=== PATIENT | female | born 1985 | race Caucasian/White ===

== ENCOUNTER 2017-10-30 09:29 | Emergency (ER) | payer MEDICARE, MEDICAID, SELFPAY | END 2017-10-30 09:55 | disposition home or self-care (01) | PROVIDERS: Emergency Provider Nurse Practitioner Family; Family Provider Internal Medicine Adolescent Medicine; Visit Provider Nurse Practitioner Family | DX: H66.004 Acute suppurative otitis media without spontaneous rupture of ear drum, recurrent, right ear (principal); I10 Essential (primary) hypertension; F17.210 Nicotine dependence, cigarettes, uncomplicated; F32.9 Major depressive disorder, single episode, unspecified; Z79.899 Other long term (current) drug therapy | CPT/HCPCS: 99201 ==

== ENCOUNTER 2017-12-26 11:38 | Emergency (ER) | payer MEDICARE, MEDICAID, SELFPAY ==
[2017-12-26 11:54] VITALS: BP 133/95; PULSE 100; RESP 18; TEMP 36.8; O2SAT 99; BMI 35.5
--- NOTE | 2017-12-26 12:12 | HMH.EDUTC ---
[facility] [place]ression: Dental infection Disposition: Home, Self-Care Condition on Discharge: Good Instructions: DI for Dental Pain, Tooth Abscess, Tooth Decay Additional Instructions: Follow up with dentist as advised in [facility] Take medication as prescribed Use Dental balls as advised in the office today Continue to call to see if there is another dentist that could get you in sooner REturn if needed If you began to have any trouble breathing, swelling, or life threatening complaints go straight to ER Prescriptions: Ibuprofen [Ibuprofen 600mg Tab] 600 mg PO Q6H PRN #20 tab PRN Reason: Moderate Pain Penicillin V Potassium 500 mg PO Q4H #28 tab Referrals: Mario Alegria MD [Primary Care Provider] - Time of Disposition: 12:23 Medical Decision Making - Medical Records Medical records reviewed: Yes: I reviewed the patient's medical records. Vital Signs: 12/26/17 11:54 Temperature 98.2 F Temperature Source Temporal Artery Scan Pulse Rate [Right] 100 H Respiratory Rate 18 Blood Pressure [Right Arm] 133/95 Blood Pressure Mean [Right Arm] 107 Blood Pressure Source [Right Arm] Automatic Cuff Blood Pressure Position [Right Arm] Sitting 02 Sat by Pulse Oximetry 99 Oxygen Delivery Method Room Air - Ravindra Inquiry Pt receiving controlled substance: No Ravindra was queried for this patient: No - Reevaluation(s) Reevaluation #1: Patient educated on how to use dental balls Advised to call around to see if there is another dental office that could get her in sooner [facility] [place] [place] - General Stated complaint: dental pain Mode of Arrival: Ambulatory Source of Information: Patient Limitations: No Limitations Description of Symptoms (Recalled from Triage Doc. by RN): DENTAL PAIN X1 WK HEENT Symptoms (Recalled from RN notes): No Resp Symptoms (Recalled from RN notes): No Skin Symptoms (Recalled from RN notes): No MS Symptoms (Recalled from RN notes): No Functional Status (Recalled from RN notes): N - History of Present Illness Provider Complaint: Patient state that she has multiple broken teeth State that she thinks one of them may be infected on her left lower bottom State that she is having pain and mild swelling State that she has tried to get into the dentist but not having any luck and cant get an appointment until a couple of weeks - Related Data Previous Rx's Medication Instructions Recorded Ibuprofen [Ibuprofen 600mg Tab] 600 mg PO Q6H PRN #20 tab 12/26/17 Penicillin V Potassium 500 mg PO Q4H #28 tab 12/26/17 Allergies Allergy/AdvReac Type Severity Reaction Status Date / Time No Known Allergies Allergy Verified 12/26/17 11:57 - Worker's Comp Is this a Worker's Comp case?: No [facility] History I have reviewed the patient's past medical history: Yes - *Social History Smoking Status: Current every day smoker Tobacco Type: cigarettes Alcohol Intake: never - Psychiatric History Expresses thoughts of harming self/others: None Suicide Plan Description: No Plan ROS Obtained: Yes All systems reviewed & no additional complaints - ENT Ears, Nose, Mouth, and Throat: Reports dental pain Physical Exam - General General appearance: alert, in no apparent distress - Expanded ENT Exam Teeth exam: Present: dental caries, fractured tooth #, other (multiple broken teeth, mild swelling and redness noted on gum line on left lower back) - Respiratory Respiratory exam: Present: normal lung sounds bilaterally. Absent: respiratory distress - Cardiovascular Cardiovascular exam: Present: regular rate, normal rhythm. Absent: JVD - Neurological Exam Neurological exam: Present: alert, oriented X3
--- NOTE | 2017-12-26 12:17 | ED_ITS ---
[facility] [place] Dis[place] Clinical Impression: Dental infection Disposition: Home, Self-Care Condition on Discharge: Good Instructions: DI for Dental Pain, Tooth Abscess, Tooth Decay Additional Instructions: Follow up with dentist as advised in [facility] Take medication as prescribed Use Dental balls as advised in the office today Continue to call to see if there is another dentist that could get you in sooner REturn if needed If you began to have any trouble breathing, swelling, or life threatening complaints go straight to ER Prescriptions: Ibuprofen [Ibuprofen 600mg Tab] 600 mg PO Q6H PRN #20 tab PRN Reason: Moderate Pain Penicillin V Potassium 500 mg PO Q4H #28 tab Referrals: Mario Alegria MD [Primary Care Provider] - Time of Disposition: 12:23 Medical Decision Making - Medical Records Medical records reviewed: Yes: I reviewed the patient's medical records. Vital Signs: 12/26/17 11:54 Temperature 98.2 F Temperature Source Temporal Artery Scan Pulse Rate [Right] 100 H Respiratory Rate 18 Blood Pressure [Right Arm] 133/95 Blood Pressure Mean [Right Arm] 107 Blood Pressure Source [Right Arm] Automatic Cuff Blood Pressure Position [Right Arm] Sitting 02 Sat by Pulse Oximetry 99 Oxygen Delivery Method Room Air - Ravindra Inquiry Pt receiving controlled substance: No Ravindra was queried for this patient: No - Reevaluation(s) Reevaluation #1: Patient educated on how to use dental balls Advised to call around to see if there is another dental office that could get her in sooner [facility] [place] HPI - General Stated complaint: dental pain Mode of Arrival: Ambulatory Source of Information: Patient Limitations: No Limitations Description of Symptoms (Recalled from Triage Doc. by RN): DENTAL PAIN X1 WK HEENT Symptoms (Recalled from RN notes): No Resp Symptoms (Recalled from RN notes): No Skin Symptoms (Recalled from RN notes): No MS Symptoms (Recalled from RN notes): No Functional Status (Recalled from RN notes): N - History of Present Illness Provider Complaint: Patient state that she has multiple broken teeth State that she thinks one of them may be infected on her left lower bottom State that she is having pain and mild swelling State that she has tried to get into the dentist but not having any luck and cant get an appointment until a couple of weeks - Related Data Previous Rx's Medication Instructions Recorded Ibuprofen [Ibuprofen 600mg Tab] 600 mg PO Q6H PRN #20 tab 12/26/17 Penicillin V Potassium 500 mg PO Q4H #28 tab 12/26/17 Allergies Allergy/AdvReac Type Severity Reaction Status Date / Time No Known Allergies Allergy Verified 12/26/17 11:57 - Worker's Comp Is this a Worker's Comp case?: No [facility] History I have reviewed the patient's past medical history: Yes - *Social History Smoking Status: Current every day smoker Tobacco Type: cigarettes Alcohol Intake: never - Psychiatric History Expresses thoughts of harming self/others: None Suicide Plan Description: No Plan ROS Obtained: Yes All systems reviewed & no additional complaints - ENT Ears, Nose, Mouth, and Throat: Reports dental pain Physical Exam - General General appearance: alert, in no apparent distress - Expanded ENT Exam Teeth exam: Present: dental caries, fractured tooth #, other (multiple broken teeth, mild swe
[2017-12-26 12:25] VITALS: BP 130/88; PULSE 90; RESP 18; TEMP 36.8
== END 2017-12-26 12:26 | disposition home or self-care (01) ==
PROVIDERS: Emergency Provider Nurse Practitioner; Family Provider Internal Medicine Adolescent Medicine; PCP Internal Medicine Adolescent Medicine
DX: K04.7 Periapical abscess without sinus (principal)
CPT/HCPCS: 99202

== ENCOUNTER 2018-01-27 16:51 | Emergency (ER) | payer MEDICARE, MEDICAID, SELFPAY ==
[2018-01-27 17:56] VITALS: BP 0/0; PULSE 0; RESP 0; TEMP -17.7; TEMP 0; O2SAT 0
== END 2018-01-27 17:59 | disposition left against medical advice (07) ==
LOC: UTC 16:59
PROVIDERS: Emergency Provider Physician Assistant; Family Provider Internal Medicine Adolescent Medicine; PCP Internal Medicine Adolescent Medicine
DX: Z53.21 Procedure and treatment not carried out due to patient leaving prior to being seen by health care provider (principal)

== ENCOUNTER → 2018-12-03 09:27 | Outpatient (CLI) | payer MEDICARE, MEDICAID, SELFPAY ==
[2018-12-03 10:29] LABS: Basophils # 0.1 K/mm3 (0-0.2); Basophils % 0.6 % (0.1-2.0); Eosinophils # 0.2 K/mm3 (0.0-0.4); Eosinophils % 1.9 % (0.1-12.0); Hematocrit 45.1 % (37.0-47.0); Lymphocytes % 31.9 % (10-50); Mean Corpuscular HGB Conc 33.3 g/dL (31.8-35.4); Mean Corpuscular Hemoglobin 28.7 pg (27.0-31.2); Mean Corpuscular Volume 86.2 fl (81-99); Mean Platelet Volume 6.6 fl (7.4-10.4); Monocytes # 0.6 K/mm3 (0.1-1.0); Monocytes % 5.9 % (1.7-9.3); Neutrophils # 5.7 K/mm3 (1.8-7.8); Neutrophils % 59.7 % (37.0-80.0); Platelet Count 365 K/mm3 (142-424); Red Blood Count 5.23 M/mm3 (4.20-5.40); Red Cell Distribution Width 13.1 % (11.5-17.5); White Blood Count 9.5 K/mm3 (4.8-10.8)
[2018-12-03 14:53] LABS: Alanine Aminotransferase 30 U/L (12-78); Albumin Level 3.7 gm/dL (3.4-5.0); Albumin/Globulin Ratio 1.1 (1.1-1.8); Alkaline Phosphatase 106 U/L (46-116); Anion Gap 15.2 mEq/L (5-15); Aspartate Amino Transferase 11 U/L (15-37); Bilirubin,Total 0.2 mg/dL (0.2-1.0); Blood Urea Nitrogen 12 mg/dL (7-18); Calcium 9.3 mg/dL (8.5-10.1); Carbon Dioxide 26 mmol/L (21.0-32.0); Chloride 102 mmol/L (98-107); Chol/HDL Ratio 3.2 (1-3.5); Cholesterol 149 mg/dL (140-200); Creatinine,Serum 0.77 mg/dL (0.55-1.02); Estimated Glomerular Filt Rate 86 ml/min (>60); GFR (African American) 104 ML/MIN (>60); Globulin 3.5 gm/dl (1.3-3.2); Glucose 94 mg/dL (74-106); HDL Cholesterol 46 mg/dL (29-89); LDL Cholesterol 70 mg/dL (0-130); Potassium 4.2 mmoL/L (3.5-5.1); Sodium 139 mmol/L (136-145); T4 (Thyroxine) 7.3 ug/dl (4.7-13.3); Thyroid Stimulating Hormone 2.92 uIU/ml (0.358-3.740); Total Protein,Serum 7.2 gm/dL (6.4-8.2); Triglycerides 164 mg/dL (30-200); VLDL Cholesterol 33 mg/dL (0-40)
[2018-12-04 09:28] LABS: Hep A Ab, IgM Negative (Negative); Hepatitis B Core Antibody IgM Negative (Negative); Hepatitis B Surface Antigen Negative (Negative)
[2018-12-04 09:33] LABS: Hepatitis C Antibody <0.1 s/co ratio (0.0-0.9); Vitamin D 25 Hydroxy 25.4 ng/mL (30.0-100.0)
== END ==
PROVIDERS: PCP Nurse Practitioner Family; Visit Provider Nurse Practitioner Family
DX: F32.9 Major depressive disorder, single episode, unspecified (principal); R10.2 Pelvic and perineal pain; E78.5 Hyperlipidemia, unspecified; E04.9 Nontoxic goiter, unspecified
CPT/HCPCS: 36415; 80053; 80061; 80074; 82652; 84436; 84443; 85025

== ENCOUNTER → 2018-12-05 13:56 | Outpatient (CLI) | payer MEDICARE, MEDICAID, SELFPAY ==
--- NOTE | 2018-12-05 13:58 | US_ITS ---
US thyroid HISTORY: Enlarged thyroid gland ITS.REASON: enlarged ORDERING PHYSICIAN: Kassie Stratton PATIENT AGE: 33 years Comparison: None FINDINGS: Right lobe: 4.4 x 1.7 x 1.3 cm. There is a 6 mm slightly hypoechoic nodule with slight increased echogenicity centrally within the mid polar region. The nodule is fairly well-circumscribed Left lobe: 3.8 x 1.3 x 1.6 cm. Homogeneous echogenicity Isthmus: Unremarkable IMPRESSION: Mildly enlarged right lobe of the thyroid gland with an indeterminate 6 mm nodule. Six-month follow-up ultrasound recommended
== END ==
PROVIDERS: PCP Nurse Practitioner Family; Visit Provider Nurse Practitioner Family
DX: E04.9 Nontoxic goiter, unspecified (principal)
CPT/HCPCS: 76536

== ENCOUNTER → 2019-06-24 14:35 | Outpatient (CLI) | payer MEDICARE, MEDICAID, SELFPAY ==
--- NOTE | 2019-06-24 14:36 | US_ITS ---
PROCEDURE: US THYROID CLINICAL INDICATION: 6 mth f/u Follow-up thyroid nodule COMPARISON: THY US thyroid from 12/05/2018 FINDINGS: Right lobe: 4 x 1.8 x 2.7 cm 5 mm hypoechoic nodule mid polar region unchanged Left lobe: 4.1 x 1.3 x 1.6 cm. Unremarkable Isthmus: Unremarkable Additional findings: IMPRESSION: No change 5 mm right thyroid nodule Dictated by: Rehan Guerin MD 06/25/2019 14:31 Signed by: <Electronically signed by Rehan Guerin MD in [place]> 06/25/2019 14:31
== END ==
PROVIDERS: PCP Nurse Practitioner Family; Visit Provider Nurse Practitioner Family
DX: E04.1 Nontoxic single thyroid nodule (principal); E04.9 Nontoxic goiter, unspecified
CPT/HCPCS: 76536

== ENCOUNTER → 2019-06-26 12:57 | Outpatient (CLI) | payer MEDICARE, MEDICAID, SELFPAY ==
--- NOTE | 2019-06-26 13:00 | XR_ITS ---
PROCEDURE: XR FOOT WT BEARING RT 3V CLINICAL INDICATION: pain COMPARISON: No exams were available for comparison FINDINGS: There is moderate hallux valgus with osteo arthritic change of the 1st MTP joint. Prominent bony hypertrophic changes are present at the talonavicular joint. There is some flattening of the navicular with sclerosis of the talonavicular joint. 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
--- NOTE | 2019-06-26 13:00 | XR_ITS ---
PROCEDURE: XR FOOT WT BEARING LT 3V CLINICAL INDICATION: pain COMPARISON: No exams were available for comparison FINDINGS: No fracture, dislocation, lytic change, or blastic change evident. Mild bony hypertrophic changes present at the navicular and talonavicular joint with mild pes planus IMPRESSION: Mild degenerative change with mild pes planus Dictated by: Rehan Guerin MD 06/26/2019 17:21 Signed by: <Electronically signed by Rehan Guerin MD in [place]> 06/26/2019 17:21
--- NOTE | 2019-06-26 13:00 | XR_ITS ---
PROCEDURE: XR ANKLE WT BEARING RT MIN 3V CLINICAL INDICATION: pain COMPARISON: No exams were available for comparison FINDINGS: No fracture, dislocation, lytic change, or blastic change evident. No significant degenerative change IMPRESSION: No acute findings. Dictated by: Rehan Guerin MD 06/26/2019 17:24 Signed by: <Electronically signed by Rehan Guerin MD in [place]> 06/26/2019 17:24
--- NOTE | 2019-06-26 13:00 | XR_ITS ---
PROCEDURE: XR ANKLE WT BEARING LT MIN 3V CLINICAL INDICATION: pain COMPARISON: No exams were available for comparison FINDINGS: No fracture, dislocation, lytic change, or blastic change evident. IMPRESSION: Negative left ankle Dictated by: Rehan Guerin MD 06/26/2019 17:23 Signed by: <Electronically signed by Rehan Guerin MD in [place]> 06/26/2019 17:23
== END ==
PROVIDERS: PCP Nurse Practitioner Family; Visit Provider Podiatrist
DX: M79.672 Pain in left foot (principal); M79.671 Pain in right foot; M25.572 Pain in left ankle and joints of left foot; M25.571 Pain in right ankle and joints of right foot
CPT/HCPCS: 73610; 73630

== ENCOUNTER → 2019-07-10 08:33 | Outpatient (CLI) | payer MEDICARE, MEDICAID, SELFPAY ==
--- NOTE | 2019-07-10 08:40 | XR_ITS ---
PROCEDURE: XR DEXA AXIAL SKELETON CLINICAL HISTORY: congenital foot abnormality COMPARISON: No exams were available for comparison TECHNIQUE: FINDINGS: The L1-L4 density is 1.296 grams/centimeters sq with T-score 1.0. Mean hip density is 1.238 grams/centimeters sq with a T-score 1.8 IMPRESSION: Normal bone density with low fracture risk Dictated by: Rehan Guerin MD 07/10/2019 09:51 Signed by: <Electronically signed by Rehan Guerin MD in [place]> 07/10/2019 09:51
--- NOTE | 2019-07-10 09:17 | MR_ITS ---
PROCEDURE: MR ANKLE RT WO/W CON CLINICAL INDICATION: Surgical Planning Right foot and ankle pain. Limited range of motion COMPARISON: XR FOOT WT BEARING LT 3V from 06/26/2019 XR FOOT WT BEARING RT 3V from 06/26/2019 MR FOOT RT WO/W CON from 07/10/2019 TECHNIQUE: Multiplanar multi echo sequences performed without and with contrast FINDINGS: There is deformity of the navicular having a prominent concave margin posteriorly with osteoarthritic change of the talonavicular joint and spurring superiorly. There is increased T2 signal involving the mid and medial aspect of the navicular consistent with underlying bone marrow edema. No obvious fracture. The tibiofibular ligaments appear intact. There is thinning of the anterior talofibular ligament consistent with sprain or partial tear. Small amount fluid is present deep to the ATFL. Small amount fluid is also noted at the posterior aspect of the ankle joint. The deltoid ligament appears intact. The subtalar joints are unremarkable. The Achilles tendon has an unremarkable appearance. The Peroni ill tendons are unremarkable. The posterior tibialis an flexor digitorum longus are unremarkable. The flexor hallucis longus tendon has an abnormal course lying more medial than normally. The tendon is lateral to the flexor hallucis longus distal to the medial malleolus. IMPRESSION: 1. Deformity of the navicular with flattening on concave posterior margin with osteoarthritic change of the talonavicular joint with some bone marrow edema of the medial aspect of the navicular 2. Sprain or partial tear of the ATFL 3. Abnormal course of the flexor hallucis longus tendon Dictated by: Rehan Guerin MD 07/13/2019 11:12 Signed by: <Electronically signed by Rehan Guerin MD in [place]> 07/13/2019 11:12
--- NOTE | 2019-07-10 09:17 | MR_ITS ---
PROCEDURE: MR FOOT RT WO/W CON CLINICAL INDICATION: Surgical Planning Osteoarthritis, pain, hallux valgus, COMPARISON: X-ray foot 06/26/2019 TECHNIQUE: Routine multiplanar multi echo sequences are performed without and with contrast enhancement. FINDINGS: Please see MRI of the ankle for description of the ankle and hind and midfoot. There is moderate hallux valgus with bunion formation. The tarsal metatarsal junction is unremarkable. No fracture, dislocation, or other significant anomaly evident. IMPRESSION: Hallux valgus with bunion formation Dictated by: Rehan Guerin MD 07/13/2019 11:18 Signed by: <Electronically signed by Rehan Guerin MD in [place]> 07/13/2019 11:18
== END ==
PROVIDERS: PCP Nurse Practitioner Family; Visit Provider Podiatrist
DX: M81.0 Age-related osteoporosis without current pathological fracture (principal); M21.41 Flat foot [pes planus] (acquired), right foot; M21.42 Flat foot [pes planus] (acquired), left foot
CPT/HCPCS: 73720; 73723; 77080; A9576

== ENCOUNTER → 2019-09-08 09:23 | Outpatient (POV) | payer MEDICARE, OTHER, SELFPAY | PROVIDERS: Visit Provider Specialist | DX: R20.2 Paresthesia of skin (principal); M79.605 Pain in left leg; M79.604 Pain in right leg | CPT/HCPCS: 95886; 95908 ==

== ENCOUNTER → 2019-10-16 11:43 | Outpatient (CLI) | payer MEDICARE, OTHER, SELFPAY ==
[2019-10-16 12:28] LABS: Basophils # 0.1 K/mm3 (0-0.2); Basophils % 0.7 % (0.1-2.0); Eosinophils # 0.3 K/mm3 (0.0-0.4); Eosinophils % 3.2 % (0.1-12.0); Hematocrit 48.8 % (37.0-47.0); Hemoglobin 15.8 g/dL (12.2-16.2); Lymphocytes # 2.9 K/mm3 (0.7-4.5); Lymphocytes % 30.9 % (10-50); Mean Corpuscular HGB Conc 32.3 g/dL (31.8-35.4); Mean Corpuscular Hemoglobin 28.5 pg (27.0-31.2); Mean Corpuscular Volume 88.1 fl (81-99); Mean Platelet Volume 7.5 fl (7.4-10.4); Monocytes # 0.6 K/mm3 (0.1-1.0); Monocytes % 6.7 % (1.7-9.3); Neutrophils # 5.5 K/mm3 (1.8-7.8); Neutrophils % 58.5 % (37.0-80.0); Platelet Count 276 K/mm3 (142-424); Red Blood Count 5.54 M/mm3 (4.20-5.40); Red Cell Distribution Width 12.7 % (11.5-17.5); White Blood Count 9.4 K/mm3 (4.8-10.8)
[2019-10-16 13:52] LABS: Alanine Aminotransferase 96 U/L (12-78); Albumin Level 4.1 gm/dL (3.4-5.0); Albumin/Globulin Ratio 1.1 (1.1-1.8); Alkaline Phosphatase 99 U/L (46-116); Aspartate Amino Transferase 42 U/L (15-37); Bilirubin,Total 0.3 mg/dL (0.2-1.0); Blood Urea Nitrogen 13 mg/dL (7-18); C-Reactive Protein 0.7 mg/dL (0.0-0.9); Calcium 9.6 mg/dL (8.5-10.1); Carbon Dioxide 30 mmol/L (21.0-32.0); Chloride 102 mmol/L (98-107); Estimated Glomerular Filt Rate 83 ml/min (>60); GFR (African American) 100 ML/MIN (>60); Globulin 3.6 gm/dl (1.3-3.2); Glucose 90 mg/dL (74-106); Sodium 140 mmol/L (136-145); Total Protein,Serum 7.7 gm/dL (6.4-8.2)
[2019-10-16 14:37] LABS: Erythrocyte Sedimentation Rate 5 mm/hr (0-20)
[2019-10-17 10:48] LABS: Folate 19.3 ng/mL (>3.0); Vitamin B12 438 pg/mL (232-1245); Vitamin D 25 Hydroxy 32.8 ng/mL (30.0-100.0)
[2019-10-18 15:25] LABS: HBV IU/mL HBV DNA not detected IU/mL (.)
== END ==
PROVIDERS: Visit Provider Podiatrist
DX: B18.2 Chronic viral hepatitis C (principal); M21.41 Flat foot [pes planus] (acquired), right foot; M21.42 Flat foot [pes planus] (acquired), left foot; G60.3 Idiopathic progressive neuropathy; E04.1 Nontoxic single thyroid nodule; E66.9 Obesity, unspecified
CPT/HCPCS: 36415; 80053; 82607; 82652; 82746; 84443; 85025; 85651; 86140; 87517

== ENCOUNTER → 2019-11-24 13:35 | Outpatient (CLI) | payer MEDICARE, OTHER, SELFPAY ==
--- NOTE | 2019-11-24 13:36 | US_ITS ---
PROCEDURE: US TRANSVAGINAL CLINICAL INDICATION: US T/V- DUB Dysfunctional uterine bleeding COMPARISON: PTV US PELVIS-TRANSVAGINAL ONLY from 01/17/2017 FINDINGS: UTERUS: 9cm x 6cmx 3cm with a combined endometrial thickness of 7.5mm LEFT OVARY: [id number] with a volume of 8ml. RIGHT OVARY: [id number] with a volume of 8.2ml. There is a small nabothian cyst. There is a scar noted. The body in the fundus of the uterus are not well delineated. No adnexal mass. IMPRESSION: Somewhat limited exam. No acute findings evident Dictated by: Rehan Guerin MD 11/24/2019 16:32 Electronically signed by Rehan Guerin MD in [place] 11/24/2019 16:32
== END ==
PROVIDERS: PCP Nurse Practitioner Family; Visit Provider Obstetrics & Gynecology
DX: N93.8 Other specified abnormal uterine and vaginal bleeding (principal)
CPT/HCPCS: 76830

== ENCOUNTER → 2019-12-05 12:49 | Outpatient (CLI) | payer MEDICARE, OTHER, SELFPAY ==
--- NOTE | 2019-12-05 12:49 | MR_ITS ---
PROCEDURE: MR LUMBAR SPINE WO CON CLINICAL INDICATION: back pain Right foot numbness COMPARISON: None TECHNIQUE: Standard multiplanar multiecho sequences are performed without contrast. 3-D MIP and myelographic images are also rendered and reviewed FINDINGS: Routine multiplanar multisequence exam demonstrates the vertebrae to be of normal height and alignment with no malignant bone marrow signal. At L4-5 there is disc bulge in foraminal regions right greater than left. Focal disc extrusion into the right neural foramen is apparent contacting right L4 nerve root sleeve. Disc herniation is suspected. Some nerve root impingement should be considered clinically. No significant mass effect on the thecal sac is apparent. Remaining disc spaces have a normal appearance. IMPRESSION: Disc bulge and right foraminal disc extrusion L4-5 with bilateral foraminal stenosis right greater than left. Impingement of right L4 nerve root sleeve should be considered clinically. Dictated by: Duran Silva 12/05/2019 14:49 Electronically signed by Duran Silva in [place] 12/05/2019 14:49
== END ==
PROVIDERS: PCP Nurse Practitioner Family; Visit Provider Specialist
DX: E66.9 Obesity, unspecified (principal); G89.29 Other chronic pain; M25.571 Pain in right ankle and joints of right foot; M54.41 Lumbago with sciatica, right side; M79.673 Pain in unspecified foot; R20.0 Anesthesia of skin
CPT/HCPCS: 72148; 76376

== ENCOUNTER → 2019-12-18 10:57 | Outpatient (CLI) | payer MEDICARE, OTHER, SELFPAY | PROVIDERS: PCP Nurse Practitioner Family; Visit Provider Specialist | DX: R06.83 Snoring; R40.0 Somnolence; E66.9 Obesity, unspecified; Z72.0 Tobacco use; G47.30 Sleep apnea, unspecified | CPT/HCPCS: G0399 ==

== ENCOUNTER → 2020-01-01 13:36 | Outpatient (POV) | payer MEDICARE, OTHER, SELFPAY | PROVIDERS: PCP Nurse Practitioner Family; Visit Provider Neurological Surgery | DX: Z00.00 Encounter for general adult medical examination without abnormal findings (principal) ==

== ENCOUNTER → 2020-01-05 10:29 | Outpatient (CLI) | payer MEDICARE, OTHER, SELFPAY ==
[2020-01-05 11:47] LABS: Basophils # 0.1 K/mm3 (0-0.2); Basophils % 0.7 % (0.1-2.0); Eosinophils # 0.2 K/mm3 (0.0-0.4); Eosinophils % 2.9 % (0.1-12.0); Hematocrit 43.5 % (37.0-47.0); Hemoglobin 14.5 g/dL (12.2-16.2); Lymphocytes # 3.3 K/mm3 (0.7-4.5); Lymphocytes % 39.8 % (10-50); Mean Corpuscular HGB Conc 33.4 g/dL (31.8-35.4); Mean Corpuscular Hemoglobin 28.3 pg (27.0-31.2); Mean Corpuscular Volume 84.7 fl (81-99); Mean Platelet Volume 7.1 fl (7.4-10.4); Monocytes # 0.6 K/mm3 (0.1-1.0); Monocytes % 6.8 % (1.7-9.3); Neutrophils # 4.1 K/mm3 (1.8-7.8); Neutrophils % 49.8 % (37.0-80.0); Platelet Count 289 K/mm3 (142-424); Red Blood Count 5.13 M/mm3 (4.20-5.40); White Blood Count 8.2 K/mm3 (4.8-10.8)
[2020-01-05 12:06] LABS: HCG Qualitative, Serum Negative (Negative)
[2020-01-05 12:07] LABS: Chloride 102 mmol/L (98-107)
[2020-01-05 12:08] LABS: Potassium 4.3 mmoL/L (3.5-5.1); Sodium 138 mmol/L (136-145)
[2020-01-05 12:10] LABS: Blood Urea Nitrogen 14 mg/dl (7-17); Estimated Glomerular Filt Rate 82 ml/min (>60); GFR (African American) 99 ML/MIN (>60)
[2020-01-05 12:11] LABS: Alanine Aminotransferase 69 U/L (12-78); Albumin Level 4.5 g/dl (3.5-5.0); Albumin/Globulin Ratio 1.7 (1.1-1.8); Alkaline Phosphatase 72 U/L (38-126); Anion Gap 12.3 mEq/L (5-15); Aspartate Amino Transferase 38 U/L (14-36); Bilirubin,Total 0.3 mg/dl (0.2-1.3); Calcium 10.4 mg/dl (8.4-10.2); Carbon Dioxide 28 mmol/L (22.0-30.0); Globulin 2.7 g/dL (1.3-3.2); Glucose 66 mg/dl (74-100); Total Protein,Serum 7.2 g/dl (6.3-8.2)
== END ==
PROVIDERS: Visit Provider Obstetrics & Gynecology
DX: Z01.818 Encounter for other preprocedural examination (principal); N93.8 Other specified abnormal uterine and vaginal bleeding
CPT/HCPCS: 36415; 80053; 84703; 85025

== ENCOUNTER 2020-03-09 15:31 | Emergency (ER) | payer MEDICARE, OTHER, SELFPAY ==
[2020-03-09 15:47] VITALS: BP 128/94; PULSE 99; RESP 19; TEMP 36.7; O2SAT 99; BMI 32.9
--- NOTE | 2020-03-09 16:02 | HMH.EDUTC ---
[facility] [place] [facility] [place] Clinical Impression: Torticollis Disposition: Home, Self-Care Condition on Discharge: Good Instructions: Torticollis, DI for Torticollis, Cyclobenzaprine, DI for Muscle Spasm Additional Instructions: *Etodolac emily 6 hours with meal as needed for pain/inflammation *Remember you had a Toradol shot in the clinic today, which is similar to Etodolac do not start this medication until tomorrow *Not additional anti-inflammatory like motrin, aleve, advil with the above amount of Etodolac. You can still take Tylenol every 4 hours as needed if you need something else for pain *Ice 20 minutes every 2 hours for the first 48 hours after the initial injury followed by moist heat every 20 minutes 3-4 times a day to affected area *Muscle relaxer every 8 hours as needed for muscle spasms but remember, it WILL cause drowsiness You cannot take it and drive, operate machinery or care for small children. *Keep this area active, no movement leads to more stiffness, However take it easy and avoid heavy lifting pushing or pulling *Follow up with you family doctor if no improvement for further treatment Straight to ER if any life threatening symptoms or worsening of symptoms Prescriptions: Etodolac [Etodolac 200mg Cap*] 200 mg PO Q6H PRN #20 cap PRN Reason: Moderate Pain Transmission Status: Received by [facility] Cyclobenzaprine HCl [Flexeril 10mg tablet] 10 mg PO TID PRN #15 tab PRN Reason: Muscle Spasm Transmission Status: Received by [facility] Referrals: Kassie Stratton APRN [Primary Care Provider] - As needed Time of Disposition: 16:16 Medical Decision Making - Ravindra Inquiry Pt receiving controlled substance: No Ravindra was queried for this patient: No Vital Signs: 03/09/20 15:47 03/09/20 16:21 Temperature 98.0 F 98.0 F Temperature Source Oral Pulse Rate 99 H Pulse Rate [Right Brachial] 99 H Respiratory Rate 19 19 Blood Pressure 128/94 H Blood Pressure [Right Arm] 128/94 H Blood Pressure Mean [Right Arm] 105 Blood Pressure Source [Right Arm] Automatic Cuff Blood Pressure Position [Right Arm] Sitting 02 Sat by Pulse Oximetry 99 Oxygen Delivery Method Room Air Orders (Tests/Meds): ED MEDICATIONS Discontinued Medications Generic Name Dose Route Start Last Admin Trade Name Brigitte PRN Reason Stop Dose Admin Ketorolac Tromethamine 60 mg 03/09/20 16:05 03/09/20 16:21 Toradol 60mg/2ml Vial IM 03/09/20 16:06 60 mg ONCE ONE Administration - Reevaluation(s) Time: 16:11 Reevaluation #1: Denies , reports she had a tubal [facility] [place] [facility] [place] - General Stated complaint: AO [id number] pulled muscle in back Time Seen by Provider: 03/09/20 16:02 Mode of Arrival: Ambulatory Source of Information: Patient Limitations: No Limitations Description of Symptoms (Recalled from Triage Doc. by RN): PATIENT C/O PAIN IN NECK AND UPPER-MID BACK SINCE THIS MORNING. ALSO C/O NUMBNESS DOWN LEFT ARM NO KNOWN INJURY HEENT Symptoms (Recalled from RN notes): No Resp Symptoms (Recalled from RN notes): No Skin Symptoms (Recalled from RN notes): No MS Symptoms (Recalled from RN notes): Yes Functional Status (Recalled from RN notes): WNL - History of Present Illness Provider Complaint: Patient states that she normally is on Flexeril for muscle spasms and she is out of them States that she thinks she may have slept wrong States that when she woke up this morning she was having pain in her left shoulder area and felt like she was having a muscle spasm and unable to turn her head States that she feels like it is pressing on a nerve because certain ways she moves it makes her hand and fingers feel funny. Denies known injury - Related Data Home Medications Medication Instructions Recorded Confirmed Cyclobenzaprine HCl 10 mg PO BIDP PRN 01/06/20 03/09/20 [Cyclobenzaprine 10mg Tab] Previous Rx's Medication Instructions Recorded cetirizine 10 mg tablet 10 mg PO DAILY
[2020-03-09 16:21] VITALS: BP 128/94; PULSE 99; RESP 19; TEMP 36.7; O2SAT 99
== END 2020-03-09 16:35 | disposition home or self-care (01) ==
PROVIDERS: Emergency Provider Nurse Practitioner; PCP Nurse Practitioner Family
DX: M43.6 Torticollis (principal); F41.8 Other specified anxiety disorders; F17.210 Nicotine dependence, cigarettes, uncomplicated; F12.10 Cannabis abuse, uncomplicated
CPT/HCPCS: G0463; 96372; 99201

== ENCOUNTER 2020-10-27 14:51 | Emergency (ER) | payer MEDICARE, OTHER, SELFPAY ==
[2020-10-27 14:55] VITALS: BP 117/74; PULSE 87; RESP 20; TEMP 37.2; O2SAT 97; BMI 37.9
--- NOTE | 2020-10-27 15:07 | HMH.EDUTC ---
[facility] [place] Disposition Clinical Impression: Otitis media Qualifiers: Otitis media type: unspecified Laterality: left Qualified Code(s): H66.92 - Otitis media, unspecified, left ear Disposition: Home, Self-Care Condition on Discharge: Good Instructions: Middle Ear Infection, Amoxicillin, Ibuprofen Additional Instructions: *Monitor Temp, Over the counter Motrin or Tylenol as directed/as needed Tylenol every 4 hours and Motrin every 6 hours (as long as your family doctor has told you that you can take it) for fever or pain. and straight to ER if unable to lower temp less than 101.0 after medication given *Warm salt water gargles may help to soothe the throat and help to clear nasal passages *Warm fluids like tea with honey may help to soothe the throat *Sleep elevated *Humidifier/Vaporizer Take medication as prescribed Follow up IMMEDIATELY for new or worsening symptoms or no Noticeable improvement over the next 48-72 hours. 911 for difficulty breathing or swallowing Prescriptions: Amoxicillin [Amoxicillin 875MG Tab] 875 mg PO Q12H #20 tab Transmission Status: Pending to [facility] Referrals: Kassie Stratton APRN [Primary Care Provider] - As needed Time of Disposition: 15:11 Medical Decision Making - Ravindra Inquiry Pt receiving controlled substance: No Ravindra was queried for this patient: No Vital Signs: 10/27/20 14:55 Temperature 98.9 F Temperature Source Oral Pulse Rate [Right Brachial] 87 Respiratory Rate 20 Blood Pressure [Right Arm] 117/74 Blood Pressure Mean [Right Arm] 88 Blood Pressure Source [Right Arm] Automatic Cuff Blood Pressure Position [Right Arm] Sitting 02 Sat by Pulse Oximetry 97 Oxygen Delivery Method Room Air [facility] [place] HPI - General Stated complaint: Headache, ear pain Time Seen by Provider: 10/27/20 15:07 Mode of Arrival: Ambulatory Source of Information: Patient Limitations: No Limitations Description of Symptoms (Recalled from Triage Doc. by RN): PATIENT C/O BILATERAL EAR PAIN AND HEADACHE X 1 WEEK HEENT Symptoms (Recalled from RN notes): Yes Resp Symptoms (Recalled from RN notes): No Skin Symptoms (Recalled from RN notes): No MS Symptoms (Recalled from RN notes): No Functional Status (Recalled from RN notes): WNL - History of Present Illness Provider Complaint: Patient states that she has been having bilateral ear pain for over a week with pain shooting up from her ear into her head and making her have a headache at times State that she has been feeling like she is having pressure in her ears and thinks she may have an ear infection - Related Data Home Medications Medication Instructions Recorded Confirmed Cariprazine HCl [Vraylar] 4.5 mg PO DAILY 10/27/20 10/27/20 Ropinirole HCl See Rx Instructions .ROUTE .COMPLEX 10/27/20 10/27/20 hydrOXYzine pamoate [Vistaril] 25 mg PO HS 10/27/20 10/27/20 Previous Rx's Medication Instructions Recorded Amoxicillin [Amoxicillin 875MG 875 mg PO Q12H #20 tab 10/27/20 Tab] Allergies Allergy/AdvReac Type Severity Reaction Status Date / Time prednisone Allergy Mild UPSET Verified 08/09/20 09:54 STOMACH - Worker's Comp Is this a Worker's Comp case?: No [facility] History - Hepatitis A Screen Drug use history?: No High risk sexual behaviors?: No History of sexually transmitted infection?: No Currently employed?: No Childcare worker?: No Do you have indoor plumbing?: Yes Do you have electricity?: Yes Attestation statement:: This patient has been screened for Hepatitis A risk factors. I have reviewed the patient's past medical history: Yes Medical History: Reports:: Anxiety, Depression, Migraine Denies:: Cancer, Diabetes Mellitus Type 1, Diabetes Mellitus Type 2, Internal Pacemaker, MRSA, Seizures Other Medical History: Denies: Blood Transfusion Reaction Comment: obesity, ddd Other Surgeries: Yes: , Tubal Ligation, Other (Right foot). No: Pacemaker Amputation: No Fractures: No Comment:
[2020-10-27 15:25] VITALS: BP 117/74; PULSE 87; RESP 20; TEMP 37.2; O2SAT 97
== END 2020-10-27 15:25 | disposition home or self-care (01) ==
PROVIDERS: Emergency Provider Nurse Practitioner; PCP Nurse Practitioner Family
DX: H66.92 Otitis media, unspecified, left ear (principal); F41.8 Other specified anxiety disorders; F17.210 Nicotine dependence, cigarettes, uncomplicated; Z79.899 Other long term (current) drug therapy
CPT/HCPCS: 99201

== ENCOUNTER → 2021-01-05 09:20 | Outpatient (CLI) | payer MEDICARE, OTHER, SELFPAY ==
[2021-01-05 10:03] LABS: Basophils # 0.1 K/mm3 (0-0.2); Basophils % 0.7 % (0.1-2.0); Eosinophils # 0.2 K/mm3 (0.0-0.4); Eosinophils % 2.5 % (0.1-12.0); Hematocrit 46.7 % (37.0-47.0); Hemoglobin 15.6 g/dL (12.2-16.2); Lymphocytes % 30.8 % (10-50); Mean Corpuscular HGB Conc 33.4 g/dL (31.8-35.4); Mean Corpuscular Hemoglobin 28.9 pg (27.0-31.2); Mean Corpuscular Volume 86.7 fl (81-99); Mean Platelet Volume 7.1 fl (7.4-10.4); Monocytes # 0.7 K/mm3 (0.1-1.0); Monocytes % 6.6 % (1.7-9.3); Neutrophils # 5.8 K/mm3 (1.8-7.8); Neutrophils % 59.4 % (37.0-80.0); Platelet Count 254 K/mm3 (142-424); Red Blood Count 5.39 M/mm3 (4.20-5.40); Red Cell Distribution Width 13.5 % (11.5-17.5); White Blood Count 9.8 K/mm3 (4.8-10.8)
[2021-01-05 10:11] LABS: Hemoglobin A1C 5.5 % (4.0-6.0)
[2021-01-05 10:30] LABS: Chloride 107 mmol/L (98-107)
[2021-01-05 10:31] LABS: Potassium 4.3 mmoL/L (3.5-5.1); Sodium 139 mmol/L (136-145)
[2021-01-05 10:33] LABS: Alanine Aminotransferase 187 U/L (12-78); Alkaline Phosphatase 106 U/L (38-126); Anion Gap 12.3 mEq/L (5-15); Aspartate Amino Transferase 100 U/L (14-36); Bilirubin,Total 0.5 mg/dl (0.2-1.3); Blood Urea Nitrogen 11 mg/dl (7-17); Carbon Dioxide 24 mmol/L (22.0-30.0); Cholesterol 206 mg/dl (140-200); Estimated Glomerular Filt Rate 95 ml/min (>60); GFR (African American) 115 ML/MIN (>60); Iron 75 ug/dL (37-170); Triglycerides 195 mg/dl (30-150); VLDL Cholesterol 39 mg/dL (0-40)
[2021-01-05 10:34] LABS: Albumin Level 4.6 g/dl (3.5-5.0); Albumin/Globulin Ratio 1.5 (1.1-1.8); Calcium 10.2 mg/dl (8.4-10.2); Chol/HDL Ratio 5.2 (1-3.5); Glucose 131 mg/dl (74-100); HDL Cholesterol 40 mg/dl (40-60); Total Protein,Serum 7.6 g/dl (6.3-8.2)
[2021-01-05 10:45] LABS: Total Iron Binding Capacity 364 ug/dL (265-497)
[2021-01-05 10:50] LABS: Triiodothryronine (T3) Uptake 29 % (23.5-40.5)
[2021-01-05 10:51] LABS: Free Thyroxine Index 2.5 ug/dL (5.93-13.13); T4 (Thyroxine) 8.6 ug/dl (5.53-11.0)
[2021-01-05 11:04] LABS: Thyroid Stimulating Hormone 2.29 uIU/mL (0.465-4.68)
[2021-01-05 11:24] LABS: Vitamin B12 825 pg/mL (239-931)
[2021-01-07 18:38] LABS: FSH 8.4 mIU/mL (.); Progesterone 0.1 ng/mL (.)
[2021-01-09 18:45] LABS: Estrogen 79 pg/mL (.)
[2021-01-12 14:57] LABS: 1,25 Dihydroxy Vitamin D 57 pg/mL (.); 1,25-Dihydroxy, Vitamin D-2 <10 pg/mL (.); 1,25-Dihydroxy, Vitamin D-3 57 pg/mL (.)
== END ==
PROVIDERS: Visit Provider Nurse Practitioner Psychiatric/Mental Health
DX: Z79.899 Other long term (current) drug therapy (principal); Z00.00 Encounter for general adult medical examination without abnormal findings; R53.83 Other fatigue; M43.6 Torticollis; Z68.38 Body mass index [BMI] 38.0-38.9, adult; R74.8 Abnormal levels of other serum enzymes
CPT/HCPCS: 36415; 80053; 80061; 82607; 82652; 82672; 83001; 83036; 83540; 83550; 84144; 84436; 84443; 84479; 85025

== ENCOUNTER 2021-02-11 11:19 | Emergency (ER) | payer MEDICARE, BC, SELFPAY ==
[2021-02-11 11:22] VITALS: RESP 16; O2SAT 98; BMI 41.3
--- NOTE | 2021-02-11 11:43 | HMH.EDUTC ---
[facility] [place] Clinical Impression: Otitis media Qualifiers: Otitis media type: suppurative Chronicity: acute Laterality: bilateral Recurrence: non-recurrent Spontaneous tympanic membrane rupture: without spontaneous rupture Qualified Code(s): H66.003 - Acute suppurative otitis media without spontaneous rupture of ear drum, bilateral Disposition: Home, Self-Care Condition on Discharge: Good Instructions: Middle Ear Infection Additional Instructions: Drink plenty of fluids. Take tylenol or ibuprofen for pain or fever. Follow up with your regular doctor. GO TO THE ER FOR ANY WORSENING SYMPTOMS Prescriptions: Pseudoephedrine HCl 30 mg PO Q6HP PRN #20 tab PRN Reason: Congestion Transmission Status: [facility] by [facility] Amoxicillin/Potassium Clav [Augmentin 875-125 Tablet] 1 tab PO Q12H 10 Days #20 tab Transmission Status: [facility] Referrals: Mely Morales PA [Primary Care Provider] - Time of Disposition: 11:49 Medical Decision Making - Medical Records Medical records reviewed: No: I reviewed the patient's medical records. - Ravindra Inquiry Pt receiving controlled substance: No Vital Signs: 02/11/21 11:22 02/11/21 11:49 Temperature 98 F Temperature Source Oral Pulse Rate 89 Respiratory Rate 16 16 Blood Pressure 127/82 02 Sat by Pulse Oximetry 98 Oxygen Delivery Method Room Air [facility] - General Stated complaint: Lt ear pain Time Seen by Provider: 02/11/21 11:43 Mode of Arrival: Ambulatory Source of Information: Patient Limitations: No Limitations Description of Symptoms (Recalled from Triage Doc. by RN): left ear pain HEENT Symptoms (Recalled from RN notes): No Resp Symptoms (Recalled from RN notes): No Skin Symptoms (Recalled from RN notes): No MS Symptoms (Recalled from RN notes): No Functional Status (Recalled from RN notes): na - History of Present Illness Provider Complaint: She complains of left ear pain for the past 1 week. She states that she has a history of getting ear infections easily. - Related Data Home Medications Medication Instructions Recorded Confirmed Ropinirole HCl See Rx Instructions .ROUTE .COMPLEX 10/27/20 10/27/20 Previous Rx's Medication Instructions Recorded cariprazine 4.5 mg capsule 4.5 mg PO DAILY #30 cap 03/25/21 Amoxicillin/Potassium Clav 1 tab PO Q12H 10 Days #20 tab 02/11/21 [Augmentin 875-125 Tablet] Pseudoephedrine HCl 30 mg PO Q6HP PRN #20 tab 02/11/21 Allergies Allergy/AdvReac Type Severity Reaction Status Date / Time prednisone Allergy Mild UPSET Verified 02/11/21 11:34 STOMACH - Worker's Comp Is this a Worker's Comp case?: No Is this an [facility] Worker's Comp?: No Is this a [place] Worker's Comp?: No [facility] History - Hepatitis A Screen Drug use history?: No High risk sexual behaviors?: No History of sexually transmitted infection?: No Currently employed?: No Childcare worker?: No Do you have indoor plumbing?: Yes Do you have electricity?: Yes Attestation statement:: This patient has been screened for Hepatitis A risk factors. I have reviewed the patient's past medical history: Yes Medical History: Reports:: Anxiety, Depression, Migraine Denies:: Cancer, Diabetes Mellitus Type 1, Diabetes Mellitus Type 2, Internal Pacemaker, MRSA, Seizures Other Medical History: Denies: Blood Transfusion Reaction Comment: obesity, ddd Other Surgeries: Yes: , Tubal Ligation, Other (Right foot). No: Pacemaker Amputation: No Fractures: No Comment: Rt foot - Social History Smoking Status: Current every day smoker Tobacco Type: cigarettes # Packs/Day (cigarettes): 1 Alcohol Intake: never Alcohol Intake Frequency:: holidays/special occasions only Substance Use Type: marijuana, methamphetamine Occupational Status: employed Housing: house Household Members: family - Psychiatric History Pschychiatric History:: Reports:: Anxiety, Depression Fam
[2021-02-11 11:49] VITALS: BP 127/82; PULSE 89; RESP 16; TEMP 36.6
== END 2021-02-11 11:52 | disposition home or self-care (01) ==
PROVIDERS: Emergency Provider Nurse Practitioner Family; PCP Physician Assistant
DX: H66.003 Acute suppurative otitis media without spontaneous rupture of ear drum, bilateral (principal); F41.8 Other specified anxiety disorders; G43.709 Chronic migraine without aura, not intractable, without status migrainosus; F17.210 Nicotine dependence, cigarettes, uncomplicated; Z79.899 Other long term (current) drug therapy
CPT/HCPCS: 99202; G0463

== ENCOUNTER → 2021-04-28 15:16 | Outpatient (CLI) | payer MEDICARE, BC, SELFPAY ==
[2021-04-28 15:26] LABS: Basophils # 0.1 K/mm3 (0-0.2); Basophils % 0.8 % (0.1-2.0); Eosinophils # 0.2 K/mm3 (0.0-0.4); Eosinophils % 2.4 % (0.1-12.0); Hematocrit 48.1 % (37.0-47.0); Hemoglobin 15.7 g/dL (12.2-16.2); Lymphocytes # 3.1 K/mm3 (0.7-4.5); Mean Corpuscular HGB Conc 32.6 g/dL (31.8-35.4); Mean Corpuscular Hemoglobin 28.7 pg (27.0-31.2); Mean Corpuscular Volume 87.9 fl (81-99); Mean Platelet Volume 8.3 fl (7.4-10.4); Monocytes # 0.7 K/mm3 (0.1-1.0); Monocytes % 7.2 % (1.7-9.3); Neutrophils # 5.1 K/mm3 (1.8-7.8); Neutrophils % 55.6 % (37.0-80.0); Platelet Count 264 K/mm3 (142-424); Red Blood Count 5.48 M/mm3 (4.20-5.40); Red Cell Distribution Width 12.8 % (11.5-17.5); White Blood Count 9.1 K/mm3 (4.8-10.8)
[2021-04-28 15:29] LABS: Chloride 106 mmol/L (98-107); Potassium 4.6 mmoL/L (3.5-5.1); Sodium 141 mmol/L (136-145)
[2021-04-28 15:31] LABS: Alanine Aminotransferase 223 U/L (12-78); Aspartate Amino Transferase 140 U/L (14-36); Bilirubin,Total 0.6 mg/dl (0.2-1.3); Blood Urea Nitrogen 6 mg/dl (7-17); Estimated Glomerular Filt Rate 95 ml/min (>60); GFR (African American) 115 ML/MIN (>60)
[2021-04-28 15:32] LABS: Albumin Level 4.6 g/dl (3.5-5.0); Albumin/Globulin Ratio 1.7 (1.1-1.8); Alkaline Phosphatase 108 U/L (38-126); Anion Gap 15.6 mEq/L (5-15); Calcium 9.5 mg/dl (8.4-10.2); Carbon Dioxide 24 mmol/L (22.0-30.0); Chol/HDL Ratio 5.3 (1-3.5); Cholesterol 197 mg/dl (140-200); Globulin 2.7 g/dL (1.3-3.2); Glucose 105 mg/dl (74-100); HDL Cholesterol 37 mg/dl (40-60); Total Protein,Serum 7.3 g/dl (6.3-8.2); Triglycerides 186 mg/dl (30-150); VLDL Cholesterol 37 mg/dL (0-40)
[2021-04-28 15:43] LABS: Direct LDL Cholesterol 147.75 mg/dL (100-129)
[2021-04-28 16:03] LABS: Thyroid Stimulating Hormone 2.19 uIU/mL (0.465-4.68)
[2021-05-01 12:47] LABS: Hep A Ab, IgM Negative (Negative); Hepatitis B Core Antibody IgM Negative (Negative); Hepatitis B Surface Antigen Negative (Negative); Hepatitis C Antibody <0.1 s/co ratio (0.0-0.9)
== END ==
PROVIDERS: Visit Provider Physician Assistant
DX: E16.2 Hypoglycemia, unspecified (principal); E66.9 Obesity, unspecified; R53.83 Other fatigue; R10.2 Pelvic and perineal pain; R74.8 Abnormal levels of other serum enzymes
CPT/HCPCS: 80053; 80061; 80074; 84439; 84443; 85025

== ENCOUNTER → 2021-05-13 07:50 | Outpatient (CLI) | payer MEDICARE, BC, SELFPAY ==
--- NOTE | 2021-05-13 07:50 | US_ITS ---
PROCEDURE: US LIVER CLINICAL INDICATION: Elevated liver enzymes COMPARISON: No exams were available for comparison FINDINGS: PANCREAS: Unremarkable. No obvious mass or abnormal fluid collection. No ductal dilatation LIVER: Diffuse increased echogenicity of the liver with poor through transmission of sound consistent with hepatic steatosis. No focal liver lesion demonstrated. There is appropriate direction of blood flow within non dilated portal vein. RIGHT KIDNEY: Unremarkable. Normal size and echogenicity. No hydronephrosis GALLBLADDER: No gallstones, gallbladder wall thickening, pericholecystic fluid, or biliary dilatation. IMPRESSION: Fatty liver otherwise negative. No gallstones apparent Dictated by: Rehan Guerin MD 05/13/2021 10:34 Rehan Guerin MD in [place] 05/13/2021 10:34
== END ==
PROVIDERS: PCP Physician Assistant; Visit Provider Physician Assistant
DX: R74.8 Abnormal levels of other serum enzymes (principal)
CPT/HCPCS: 76705

== ENCOUNTER 2021-06-01 22:18 | Emergency (ER) | payer MEDICARE, BC, SELFPAY ==
[2021-06-01 22:26] VITALS: BP 131/86; PULSE 92; RESP 18; TEMP 37.1; O2SAT 96; BMI 37.1
[2021-06-01 22:50] LABS: Basophils # 0.1 K/mm3 (0-0.2); Basophils % 0.9 % (0.1-2.0); Eosinophils # 0.3 K/mm3 (0.0-0.4); Eosinophils % 2.1 % (0.1-12.0); Hematocrit 44.8 % (37.0-47.0); Hemoglobin 15.3 g/dL (12.2-16.2); Lymphocytes # 3.9 K/mm3 (0.7-4.5); Lymphocytes % 30.1 % (10-50); Mean Corpuscular HGB Conc 34.1 g/dL (31.8-35.4); Mean Corpuscular Hemoglobin 29.2 pg (27.0-31.2); Mean Corpuscular Volume 85.7 fl (81-99); Mean Platelet Volume 7.6 fl (7.4-10.4); Monocytes # 0.8 K/mm3 (0.1-1.0); Monocytes % 6.1 % (1.7-9.3); Neutrophils # 7.8 K/mm3 (1.8-7.8); Neutrophils % 60.7 % (37.0-80.0); Platelet Count 253 K/mm3 (142-424); Red Blood Count 5.22 M/mm3 (4.20-5.40); Red Cell Distribution Width 13.6 % (11.5-17.5); White Blood Count 12.9 K/mm3 (4.8-10.8)
[2021-06-01 22:59] LABS: Alanine Aminotransferase 332 U/L (12-78); Albumin Level 4.6 g/dl (3.5-5.0); Albumin/Globulin Ratio 1.5 (1.1-1.8); Alkaline Phosphatase 100 U/L (38-126); Aspartate Amino Transferase 208 U/L (14-36); Bilirubin,Total 0.6 mg/dl (0.2-1.3); Blood Urea Nitrogen 6 mg/dl (7-17); Calcium 9.6 mg/dl (8.4-10.2); Carbon Dioxide 28 mmol/L (22.0-30.0); Creatinine Clearance Estimated 162 mL/min (50-200); Estimated Glomerular Filt Rate 82 ml/min (>60); GFR (African American) 99 ML/MIN (>60); Glucose 153 mg/dl (74-100); Lactic Acid 1.5 mmol/L (0.7-2.1); Potassium 3.9 mmoL/L (3.5-5.1); Sodium 143 mmol/L (136-145); Total Protein,Serum 7.6 g/dl (6.3-8.2)
[2021-06-01 23:00] LABS: Anion Gap 15.9 mEq/L (5-15); Chloride 103 mmol/L (98-107)
[2021-06-01 23:06] LABS: C-Reactive Protein 16.7 mg/L (0-4)
--- NOTE | 2021-06-01 23:13 | HMH.EDSKAF ---
ED Disposition Clinical Impression: Paronychia of great toe, right, Elevated LFTs, SIRS (systemic inflammatory response syndrome) Disposition: Home, Self-Care Condition on Discharge: Good Instructions: DI for Paronychia Additional Instructions: use meds and call pcp for follow up and culture results Prescriptions: cephALEXin [cephALEXin 500mg capsule*] 500 mg PO TID #30 cap Transmission Status: Pending to [facility] clindamycin HCL [Clindamycin HCl] 300 mg PO TID #30 cap Transmission Status: Pending to [facility] Referrals: Mely Morales PA [Primary Care Provider] - - Critical Care Critical Care Time: No Attestation: On 06/01/21, the high probability of a clinically significant, sudden or life threatening deterioration of the following system(s) required my full and direct attention, intervention and personal management. The time I documented below is in addition to time spent performing reported procedures but includes the following listed in this critical care notation. Medical Decision Making - Medical Records Medical records reviewed: Yes: I reviewed the patient's medical records. - Ravindra Inquiry Pt receiving controlled substance: No Vital Signs: 06/01/21 22:26 Temperature 98.8 F Temperature Source Oral Pulse Rate [Right] 92 H Respiratory Rate 18 Blood Pressure [Right Arm] 131/86 Blood Pressure Mean [Right Arm] 101 Blood Pressure Source [Right Arm] Automatic Cuff Blood Pressure Position [Right Arm] Sitting 02 Sat by Pulse Oximetry 96 Oxygen Delivery Method Room Air - Lab Data Lab results reviewed: Yes: I reviewed the patient's lab results. Lab Results 06/01/21 22:38: WBC 12.9 H, RBC 5.22, Hgb 15.3, Hct 44.8, MCV 85.7, MCH 29.2, MCHC 34.1, RDW 13.6, Plt Count 253, MPV 7.6, Neut % (Auto) 60.7, Lymph % (Auto) 30.1, Morton % (Auto) 6.1, Eos % (Auto) 2.1, Baso % (Auto) 0.9, Neut # (Auto) 7.8, Lymph # (Auto) 3.9, Morton # (Auto) 0.8, Eos # (Auto) 0.3, Baso # (Auto) 0.1 06/01/21 22:38: Sodium 143, Potassium 3.9, Chloride 103, Carbon Dioxide 28, Anion Gap 15.9 H, BUN 6 L, Creatinine 0.80, Estimated Creat Clear 162, Estimated GFR 82, Est GFR ( Amer) 99, Glucose 153 H, Calcium 9.6, Total Bilirubin 0.6, AST 208 H, ALT 332 H*, Alkaline Phosphatase 100, C-Reactive Protein 16.7 H, Total Protein 7.6, Albumin 4.6, Globulin 3.0, Albumin/Globulin Ratio 1.5 06/01/21 22:38: Lactate 1.5 Result diagrams: 06/01/21 22:38 06/01/21 22:38 Orders (Tests/Meds): ED MEDICATIONS Generic Name Dose Route Start Last Admin Trade Name Freq PRN Reason Stop Dose Admin Sodium Chloride 1,000 mls @ 999 mls/hr 06/01/21 22:45 06/01/21 22:43 Sod Chlor 0.9% 1000ml Bag IV 06/01/21 23:45 999 mls/hr .Q1H1M LUCIE Administration Discontinued Medications Generic Name Dose Route Start Last Admin Trade Name Freq PRN Reason Stop Dose Admin Ketorolac Tromethamine 30 mg 06/01/21 22:38 06/01/21 22:43 Ketorolac 30mg/Ml Vial IV 06/01/21 22:39 30 mg ONCE ONE Administration ORDERS Category Date Time Status CRP [C-Reactive Protein] Stat Lab 06/01/21 22:38 Results Complete Blood Count Auto Diff Stat Lab 06/01/21 22:38 Results Comprehensive Metabolic Panel Stat Lab 06/01/21 22:38 Results Erythrocyte Sedimentation Rate Stat Lab 06/01/21 22:38 Results Procalcitonin Stat Lab 06/01/21 22:38 Results Blood Culture Stat Micro 06/01/21 22:38 Received Wound Culture and Gram Stain Stat Micro 06/01/21 23:12 Ordered Medical Decision Narrative: paronychia rt great toe and uncertain etiology of elevated lft has nl hep panel Skin/Abscess/FB HPI - General Chief complaint: Extremity Injury, Lower Stated complaint: R foot big infected Time Seen by Provider: 06/01/21 23:00 Mode of Arrival: Ambulatory Source of Information: Patient, Medical Record Limitations: No Limitations Description of Symptoms (Recalled from ER Triage Doc. by RN): Pt state she clipp
[2021-06-01 23:40] VITALS: BP 136/84; PULSE 83; RESP 18; TEMP 37.1; O2SAT 97
[2021-06-01 23:45] LABS: Erythrocyte Sedimentation Rate 13 mm/hr (0-20)
== END 2021-06-01 23:44 | disposition home or self-care (01) ==
PROVIDERS: Emergency Provider Emergency Medicine; PCP Physician Assistant
DX: L03.031 Cellulitis of right toe (principal); R65.10 Systemic inflammatory response syndrome (SIRS) of non-infectious origin without acute organ dysfunction; R94.5 Abnormal results of liver function studies; F41.8 Other specified anxiety disorders; R73.9 Hyperglycemia, unspecified; Z87.891 Personal history of nicotine dependence; Z79.899 Other long term (current) drug therapy
CPT/HCPCS: 80053; 83605; 84145; 85025; 85651; 86140; 87040; 87070; 87186; 87205; 96365; 96367; 96375; 99283

== ENCOUNTER → 2021-11-29 09:49 | Outpatient (CLI) | payer MEDICARE, BC, SELFPAY | PROVIDERS: Visit Provider Nurse Practitioner | DX: Z20.822 Contact with and (suspected) exposure to COVID-19 (principal) | CPT/HCPCS: C9803; U0003; U0005 ==

== ENCOUNTER 2021-12-02 11:24 | Emergency (ER) | payer MEDICARE, BC, SELFPAY ==
[2021-12-02 12:20] VITALS: BP 127/88; PULSE 79; RESP 20; TEMP 36.7; O2SAT 95; BMI 38.0
--- NOTE | 2021-12-02 13:05 | HMH.EDUTC ---
[facility] [place] Impression: Vertigo Otitis media Qualifiers: Otitis media type: unspecified Laterality: right Qualified Code(s): H66.91 - Otitis media, unspecified, right ear Disposition: Home, Self-Care Condition on Discharge: Good Instructions: Vertigo, Middle Ear Infection, DI for Vertigo Additional Instructions: *Monitor Temp, Over the counter Motrin or Tylenol as directed/as needed Tylenol every 4 hours and Motrin every 6 hours (as long as your family doctor has told you that you can take it) for fever or pain. and straight to ER if unable to lower temp less than 101.0 after medication given *Warm salt water gargles may help to soothe the throat *Throat Lozenges *Warm fluids like tea with honey may help to soothe the throat *Sleep elevated *Humidifier/Vaporizer Take medication as prescribed Follow up IMMEDIATELY for new or worsening symptoms or no Noticeable improvement over the next 48-72 hours. 911 for difficulty breathing or swallowing Prescriptions: Meclizine HCl 12.5 mg PO Q8HP PRN #12 tab PRN Reason: Vertigo Transmission Status: Pending to [facility] Amoxicillin [Amoxicillin 875MG Tab] 875 mg PO Q12H #20 tab Transmission Status: Pending to [facility] Referrals: Mely Morales PA [Primary Care Provider] - As needed Time of Disposition: 13:13 Medical Decision Making - Ravindra Inquiry Pt receiving controlled substance: No Ravindra was queried for this patient: No Vital Signs: 12/02/21 12:20 Temperature 98.0 F Temperature Source Oral Pulse Rate [Right Brachial] 79 Respiratory Rate 20 Blood Pressure [Right Arm] 127/88 Blood Pressure Mean [Right Arm] 101 Blood Pressure Source [Right Arm] Automatic Cuff Blood Pressure Position [Right Arm] Sitting 02 Sat by Pulse Oximetry 95 Oxygen Delivery Method Room Air [facility] [place] - General Stated complaint: possible ear infection right ear Time Seen by Provider: 12/02/21 13:05 Mode of Arrival: Ambulatory Source of Information: Patient Limitations: No Limitations Description of Symptoms (Recalled from Triage Doc. by RN): PATIENT C/O PAIN TO RIGHT EAR/NECK AND HEADACHE X 2 DAYS AND DIZZINESS LAST NIGHT HEENT Symptoms (Recalled from RN notes): Yes Resp Symptoms (Recalled from RN notes): No Skin Symptoms (Recalled from RN notes): No MS Symptoms (Recalled from RN notes): No Functional Status (Recalled from RN notes): WNL - History of Present Illness Provider Complaint: Patient state that she has been having pain and pressure and feeling of fullness in her right ear States that last night she noticed if she moved too quickly or bent over she felt like the room was spinning around her and felt dizzy States that this morning she continued to have pain in her right ear and felt dizzy when she would move around so she came in - Related Data Previous Rx's Medication Instructions Recorded atorvastatin 10 mg tablet 10 mg PO HS #30 tab 09/14/21 cariprazine 4.5 mg capsule 4.5 mg PO DAILY #30 cap 11/07/21 semaglutide 7 mg tablet See Rx Instructions .ROUTE 12/01/21 .COMPLEX #30 tab Amoxicillin [Amoxicillin 875MG 875 mg PO Q12H #20 tab 12/02/21 Tab] Meclizine HCl 12.5 mg PO Q8HP PRN #12 tab 12/02/21 Allergies Allergy/AdvReac Type Severity Reaction Status Date / Time prednisone Allergy Mild UPSET Verified 10/10/21 11:05 STOMACH - Worker's Comp Is this a Worker's Comp case?: No [facility] History - Hepatitis A Screen Drug use history?: No High risk sexual behaviors?: No History of sexually transmitted infection?: No Currently employed?: No Childcare worker?: No Do you have indoor plumbing?: Yes Do you have electricity?: Yes Attestation statement:: This patient has been screened for Hepatitis A risk factors. Medical History: Reports:: Anxiety, Depression, Migraine Denies:: Cancer, Diabetes Mellitus Type 1, Diabetes Mellitus Type 2, Internal Pacemaker, MRSA, Seizures Other Medical His
[2021-12-02 13:14] VITALS: BP 127/88; PULSE 79; RESP 20; TEMP 36.7; O2SAT 95
== END 2021-12-02 13:20 | disposition home or self-care (01) ==
PROVIDERS: Emergency Provider Nurse Practitioner; PCP Physician Assistant
DX: H66.91 Otitis media, unspecified, right ear (principal); R42 Dizziness and giddiness; F41.8 Other specified anxiety disorders; Z87.891 Personal history of nicotine dependence
CPT/HCPCS: G0463; 99202

== ENCOUNTER → 2021-12-09 13:32 | Outpatient (CLI) | payer MEDICARE, BC, SELFPAY | PROVIDERS: Visit Provider Nurse Practitioner | DX: U07.1 COVID-19 (principal) | CPT/HCPCS: C9803; U0003; U0005 ==

== ENCOUNTER 2022-01-19 10:44 | Emergency (ER) | payer MEDICARE, BC, SELFPAY ==
[2022-01-19 11:55] VITALS: BP 0/0; PULSE 0; RESP 0; TEMP -17.7; TEMP 0
== END 2022-01-19 11:56 | disposition left against medical advice (07) ==
LOC: UTC 10:46
PROVIDERS: Emergency Provider Nurse Practitioner; PCP Physician Assistant
DX: G25.81 Restless legs syndrome (principal); Z53.21 Procedure and treatment not carried out due to patient leaving prior to being seen by health care provider; F32.A Depression, unspecified; E04.9 Nontoxic goiter, unspecified; Z79.899 Other long term (current) drug therapy; Z88.8 Allergy status to other drugs, medicaments and biological substances

== ENCOUNTER → 2022-09-18 14:47 | Outpatient (CLI) | payer MEDICARE, BC, SELFPAY | PROVIDERS: PCP Student in an Organized Health Care Education/Training Program; Visit Provider Student in an Organized Health Care Education/Training Program | DX: N39.0 Urinary tract infection, site not specified (principal) | CPT/HCPCS: 87086 ==

== ENCOUNTER → 2022-10-10 13:15 | Outpatient (CLI) | payer MEDICARE, BC, SELFPAY ==
[2022-10-10 18:02] LABS: Basophils # 0.1 K/mm3 (0-0.2); Basophils % 1.4 % (0.1-2.0); Eosinophils # 0.3 K/mm3 (0.0-0.4); Eosinophils % 3.1 % (0.1-12.0); Hematocrit 48.3 % (37.0-47.0); Hemoglobin 15.2 g/dL (12.2-16.2); Lymphocytes # 3.3 K/mm3 (0.7-4.5); Lymphocytes % 35.4 % (10-50); Mean Corpuscular HGB Conc 31.5 g/dL (31.8-35.4); Mean Corpuscular Hemoglobin 27.9 pg (27.0-31.2); Mean Corpuscular Volume 88.5 fl (81-99); Mean Platelet Volume 8.6 fl (7.4-10.4); Monocytes # 0.6 K/mm3 (0.1-1.0); Monocytes % 6.1 % (1.7-9.3); Neutrophils # 5.1 K/mm3 (1.8-7.8); Neutrophils % 54.1 % (37.0-80.0); Platelet Count 284 K/mm3 (142-424); Red Blood Count 5.46 M/mm3 (4.20-5.40); Red Cell Distribution Width 13.2 % (11.5-17.5); White Blood Count 9.4 K/mm3 (4.8-10.8)
[2022-10-10 18:06] LABS: Alanine Aminotransferase 119 U/L (12-78); Albumin Level 4.4 g/dl (3.5-5.0); Albumin/Globulin Ratio 1.8 (1.1-1.8); Alkaline Phosphatase 137 U/L (38-126); Aspartate Amino Transferase 84 U/L (14-36); Bilirubin,Total 0.5 mg/dl (0.2-1.3); Blood Urea Nitrogen 9 mg/dl (7-17); Calcium 9.9 mg/dl (8.4-10.2); Carbon Dioxide 27 mmol/L (22.0-30.0); Chloride 96 mmol/L (98-107); Chol/HDL Ratio 4.4 (1-3.5); Cholesterol 161 mg/dl (140-200); Estimated Glomerular Filt Rate 95 ml/min (>60); GFR (African American) 115 ML/MIN (>60); Globulin 2.5 g/dL (1.3-3.2); Glucose 110 mg/dl (74-100); HDL Cholesterol 37 mg/dl (40-60); Sodium 139 mmol/L (136-145); Total Protein,Serum 6.9 g/dl (6.3-8.2); Triglycerides 227 mg/dl (30-150); VLDL Cholesterol 45 mg/dL (0-40)
[2022-10-10 18:16] LABS: Direct LDL Cholesterol 101.14 mg/dL (100-129)
[2022-10-10 18:23] LABS: 25-OH Vitamin D, Total 36.2 ng/mL (30-100)
== END ==
PROVIDERS: PCP Physician Assistant; Visit Provider Physician Assistant
DX: Z00.00 Encounter for general adult medical examination without abnormal findings (principal); R53.83 Other fatigue; K04.7 Periapical abscess without sinus; E66.9 Obesity, unspecified; F32.9 Major depressive disorder, single episode, unspecified; Z68.38 Body mass index [BMI] 38.0-38.9, adult
CPT/HCPCS: 80053; 80061; 82306; 84443; 85025

== ENCOUNTER → 2022-12-01 13:08 | Outpatient (CLI) | payer MEDICARE, BC, SELFPAY ==
--- NOTE | 2022-12-01 13:19 | US_ITS ---
FINAL REPORT CLINICAL HISTORY: right sided enlarged COMPARISON: 06/24/2019 FINDINGS: Sonographic images of the thyroid were obtained. The thyroid is normal in size although minimally increased in size since prior. There is a hypoechoic solid nodule in the right lobe of the thyroid measuring 5 mm, unchanged. No new mass or nodule is identified. IMPRESSION: No evidence of thyromegaly Stable right thyroid nodule, consider benign. Findings consistent with TI-RADS category 4. No additional follow-up is needed given long-term stability and appearance. Reviewed, Interpreted and Dictated by Julián Rodas MD Transcribed by Debi Benitez Authenticated and [facility]
[2022-12-01 15:39] LABS: Free T4 (Free Thyroxine) 0.85 ng/dl (0.78-2.19)
[2022-12-01 15:52] LABS: Thyroid Stimulating Hormone 0.34 uIU/mL (0.465-4.68)
== END ==
PROVIDERS: PCP Physician Assistant; Visit Provider Otolaryngology
DX: E04.9 Nontoxic goiter, unspecified (principal); F32.9 Major depressive disorder, single episode, unspecified
CPT/HCPCS: 36415; 76536; 84439; 84443

== ENCOUNTER → 2023-01-10 13:46 | Outpatient (CLI) | payer MEDICARE, BC, SELFPAY ==
[2023-01-10 15:11] LABS: Anion Gap 10.4 mEq/L (5-15); Blood Urea Nitrogen 12 mg/dl (7-17); Calcium 9.3 mg/dl (8.4-10.2); Carbon Dioxide 26 mmol/L (22.0-30.0); Chloride 105 mmol/L (98-107); Estimated Glomerular Filt Rate 81 ml/min (>60); GFR (African American) 98 ML/MIN (>60); Glucose 93 mg/dl (74-100); Magnesium 2.1 mg/dl (1.6-2.3); Potassium 4.4 mmoL/L (3.5-5.1); Sodium 137 mmol/L (136-145)
== END ==
PROVIDERS: PCP Physician Assistant; Visit Provider Physician Assistant
DX: M62.838 Other muscle spasm (principal)
CPT/HCPCS: 36415; 80048; 83735

== ENCOUNTER 2023-02-06 10:00 | Outpatient (RCR) | payer MEDICARE, BC, SELFPAY ==
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
== END 2023-02-06 10:05 | disposition home or self-care (01) ==
LOC: PT 10:00
PROVIDERS: PCP Physician Assistant; Visit Provider Otolaryngology
DX: M26.601 Right temporomandibular joint disorder, unspecified (principal)
CPT/HCPCS: 97110; 97140; 97163

== ENCOUNTER 2023-02-22 14:00 | Outpatient (RCR) | payer MEDICARE, BC, SELFPAY ==
--- NOTE | 2023-01-17 11:34 | HMH.PTOPEV ---
PT Outpatient Evaluation Rehab PT Outpatient Evaluation Start: 01/17/23 11:17 Freq: Status: Active Protocol: Document 01/17/23 11:17 CRISTAL (Rec: 01/17/23 11:34 CRISTLA [id number]) E-signed By Zeeshan Naylor, PT Outpatient Therapy Subjective History Subjective History Pt reports h/o chronic B/L LE weakness and pain for 'a couple years at least.' Pt reports 'it's my fault, all I do is eat and sleep.' Pt reports prolonged standing and walking for ~ 30minutes increases pain and fatigue in B/L precipitating seated rest period. Pt reports pain in LE' s is generally around the hips . Chief Complaint Pain,Weakness Symptom Type Ache,Dull Symptoms Relieved By Rest/Positioning Symptoms Aggravated By Standing,Physical Activity, Walking Prior Functional Limitations Housework,Standing,Walking Current Functional Limitations Housework,Standing,Walking Symptom Description Constant but Variable Level of pain today (0-10) 5 Pain scale - at its best (0-10) 5 Pain scale - at its worst (0-10) 10 Hip/Knee Eval Gait Observation General Gait Pattern Observation Antalgic Gait Assistive Device Assistive Devices None / NA Palpation Tenderness bilateral Knee Palpation Overall Comment 2-3/4 B/L HIPS (LATERAL ASPECT ) Hip Palpation Findings Tenderness MMT Hip Flexion Strength Grade 4 Good Hip Abduction Strength Grade 4- Good- Hip Adduction Strength Grade 4- Good- Hip Extension Strength Grade 4- Good- Gluteus Yusuf Strength Grade 4- Good- Hip External Rotation Strength Grade 4 Good Hip Internal Rotation Strength Grade 4 Good Knee Extension Strength Grade 5 Normal Knee Flexion Strength Grade 5 Normal ROM Knee Flexion Active Range of Motion ( 0-125 degrees) Outpatient Therapy Assessment Impairments Problems/Impairmments Palpation Tenderness,Impaired Range of Motion,Impaired Strength,Impaired Gait Pattern ,Impaired Walking,Impaired Standing,Impaired Household Care,Subjective C/O Pain, Impaired Self Care/Self Management Prognosis Rehab Potential Good Clinical Impression Consistent with Diagnosis Yes [facility]
== END 2023-02-22 14:05 | disposition home or self-care (01) ==
LOC: PT 14:00
PROVIDERS: PCP Physician Assistant; Visit Provider Physician Assistant
DX: M62.81 Muscle weakness (generalized) (principal)
CPT/HCPCS: 97110; 97163; 97530

== ENCOUNTER → 2023-02-26 09:51 | Outpatient (CLI) | payer MEDICARE, BC, SELFPAY ==
[2023-02-26 15:17] LABS: Alanine Aminotransferase 172 U/L (12-78); Albumin Level 4.5 g/dl (3.5-5.0); Albumin/Globulin Ratio 1.6 (1.1-1.8); Alkaline Phosphatase 121 U/L (38-126); Anion Gap 9.4 mEq/L (5-15); Aspartate Amino Transferase 86 U/L (14-36); Bilirubin,Total 0.5 mg/dl (0.2-1.3); Blood Urea Nitrogen 14 mg/dl (7-17); Calcium 8.9 mg/dl (8.4-10.2); Carbon Dioxide 24 mmol/L (22.0-30.0); Chloride 106 mmol/L (98-107); Chol/HDL Ratio 4.3 (1-3.5); Cholesterol 150 mg/dl (140-200); Estimated Glomerular Filt Rate 112 ml/min (>60); GFR (African American) 136 ML/MIN (>60); Globulin 2.8 g/dL (1.3-3.2); Glucose 157 mg/dl (74-100); HDL Cholesterol 35 mg/dl (40-60); Potassium 4.4 mmoL/L (3.5-5.1); Sodium 135 mmol/L (136-145); Total Protein,Serum 7.3 g/dl (6.3-8.2); Triglycerides 191 mg/dl (30-150); VLDL Cholesterol 38 mg/dL (0-40)
[2023-02-26 15:19] LABS: Basophils # 0.1 K/mm3 (0-0.2); Basophils % 0.7 % (0.1-2.0); Eosinophils # 0.3 K/mm3 (0.0-0.4); Hematocrit 52.1 % (37.0-47.0); Hemoglobin 16.8 g/dL (12.2-16.2); Lymphocytes # 2.9 K/mm3 (0.7-4.5); Lymphocytes % 27.1 % (10-50); Mean Corpuscular HGB Conc 32.2 g/dL (31.8-35.4); Mean Corpuscular Hemoglobin 28.7 pg (27.0-31.2); Mean Platelet Volume 10.4 fl (7.4-10.4); Monocytes # 0.9 K/mm3 (0.1-1.0); Neutrophils # 6.6 K/mm3 (1.8-7.8); Neutrophils % 61.2 % (37.0-80.0); Platelet Count 227 K/mm3 (142-424); Red Blood Count 5.85 M/mm3 (4.20-5.40); Red Cell Distribution Width 13.6 % (11.5-17.5); White Blood Count 10.8 K/mm3 (4.8-10.8)
[2023-02-26 15:28] LABS: Direct LDL Cholesterol 91.52 mg/dL (100-129)
[2023-02-26 15:30] LABS: NT Pro Brain Natriuretic Pep. < 11.1 pg/mL (0-125)
[2023-02-26 15:33] LABS: Hemoglobin A1C 6.4 % (4.0-6.0)
[2023-02-26 15:36] LABS: 25-OH Vitamin D, Total 40.6 ng/mL (30-100)
[2023-02-26 15:48] LABS: Thyroid Stimulating Hormone 1.62 uIU/mL (0.465-4.68)
== END ==
PROVIDERS: PCP Physician Assistant; Visit Provider Physician Assistant
DX: E11.9 Type 2 diabetes mellitus without complications (principal); R06.00 Dyspnea, unspecified; E66.9 Obesity, unspecified; E55.9 Vitamin D deficiency, unspecified
CPT/HCPCS: 80053; 80061; 82306; 83036; 83880; 84443; 85025

== ENCOUNTER → 2023-03-07 13:20 | Outpatient (CLI) | payer MEDICARE, BC, SELFPAY | PROVIDERS: PCP Physician Assistant; Visit Provider Physician Assistant | DX: R06.00 Dyspnea, unspecified (principal) | CPT/HCPCS: 93306 ==

== ENCOUNTER → 2023-05-10 13:44 | Outpatient (CLI) | payer MEDICARE, BC, SELFPAY ==
[2023-05-10 12:41] LABS: Basophils # 0.1 K/mm3 (0-0.2); Basophils % 0.7 % (0.1-2.0); Eosinophils # 0.4 K/mm3 (0.0-0.4); Eosinophils % 3.9 % (0.1-12.0); Hematocrit 47.7 % (37.0-47.0); Hemoglobin 15.5 g/dL (12.2-16.2); Lymphocytes # 2.9 K/mm3 (0.7-4.5); Lymphocytes % 31.8 % (10-50); Mean Corpuscular HGB Conc 32.4 g/dL (31.8-35.4); Mean Corpuscular Hemoglobin 28.3 pg (27.0-31.2); Mean Corpuscular Volume 87.3 fl (81-99); Mean Platelet Volume 8.2 fl (7.4-10.4); Monocytes # 0.6 K/mm3 (0.1-1.0); Monocytes % 6.6 % (1.7-9.3); Neutrophils # 5.1 K/mm3 (1.8-7.8); Platelet Count 269 K/mm3 (142-424); Red Blood Count 5.47 M/mm3 (4.20-5.40); Red Cell Distribution Width 13.3 % (11.5-17.5)
[2023-05-10 12:47] LABS: Alanine Aminotransferase 95 U/L (12-78); Albumin Level 4.4 g/dl (3.5-5.0); Albumin/Globulin Ratio 1.8 (1.1-1.8); Alkaline Phosphatase 104 U/L (38-126); Anion Gap 16.1 mEq/L (5-15); Aspartate Amino Transferase 60 U/L (14-36); Bilirubin,Total 0.6 mg/dl (0.2-1.3); Blood Urea Nitrogen 9 mg/dl (7-17); Carbon Dioxide 24 mmol/L (22.0-30.0); Chloride 105 mmol/L (98-107); Chol/HDL Ratio 3.5 (1-3.5); Cholesterol 117 mg/dl (140-200); Estimated Glomerular Filt Rate 81 ml/min (>60); GFR (African American) 98 ML/MIN (>60); Globulin 2.5 g/dL (1.3-3.2); Glucose 121 mg/dl (74-100); HDL Cholesterol 33 mg/dl (40-60); Potassium 4.1 mmoL/L (3.5-5.1); Sodium 141 mmol/L (136-145); Total Protein,Serum 6.9 g/dl (6.3-8.2); Triglycerides 131 mg/dl (30-150); VLDL Cholesterol 26 mg/dL (0-40)
[2023-05-10 12:57] LABS: Direct LDL Cholesterol 69.69 mg/dL (100-129)
[2023-05-10 13:21] LABS: Thyroid Stimulating Hormone 1.23 uIU/mL (0.465-4.68)
[2023-05-12 08:17] LABS: HBsAg Screen Negative (Negative); HCV Ab Non Reactive (Non Reactive); Hep A Ab, IGM Negative (Negative); Hep B Core Ab, IgM Negative (Negative)
== END ==
PROVIDERS: PCP Physician Assistant; Visit Provider Physician Assistant
DX: E11.9 Type 2 diabetes mellitus without complications (principal); R63.5 Abnormal weight gain; R74.8 Abnormal levels of other serum enzymes; Z79.84 Long term (current) use of oral hypoglycemic drugs
CPT/HCPCS: 80053; 80061; 80074; 84443; 85025

== ENCOUNTER → 2023-06-05 09:20 | Outpatient (CLI) | payer MEDICARE, BC, SELFPAY ==
--- NOTE | 2023-06-05 09:20 | US_ITS ---
FINAL REPORT TECHNIQUE: Multiple transverse and longitudinal images CLINICAL HISTORY: Elevated liver enzymes FINDINGS: The gallbladder shows no wall thickening, distention or stone disease. No biliary ductal dilatation is appreciated. No fluid collections are seen. Limited portions of the right liver are fatty infiltrated. Limited portions of the right kidney are unremarkable. IMPRESSION: 1. No evidence of cholelithiasis 2. Fatty liver. Reviewed, Interpreted and Dictated by Julián Rodas MD Transcribed by Fabiano Rizo Authenticated and [facility]
== END ==
PROVIDERS: PCP Physician Assistant; Visit Provider Physician Assistant
DX: R74.8 Abnormal levels of other serum enzymes (principal)
CPT/HCPCS: 76705

== ENCOUNTER → 2023-11-08 22:22 | Outpatient (CLI) | payer MEDICARE, BC, SELFPAY ==
[2023-11-08 16:53] LABS: Microalbumin/Creatinine Ratio 13.7
[2023-11-08 16:54] LABS: Creatinine,Urine Random 259 mg/dL (Not Estab.)
== END ==
LOC: LAB.DROPOF 22:27
PROVIDERS: PCP Internal Medicine; Visit Provider Internal Medicine
DX: R73.03 Prediabetes (principal)
CPT/HCPCS: 82043; 82570

== ENCOUNTER 2023-12-20 19:08 | Outpatient (CLI) | payer MEDICARE, BC, SELFPAY | END 2023-12-20 23:59 | LOC: LAB.DROPOF 19:08 | PROVIDERS: PCP Student in an Organized Health Care Education/Training Program; Visit Provider Student in an Organized Health Care Education/Training Program | DX: R50.9 Fever, unspecified (principal); R05.8 Other specified cough; H92.01 Otalgia, right ear | CPT/HCPCS: 87635 ==

== ENCOUNTER 2024-01-04 10:11 | Outpatient (CLI) | payer MEDICARE, BC, SELFPAY ==
--- NOTE | 2024-01-04 10:19 | XR_ITS ---
FINAL REPORT TECHNIQUE: Chest PA & Lateral CLINICAL HISTORY: left sided rib pain former smoker of 15 yrs FINDINGS: 2 views of the chest were performed. The heart size is normal. The mediastinum is within normal limits. There is no acute cardiopulmonary process. There are no pleural effusions. There is no pneumothorax. The bony thorax appears intact. IMPRESSION: No acute cardiopulmonary process. Reviewed, Interpreted and Dictated by Francisco Peace MD Transcribed by Sammie Hwang Authenticated and [facility]
[2024-01-04 17:47] LABS: Basophils % 0.5 % (0.1-2.0); Eosinophils # 0.3 K/mm3 (0.0-0.4); Eosinophils % 3.6 % (0.1-12.0); Hematocrit 49.6 % (37.0-47.0); Hemoglobin 15.6 g/dL (12.2-16.2); Lymphocytes # 2.8 K/mm3 (0.7-4.5); Lymphocytes % 32.3 % (10-50); Mean Corpuscular HGB Conc 31.5 g/dL (31.8-35.4); Mean Corpuscular Hemoglobin 29.2 pg (27.0-31.2); Mean Corpuscular Volume 92.7 fl (81-99); Mean Platelet Volume 9.1 fl (7.4-10.4); Monocytes # 0.8 K/mm3 (0.1-1.0); Monocytes % 8.8 % (1.7-9.3); Neutrophils # 4.8 K/mm3 (1.8-7.8); Neutrophils % 54.7 % (37.0-80.0); Platelet Count 280 K/mm3 (142-424); Red Blood Count 5.35 M/mm3 (4.20-5.40); Red Cell Distribution Width 13.5 % (11.5-17.5); White Blood Count 8.8 K/mm3 (4.8-10.8)
[2024-01-04 18:28] LABS: Alanine Aminotransferase 85 U/L (12-78); Albumin Level 4.1 g/dl (3.5-5.0); Albumin/Globulin Ratio 1.6 (1.1-1.8); Alkaline Phosphatase 99 U/L (38-126); Anion Gap 11.2 mEq/L (5-15); Aspartate Amino Transferase 49 U/L (14-36); Bilirubin,Total 0.5 mg/dl (0.2-1.3); Blood Urea Nitrogen 9 mg/dl (7-17); Calcium 9.2 mg/dl (8.4-10.2); Carbon Dioxide 27 mmol/L (22.0-30.0); Chloride 106 mmol/L (98-107); Estimated Glomerular Filt Rate 94 ml/min (>60); GFR (African American) 113 ML/MIN (>60); Globulin 2.5 g/dL (1.3-3.2); Glucose 84 mg/dl (74-100); Potassium 4.2 mmoL/L (3.5-5.1); Sodium 140 mmol/L (136-145); Total Protein,Serum 6.6 g/dl (6.3-8.2)
[2024-01-04 18:33] LABS: C-Reactive Protein 8.1 mg/L (0-4); Erythrocyte Sedimentation Rate 5 mm/hr (0-20)
[2024-01-04 18:44] LABS: Free T4 (Free Thyroxine) 0.96 ng/dl (0.78-2.19)
[2024-01-04 18:57] LABS: Thyroid Stimulating Hormone 1.62 uIU/mL (0.465-4.68)
[2024-01-04 19:07] LABS: Hemoglobin A1C 5.2 % (4.0-6.0)
[2024-01-07 15:11] LABS: Anti-Centromere B Antibodies <0.2 AI (0.0-0.9); Anti-DNA (DS) Ab Qn <1 IU/mL (0-9); Anti-Jo-1 <0.2 AI (0.0-0.9); Anti-Smith Antibody <0.2 AI (0.0-0.9); Antichromatin Antibodies <0.2 AI (0.0-0.9); Antiscleroderma-70 Antibodies <0.2 AI (0.0-0.9); RNP Antibodies 0.2 AI (0.0-0.9); Sjogren's Anti-SS-A <0.2 AI (0.0-0.9); Sjogren's Anti-SS-B <0.2 AI (0.0-0.9)
== END 2024-01-04 23:59 ==
LOC: RAD 10:13
PROVIDERS: PCP Internal Medicine; Visit Provider Student in an Organized Health Care Education/Training Program
DX: R07.81 Pleurodynia (principal); E04.9 Nontoxic goiter, unspecified; R21 Rash and other nonspecific skin eruption; E66.9 Obesity, unspecified; E11.9 Type 2 diabetes mellitus without complications; Z68.41 Body mass index [BMI] 40.0-44.9, adult
CPT/HCPCS: 71046; 80053; 83036; 84439; 84443; 85025; 85651; 86140; 86225; 86235

== ENCOUNTER 2024-01-04 20:10 | Outpatient (CLI) | payer MEDICARE, BC, SELFPAY | END 2024-01-04 23:59 | LOC: LAB.DROPOF 20:10 | PROVIDERS: PCP Student in an Organized Health Care Education/Training Program; Visit Provider Student in an Organized Health Care Education/Training Program | DX: R07.81 Pleurodynia (principal) ==

== ENCOUNTER 2024-01-08 09:40 | Outpatient (CLI) | payer MEDICARE, BC, SELFPAY ==
--- NOTE | 2024-01-08 09:41 | US_ITS ---
FINAL REPORT TECHNIQUE: Sonographic images of the abdomen were obtained in all four quadrants. CLINICAL HISTORY: LUQ pain COMPARISON: None FINDINGS: LIVER: There is fatty infiltration of the liver.. No focal hepatic lesion or intrahepatic biliary dilatation. GALLBLADDER: No gallstones. No pericholecystic fluid collection or gallbladder wall thickening. The common duct measures 3 mm. This is within normal limits for age. PANCREAS: Unremarkable. RIGHT KIDNEY: 11.2 cm. No hydronephrosis, mass or stone. LEFT KIDNEY: 11.6 cm. No hydronephrosis, mass or stone. SPLEEN: 14 cm, consistent with mild splenomegaly. No focal splenic lesion. AORTA/IVC: No abdominal aortic aneurysm. Visualized IVC within normal limits. OTHER: No ascites. IMPRESSION: Fatty infiltration of the liver. Mild splenomegaly. Reviewed, Interpreted and Dictated by Dary Samaniego MD Transcribed by Tisha Hoyos Authenticated and [facility]
== END 2024-01-08 23:59 ==
LOC: RAD 09:41
PROVIDERS: PCP Internal Medicine; Visit Provider Student in an Organized Health Care Education/Training Program
DX: R10.12 Left upper quadrant pain (principal)
CPT/HCPCS: 76700

== ENCOUNTER 2024-01-12 12:01 | Emergency (ER) | payer MEDICARE, BC, SELFPAY ==
[2024-01-12 12:29] VITALS: BP 132/80; PULSE 82; RESP 16; TEMP 36.7; O2SAT 98; BMI 40.3
--- NOTE | 2024-01-12 13:00 | CT_ITS ---
PROCEDURE INFORMATION: Exam: CT Abdomen And Pelvis With Contrast Exam date and time: 01/12/2024 2:16 PM Age: 38 years old Clinical indication: Abdominal pain; Localized; Left upper quadrant (luq); Additional info: Worsening luq pain, splenomegaly TECHNIQUE: Imaging protocol: Computed tomography of the abdomen and pelvis with contrast. Radiation optimization: All CT scans at this facility use at least one of these dose optimization techniques: automated exposure control; mA and/or kV adjustment per patient size (includes targeted exams where dose is matched to clinical indication); or iterative reconstruction. Contrast material: ISOVUE; Contrast volume: 75 ml; Contrast route: IV; COMPARISON: No relevant prior studies available. FINDINGS: Limitations: Photon starvation artifact related to patient's arm positioning severely degrades images and limits sensitivity of exam. Liver: Fatty liver. Gallbladder and bile ducts: Unremarkable. Pancreas: Unremarkable. Spleen: No splenomegaly. Spleen measures 11.0 cm in craniocaudal axis. No evidence of splenic laceration. Adrenal glands: Unremarkable. Kidneys and ureters: No renal or ureteral stones. No hydronephrosis. Stomach and bowel: No evidence of bowel obstruction or acute inflammatory changes in the gastrointestinal tract. Appendix: Appendix is visualized and is normal. Intraperitoneal space: No free fluid. No pneumoperitoneum. Vasculature: Unremarkable. Lymph nodes: Unremarkable. Urinary bladder: Unremarkable. Reproductive: Unremarkable. Bones/joints: No evidence of acute osseous abnormality. Soft tissues: Unremarkable. IMPRESSION: 1. No acute findings in the abdomen or pelvis. No splenomegaly. 2. Fatty liver.
--- NOTE | 2024-01-12 13:02 | HMH.EDGENADL ---
Discharge Plan Disposition Patient Disposition: Home, Self-Care Condition: Good Prescriptions Prescriptions: New pantoprazole 40 mg tablet,delayed release (DR/EC) 40 mg PO DAILY Qty: 30 0RF No Action celecoxib [Celebrex] 200 mg capsule 200 mg PO DAILY Qty: 30 2RF cyclobenzaprine 10 mg tablet 10 mg PO TID PRN (Reason: muscle spasm) 30 Days Qty: 90 3RF levocetirizine 5 mg tablet 5 mg PO DAILY Patient Comments: TAKE ONE TABLET BY MOUTH EVERY DAY escitalopram oxalate [Lexapro] 20 mg tablet 20 mg PO DAILY Qty: 30 2RF sertraline [Zoloft] 25 mg tablet 25 mg PO DAILY Qty: 30 2RF atorvastatin 10 mg tablet See Rx Instructions .ROUTE .COMPLEX Qty: 90 3RF Dose Instruction: TAKE ONE TABLET BY MOUTH AT BEDTIME Rx Instructions: TAKE ONE TABLET BY MOUTH AT BEDTIME alcohol swabs [Alcohol Pads] Pads, Medicated 1 pad topical BID Qty: 200 3RF (DME) lancets [Accu-Chek Softclix Lancets] Misc See Rx Instructions .Route Qty: 200 3RF Rx Instructions: TEST GLUCOSE QD (DME) blood-glucose meter [Advanced Glucose Meter] Misc See Rx Instructions .ROUTE .MEDSUPPLY Qty: 1 0RF Rx Instructions: TEST GLUCOSE QD (DME) blood sugar diagnostic Strip See Rx Instructions .ROUTE .MEDSUPPLY Qty: 1 3RF Rx Instructions: TEST GLUCOSE (DME) Accu-Chek Guide test strips Strip See Rx Instructions .Route Qty: 100 0RF Rx Instructions: test glucose QD Referrals Follow up/Referrals: Ayaan Heller DO [Primary Care Provider] - See instructions Activity Restrictions/Add. Instructions Additional Instructions/Restrictions: You were evaluated in the emergency department today. At this time, your labs and CT scan are reassuring. You do not have enlargement of your spleen on CT scan here today. Please machine pecan picker your prescription and take as prescribed. We are giving you this because it treats excess stomach acid, which could potentially be a cause of your symptoms. Follow-up with your primary care provider over the next 3 days. Return to the emergency department for new or worsening symptoms. Clinical Impressions Clinical Impression: Left upper quadrant abdominal pain Instructions Patient Instructions: DI for Acute Abdominal Pain Discharge ED Provider: Angi Albrihgt General Adult HPI General Chief complaint: Abdominal Pain Stated complaint: side pain Time Seen by Provider: 01/12/24 12:09 Mode of Arrival: Ambulatory Source of Information: Patient Limitations: No Limitations Description of Symptoms (Recalled from ER Triage Doc. by RN): pt c/o LUQ pain that is 10/10, sharp and tight in nature. ongoing x2wks pt reports she was sent for an abd US and they found her spleen was enlarged. Tressa Piper APRN told her if the pain got worse to come into the ER and get a CT and tested for mono. pt denies N/V/D. History of Present Illness HPI narrative: This patient is a 38-year-old female with a history of obesity, hyperlipidemia, prediabetes, fatty liver disease, and bipolar 2 disorder presenting to the emergency department for evaluation with concern for worsening left upper quadrant abdominal pain that has been going on for the last 2 weeks. She states that initially last month she had the flu followed by bronchitis, and then she developed left upper quadrant abdominal pain. She has seen her primary care provider for this and had outpatient ultrasound, which demonstrated splenomegaly. She was told to go to the ER if her pain got worse, she states that it is feeling much worse today. She states that it is now radiating around to her back/left flank. No other concerns noted at this time. She took no medications prior to arrival. Related Data Home Medications Medication Instructions Recorded Confirmed levocetirizine 5 mg tablet 5 mg PO DAILY 12/06/23 01/11/24 Previous Rx's Medication Instructions Recorded atorvastatin 10 mg tablet See Rx Instructions .Route 12/27/22 .COMPLEX #90 tabs celecoxib 200 mg capsule (Celebrex) 200 mg PO DAILY #30 caps 06/06/23 cyclobenzaprine 10 mg tablet 10 mg PO TID PRN muscle spasm 30 11/08/23 days #90 tabs alcohol swabs (Alcohol Pads) 1 pad topical BID #200 ea 11/22/23 blood sugar diagnostic #1 ea 11/23/23 blood-glucose meter (Advanced #1 ea 11/23/23 Glucose Meter) lancets (Accu-Chek Softclix #200 ea 11/23/23 Lancets) blood sugar diagnostic (Accu-Chek #100 ea 11/27/23 Guide test strips) escitalopram oxalate 20 mg tablet 20 mg PO DAILY #30 tabs 12/06/23 (Lexapro) sertraline 25 mg tablet (Zoloft) 25 mg PO DAILY #30 tabs 12/11/23 pantoprazole 40 mg tablet,delayed 40 mg PO DAILY #30 tabs 01/12/24 release Allergies Allergy/AdvReac Type Severity Reaction Status Date / Time prednisone Allergy Mild UPSET Verified 01/12/24 12:43 STOMACH PFSH PFS Disclaimer: The information contained in this section may have been updated after the patient was seen, as this information can be updated by other users. Medical History Acute effusion of right ear Allergic rhinitis Back Pain Bipolar II disorder Chronic right ear pain Depression DUB (dysfunctional uterine bleeding) Elevated LFTs Fatty liver Hypoglycemia Irregular menstrual cycle Pelvic pain Restless legs syndrome Right ear pain SIRS (systemic inflammatory response syndrome) Thyroid enlarged TMJ dysfunction Weight gain Surgical History History of section History of tubal ligation S/P endometrial ablation Family History Other No significant family history Social History Smoking Status: Never smoker second hand exposure: No alcohol intake: former substance use type: former substance user, marijuana and methamphetamine current occupational status: unemployed Travel in the last 8 weeks: [place] household members: family housing: house number of children: 2 current occupational exposures/hazards: No caffeine: Yes ROS Obtained: Yes All systems reviewed & no additional complaints except as documented Physical Exam General General appearance: alert, in no apparent distress and obese Head Head exam: atraumatic and normocephalic Eye Eye exam: Present normal appearance, PERRL and EOMI ENT ENT exam: Present normal exam, normal oropharynx, mucous membranes moist and normal external ear exam Neck Neck exam: Present normal inspection, full ROM and trachea midline; Absent tenderness Chest Chest inspection: Present normal inspection and symmetric chest wall rise; Absent tenderness Respiratory Respiratory exam: Present normal lung sounds bilaterally; Absent respiratory distress, wheezes, stridor or accessory muscle use Cardiovascular Cardiovascular exam: Present regular rate and normal rhythm Abdominal Exam Abdominal exam: Present soft and tenderness (LUQ); Absent distention, guarding, rebound or rigidity Extremities Exam Extremities exam: Present normal inspection, full ROM and normal capillary refill; Absent tenderness or edema Back Exam Back exam: Present normal inspection and full ROM; Absent tenderness Neurological Exam Neurological exam: Present alert, oriented X3, CN II-XII intact and normal gait; Absent motor sensory deficit Psychiatric Psychiatric exam: Present normal affect and normal mood Skin Skin exam: Present warm and dry Medical Decision Making Medical Records Medical records reviewed: Yes I reviewed the patient's medical records. Ravindra Inquiry Pt receiving controlled substance: No Vital Signs: 01/12/24 12:29 01/12/24 13:11 01/12/24 15:12 Temperature 98.1 F 97.9 F Temperature Source Oral Oral Pulse Rate 83 66 Pulse Rate [Left] 82 Respiratory Rate 16 15 Blood Pressure 117/69 113/66 Blood Pressure [Right Arm] 132/80 Blood Pressure Mean [Right Arm] 97 Blood Pressure Source Automatic Cuff Blood Pressure Source [Right Arm] Automatic Cuff Blood Pressure Position [Right Arm] Sitting 02 Sat by Pulse Oximetry 98 96 Oxygen Delivery Method Room Air Room Air Room Air Lab Data Lab results reviewed: Yes I reviewed the patient's lab results. Lab Results 01/12/24 12:24: WBC 8.7, RBC 5.22, Hgb 15.7, Hct 47.4 H, MCV 90.7, MCH 30.1, MCHC 33.2, RDW 13.7, Plt Count 249, MPV 7.4, Neut % (Auto) 51.9, Lymph % (Auto) 36.1, [place] % (Auto) 7.5, Eos % (Auto) 3.1, Baso % (Auto) 1.4, Neut # (Auto) 4.5, Lymph # (Auto) 3.2, [place] # (Auto) 0.7, Eos # (Auto) 0.3, Baso # (Auto) 0.1, Sodium 137, Potassium 3.8, Chloride 103, Carbon Dioxide 30, Anion Gap 7.8, BUN 9, Creatinine 0.80, Estimated Creat Clear 171, Estimated GFR 80, Est GFR ( Amer) 97, Glucose 104 H, Calcium 9.3, Total Bilirubin 0.8, AST 86 H, ALT 127 H, Alkaline Phosphatase 101, Total Protein 7.5, Albumin 4.4, Globulin 3.1, Albumin/Globulin Ratio 1.4, Lipase 67, Serum HCG, Qual Negative, Monoscreen Negative 01/12/24 13:28: Urine Color Yellow, Urine Appearance Clear, Urine pH 6.5, Ur Specific Adrian 1.025, Urine Protein Negative, Urine Glucose (UA) Negative, Urine Ketones Negative, Urine Blood Negative, Urine Nitrate Negative, Urine Bilirubin Negative, Urine Urobilinogen 0.2, Ur Leukocyte Esterase Negative, Urine RBC None, Urine WBC None, Ur Squamous Epith Cells Occasional, Urine Bacteria None 01/12/24 12:24 01/12/24 12:24 Orders (Tests/Meds): ED MEDICATIONS Discontinued Medications Generic Name Dose Route Start Last Admin Trade Name Freq PRN Reason Stop Dose Admin Acetaminophen 1,000 mg 01/12/24 13:01 01/12/24 13:12 Acetaminophen 500mg Tab PO 01/12/24 13:02 1,000 mg ONCE ONE Administration Iopamidol 75 ml 01/12/24 14:21 01/12/24 14:23 Iopamidol-370 (76%);100ml Bottle IV 01/12/24 14:22 75 ml ONCE ONE Administration Ketorolac Tromethamine 15 mg 01/12/24 13:01 01/12/24 13:12 Ketorolac 30mg/Ml Vial IV 01/12/24 13:02 15 mg ONCE ONE Administration Sodium Chloride 10 ml 01/12/24 14:21 01/12/24 14:23 Sodium Chloride 0.9% 10ml Syr (Rad Only) IV 02/11/24 14:20 10 ml NEEDED PRN Administration Maintain IV Site ORDERS Category Date Time Status CT abdomen pelvis w con Stat Cat Scan 01/12/24 13:00 Completed CMV Quant DNA PCR (Plasma) Stat Lab 01/12/24 13:50 Received Complete Blood Count Auto Diff Stat Lab 01/12/24 12:24 Completed Comprehensive Metabolic Panel Stat Lab 01/12/24 12:24 Completed Cytomegalovirus (CMV) Ab, IgM Stat Lab 01/12/24 13:50 Received EBV Acute Infection Antibodies Stat Lab 01/12/24 13:50 Received HCG Qualitative, Serum Stat Lab 01/12/24 12:24 Completed Lipase Stat Lab 01/12/24 12:24 Completed Monoscreen (Rapid) Stat Lab 01/12/24 12:24 Completed Urinalysis and Microscopic Stat Lab 01/12/24 13:28 Completed Medical Decision Narrative: In summary, this patient is a 38-year-old female presenting to the Emergency Department for evaluation of left upper quadrant abdominal pain in the setting of recently diagnosed splenomegaly. Differential diagnoses considered include but are not limited to splenomegaly, splenic rupture, gastritis, peptic ulcer disease, colitis. Ruling out the most morbid conditions drove assessment. Workup included CBC, CMP, lipase, mono testing, urinalysis, and CT abdomen pelvis with IV contrast. She was given a bolus of IV fluids as well as IV Toradol and oral Tylenol for symptomatic improvement. I independently interpreted CT scan prior to the radiologist read and noted no significant splenomegaly and no other acutely concerning process. Please see their read for final interpretation. Labs were obtained that demonstrated no acutely concerning abnormalities. On reassessment, the patient is resting comfortably. Abdominal exam is benign. She states she is feeling fine. Given reassuring workup and exam, feel that she is appropriate for discharge. She was started on a PPI as she could potentially have gastritis as a cause of her symptoms. Strict and precautions and instructions for close patient follow-up were given. Critical Care Critical Care Time Critical Care Time: No
[2024-01-12 13:08] LABS: Basophils # 0.1 K/mm3 (0-0.2); Basophils % 1.4 % (0.1-2.0); Eosinophils # 0.3 K/mm3 (0.0-0.4); Eosinophils % 3.1 % (0.1-12.0); Hematocrit 47.4 % (37.0-47.0); Hemoglobin 15.7 g/dL (12.2-16.2); Lymphocytes # 3.2 K/mm3 (0.7-4.5); Lymphocytes % 36.1 % (10-50); Mean Corpuscular HGB Conc 33.2 g/dL (31.8-35.4); Mean Corpuscular Hemoglobin 30.1 pg (27.0-31.2); Mean Corpuscular Volume 90.7 fl (81-99); Mean Platelet Volume 7.4 fl (7.4-10.4); Monocytes # 0.7 K/mm3 (0.1-1.0); Monocytes % 7.5 % (1.7-9.3); Neutrophils # 4.5 K/mm3 (1.8-7.8); Neutrophils % 51.9 % (37.0-80.0); Platelet Count 249 K/mm3 (142-424); Red Blood Count 5.22 M/mm3 (4.20-5.40); Red Cell Distribution Width 13.7 % (11.5-17.5); White Blood Count 8.7 K/mm3 (4.8-10.8)
[2024-01-12 13:10] LABS: Chloride 103 mmol/L (98-107); Potassium 3.8 mmoL/L (3.5-5.1); Sodium 137 mmol/L (136-145)
[2024-01-12 13:11] VITALS: BP 117/69; PULSE 83; O2SAT 96
[2024-01-12] MEDS: ACETAMINOPHEN 500MG TAB 1000 MG PO (13:12)
[2024-01-12] MEDS: KETOROLAC 30MG/ML VIAL 15 MG IV (13:12)
[2024-01-12 13:13] LABS: Alanine Aminotransferase 127 U/L (12-78); Albumin Level 4.4 g/dl (3.5-5.0); Albumin/Globulin Ratio 1.4 (1.1-1.8); Alkaline Phosphatase 101 U/L (38-126); Anion Gap 7.8 mEq/L (5-15); Aspartate Amino Transferase 86 U/L (14-36); Bilirubin,Total 0.8 mg/dl (0.2-1.3); Blood Urea Nitrogen 9 mg/dl (7-17); Calcium 9.3 mg/dl (8.4-10.2); Carbon Dioxide 30 mmol/L (22.0-30.0); Creatinine Clearance Estimated 171 mL/min (50-200); Estimated Glomerular Filt Rate 80 ml/min (>60); GFR (African American) 97 ML/MIN (>60); Globulin 3.1 g/dL (1.3-3.2); Glucose 104 mg/dl (74-100); HCG Qualitative, Serum Negative (Negative); Lipase 67 U/L (23-300); Total Protein,Serum 7.5 g/dl (6.3-8.2)
--- NOTE | 2024-01-12 13:13 | PC.NURSE ---
Rounded on pt. No needs voiced at this time. Call light within reach.
[2024-01-12 13:25] LABS: Monoscreen (Rapid) Negative (Negative)
[2024-01-12 13:32] LABS: Microscopic, Urine URINE MICROSCOPIC (MICROSCOPIC)
[2024-01-12 13:34] LABS: Appearance,Urine CLEAR (Clear); Bilirubin,Urine Negative (Negative); Blood, Urine Negative (Negative); Color,Urine YELLOW (Yellow); Glucose,Urine (UA) Negative (Negative); Ketones,Urine Negative (Negative); Leukocyte Esterase,Urine Negative (Negative); Nitrate,Urine Negative (Negative); PH,Urine 6.5 (5.0-8.5); Protein,Urine Negative (Negative); Specific Gravity, Urine 1.025 (1.005-1.030); Urobilinogen,Urine 0.2 EU/dl (0.2)
--- NOTE | 2024-01-12 14:11 | PC.NURSE ---
pt gone to ct
[2024-01-12] MEDS: SODIUM CHLORIDE 0.9% 10ML SYR (RAD ONLY) 10 ML IV (14:23)
[2024-01-12] MEDS: IOPAMIDOL-370 (76%);100ML BOTTLE 75 ML IV (14:23)
[2024-01-12 14:38] LABS: Squamous Epithelial Cell,Urine Occasional #/hpf (0-5)
[2024-01-12 15:12] VITALS: BP 113/66; PULSE 66; RESP 15; TEMP 36.6; O2SAT 100
[2024-01-13 13:20] LABS: Cytomegalovirus (CMV) Ab, IgM <30.0 AU/mL (0.0-29.9)
[2024-01-14 15:26] LABS: EBV Ab VCA, IgM <36.0 U/mL (0.0-35.9)
[2024-01-15 14:48] LABS: CMV Quant DNA PCR (Plasma) Negative (Negative)
== END 2024-01-12 15:13 | disposition home or self-care (01) ==
PROVIDERS: Emergency Provider Emergency Medicine; PCP Internal Medicine
DX: R10.12 Left upper quadrant pain (principal); E04.9 Nontoxic goiter, unspecified; F31.81 Bipolar II disorder
CPT/HCPCS: 74177; 80053; 81001; 83690; 84703; 85025; 86318; 86645; 86664; 86665; 87497; 96374; 99285; Q9967

== ENCOUNTER 2024-01-21 10:00 | Outpatient (CLI) | payer MEDICARE, BC, SELFPAY ==
--- NOTE | 2024-01-21 10:04 | XR_ITS ---
FINAL REPORT CLINICAL HISTORY: Right foot pain COMPARISON: None FINDINGS: RIGHT FOOT: Three views of the right foot were obtained. There is no acute fracture or dislocation. There is moderate hallux valgus deformity. There is mild degenerative change of the first MTP. There is mild degenerative change of the midfoot. There is no soft tissue abnormality. IMPRESSION: Degenerative changes without acute bony abnormality. Reviewed, Interpreted and Dictated by Vasile Funes III, MD Transcribed by Elisabet Rolle Authenticated and [facility]
--- NOTE | 2024-01-21 10:04 | XR_ITS ---
FINAL REPORT CLINICAL HISTORY: Left foot pain COMPARISON: None FINDINGS: LEFT FOOT: Three views of the left foot were obtained. There is no acute fracture or dislocation. There is mild degenerative change. There is a valgus angulation of the midfoot and forefoot. Pes planus deformity is noted. There is a small plantar calcaneal spur. There is no soft tissue abnormality. IMPRESSION: Planovalgus deformity. Reviewed, Interpreted and Dictated by Vasile Funes III, MD Transcribed by Elisabet Rolle Authenticated and [facility]
== END 2024-01-21 23:59 ==
PROVIDERS: PCP Internal Medicine; Visit Provider Podiatrist
DX: M79.671 Pain in right foot (principal); M79.672 Pain in left foot
CPT/HCPCS: 73630

== ENCOUNTER 2024-01-28 19:42 | Outpatient (CLI) | payer MEDICARE, BC, SELFPAY | END 2024-01-28 23:59 | PROVIDERS: PCP Student in an Organized Health Care Education/Training Program; Visit Provider Student in an Organized Health Care Education/Training Program | DX: R05.9 Cough, unspecified (principal); R09.89 Other specified symptoms and signs involving the circulatory and respiratory systems | CPT/HCPCS: 87070; 87635 ==

== ENCOUNTER 2024-02-08 18:19 | Outpatient (CLI) | payer MEDICARE, BC, SELFPAY ==
[2024-02-08 18:42] LABS: HCG Qualitative, Serum Negative (Negative)
== END 2024-02-08 23:59 ==
PROVIDERS: PCP Student in an Organized Health Care Education/Training Program; Visit Provider Student in an Organized Health Care Education/Training Program
DX: N64.4 Mastodynia (principal)
CPT/HCPCS: 84703

== ENCOUNTER 2024-02-11 14:10 | Outpatient (CLI) | payer MEDICARE, BC, SELFPAY ==
--- NOTE | 2024-02-11 14:14 | XR_ITS ---
FINAL REPORT CLINICAL HISTORY: foot pain FINDINGS: LEFT FOOT: Three views of the left foot were obtained. There is no acute fracture or dislocation. Pes planus is present. There is mild degenerative change of the midfoot. There is no soft tissue abnormality. A small plantar calcaneal spur is present. IMPRESSION: Pes planus with mild degenerative change of the midfoot. Reviewed, Interpreted and Dictated by Vasile Funes III, MD Transcribed by Tisha Hoyos Authenticated and [facility]
--- NOTE | 2024-02-11 14:14 | XR_ITS ---
FINAL REPORT CLINICAL HISTORY: ankle pain COMPARISON: None FINDINGS: LEFT ANKLE: Three views of the left ankle were obtained. There is no acute fracture or dislocation. Mild degenerative change is present, with a chronic calcification inferior to the medial malleolus. A small plantar calcaneal spur is present. There is no soft tissue abnormality. IMPRESSION: No acute bony abnormality. Mild degenerative change as described. Reviewed, Interpreted and Dictated by Vasile Funes III, MD Transcribed by Tisha Hoyos Authenticated and [facility]
== END 2024-02-11 23:59 ==
PROVIDERS: PCP Internal Medicine; Visit Provider Podiatrist
DX: M25.372 Other instability, left ankle; S92.255 Nondisplaced fracture of navicular [scaphoid] of left foot; M25.572 Pain in left ankle and joints of left foot
CPT/HCPCS: 73610; 73630

== ENCOUNTER 2024-02-18 14:42 | Outpatient (CLI) | payer MEDICARE, BC, SELFPAY ==
--- NOTE | 2024-02-18 14:42 | US_ITS ---
PROCEDURE INFORMATION: Exam: US Right Breast, Complete US Left Breast, Complete Exam date and time: 02/18/2024 3:54 PM Age: 38 years old Clinical indication: Breast pain; Bilateral TECHNIQUE: Imaging protocol: Complete ultrasound of all four quadrants of the right breast and the retroareolar regions, including ultrasound of the axilla when performed. Complete ultrasound of all four quadrants of the left breast and the retroareolar regions, including ultrasound of the axilla when performed. COMPARISON: No relevant prior studies available. FINDINGS: ULTRASOUND: Breast ultrasound findings: Sonographic images of both breasts including the retroareolar regions, all 4 quadrants and the axilla do not demonstrate any solid or cystic masses. No architectural distortion or acoustical shadowing. No skin thickening or axillary adenopathy. Curses replaced over what may be a focus of normal fibrofatty tissue versus a true hypoechoic solid mass measuring 0.5 x 0.3 x 0.4 cm in the right 9 o'clock axis 5 cm from the nipple. IMPRESSION: Probably benign subcentimeter mass versus an island of fibrofatty tissue in the right 9 o'clock axis. Six-month follow-up targeted right breast ultrasound is recommended to ensure stability over time ASSESSMENT: BI-RADS Category 3: Probably benign.
== END 2024-02-18 23:59 ==
LOC: RAD 14:42
PROVIDERS: PCP Student in an Organized Health Care Education/Training Program; Visit Provider Student in an Organized Health Care Education/Training Program
DX: N64.4 Mastodynia (principal)
CPT/HCPCS: 76641

== ENCOUNTER 2024-02-22 09:43 | Outpatient (CLI) | payer MEDICARE, BC, SELFPAY ==
--- NOTE | 2024-02-22 09:47 | XR_ITS ---
FINAL REPORT CLINICAL HISTORY: L knee pain, no injury COMPARISON: None FINDINGS: Three views of the left knee reveal no evidence of fracture or dislocation. The bony alignment is normal. The joint spaces are preserved. There is no evidence of joint effusion. No localized soft tissue abnormality is seen. IMPRESSION: No acute abnormality identified. Reviewed, Interpreted and Dictated by Vasile Funes III, MD Transcribed by Elisabet Rolle Authenticated and [facility]
== END 2024-02-22 23:59 ==
LOC: RAD 09:44
PROVIDERS: PCP Internal Medicine; Visit Provider Student in an Organized Health Care Education/Training Program
DX: M25.562 Pain in left knee (principal)
CPT/HCPCS: 73562

== ENCOUNTER 2024-02-25 09:50 | Emergency (ER) | payer MEDICARE, BC, SELFPAY ==
[2024-02-25 10:20] VITALS: BP 132/79; PULSE 73; RESP 18; TEMP 36.6; O2SAT 96; BMI 33.9
--- NOTE | 2024-02-25 10:40 | EXP.UTC ---
Discharge Plan Disposition Patient Disposition: Home, Self-Care Condition: Good Prescriptions Prescriptions: New amoxicillin 875 mg tablet 875 mg PO Q12H Qty: 20 0RF methylprednisolone 4 mg Tablets,Dose Pack 4 mg PO DIRECTED 6 Days Qty: 21 0RF Rx Instructions: Take 1 pack as directed for 6 days No Action urea 40 % cream 1 applic topical BID Qty: 60 3RF celecoxib [Celebrex] 200 mg capsule 200 mg PO DAILY Qty: 30 2RF cyclobenzaprine 10 mg tablet 10 mg PO TID PRN (Reason: muscle spasm) 30 Days Qty: 90 3RF meloxicam 7.5 mg tablet 7.5 mg PO DAILY Qty: 30 2RF ofloxacin 0.3 % drops 10 drp otic (ear) DAILY 7 Days Qty: 5 0RF levocetirizine 5 mg tablet 5 mg PO DAILY Qty: 90 3RF Vraylar 1.5 mg capsule 1.5 mg PO DAILY Qty: 30 2RF atorvastatin 10 mg tablet See Rx Instructions .ROUTE .COMPLEX Qty: 90 3RF Dose Instruction: TAKE ONE TABLET BY MOUTH AT BEDTIME Rx Instructions: TAKE ONE TABLET BY MOUTH AT BEDTIME alcohol swabs [Alcohol Pads] Pads, Medicated 1 pad topical BID Qty: 200 3RF (DME) lancets [Accu-Chek Softclix Lancets] Misc See Rx Instructions .Route Qty: 200 3RF Rx Instructions: TEST GLUCOSE QD (DME) blood-glucose meter [Advanced Glucose Meter] Misc See Rx Instructions .ROUTE .MEDSUPPLY Qty: 1 0RF Rx Instructions: TEST GLUCOSE QD (DME) blood sugar diagnostic Strip See Rx Instructions .ROUTE .MEDSUPPLY Qty: 1 3RF Rx Instructions: TEST GLUCOSE (DME) Accu-Chek Guide test strips Strip See Rx Instructions .Route Qty: 100 0RF Rx Instructions: test glucose QD pantoprazole 40 mg tablet,delayed release (DR/EC) 40 mg PO DAILY Qty: 30 0RF Referrals Follow up/Referrals: Ayaan Heller DO [Primary Care Provider] - See instructions Activity Restrictions/Add. Instructions Additional Instructions/Restrictions: Drink plenty of fluids. Take tylenol or ibuprofen for pain or fever. Take the medications as directed. Follow up with your regular doctor. GO TO THE ER FOR ANY WORSENING SYMPTOMS Follow up with your primary care physician for a recheck within the next 48 to 72 hours. Clinical Impressions Clinical Impression: Pharyngitis, Neck pain Instructions Patient Instructions: DI for Neck Pain, Methylprednisolone Discharge ED Provider: [place] [facility] General Stated complaint: pain and swelling in neck Time Seen by Provider: 02/25/24 10:40 History of Present Illness Provider Complaint: She states that since last night she has has sore throat and tenderness of her lymph nodes in the her neck. When she woke up this morning her symptoms were worse. She denies fever/chills/body aches. Related Data Previous Rx's Medication Instructions Recorded atorvastatin 10 mg tablet See Rx Instructions .Route 12/27/22 .COMPLEX #90 tabs celecoxib 200 mg capsule (Celebrex) 200 mg PO DAILY #30 caps 06/06/23 cyclobenzaprine 10 mg tablet 10 mg PO TID PRN muscle spasm 30 11/08/23 days #90 tabs alcohol swabs (Alcohol Pads) 1 pad topical BID #200 ea 11/22/23 blood sugar diagnostic #1 ea 11/23/23 blood-glucose meter (Advanced #1 ea 11/23/23 Glucose Meter) lancets (Accu-Chek Softclix #200 ea 11/23/23 Lancets) blood sugar diagnostic (Accu-Chek #100 ea 11/27/23 Guide test strips) pantoprazole 40 mg tablet,delayed 40 mg PO DAILY #30 tabs 01/12/24 release meloxicam 7.5 mg tablet 7.5 mg PO DAILY #30 tabs 01/21/24 ofloxacin 0.3 % ear drops 10 drp otic (ear) DAILY 7 days #5 02/08/24 mL urea 40 % topical cream 1 applic topical BID #60 applic 02/11/24 cariprazine 1.5 mg capsule 1.5 mg PO DAILY #30 caps 02/22/24 (Vraylar) levocetirizine 5 mg tablet 5 mg PO DAILY #90 tabs 02/22/24 amoxicillin 875 mg tablet 875 mg PO Q12H #20 tabs 02/25/24 methylprednisolone 4 mg tablets in 4 mg PO DIRECTED 6 days #21 tabs 02/25/24 a dose pack Allergies Allergy/AdvReac Type Severity Reaction Status Date / Time prednisone Allergy Mild UPSET Verified 02/25/24 10:49 STOMACH PFSH PFSH Disclaimer: The information contained in this section may have been updated after the patient was seen, as this information can be updated by other users. Medical History Chronic right ear pain Pelvic pain Acute effusion of right ear Back Pain Weight gain Allergic rhinitis TMJ dysfunction Right ear pain Fatty liver Probably related to her obesity. Liver function increases are minimal. Bipolar II disorder SIRS (systemic inflammatory response syndrome) Elevated LFTs Restless legs syndrome Irregular menstrual cycle DUB (dysfunctional uterine bleeding) Thyroid enlarged Depression Hypoglycemia Surgical History S/P endometrial ablation History of tubal ligation History of section Family History Other No significant family history Social History Smoking Status: Never smoker second hand exposure: No alcohol intake: former substance use type: former substance user, marijuana and methamphetamine current occupational status: unemployed Travel in the last 8 weeks: [place] household members: family housing: house number of children: 2 current occupational exposures/hazards: No caffeine: Yes ROS Obtained: Yes All systems reviewed & no additional complaints except as documented Constitutional Constitutional: Reports chills and Reports fever(s) Eyes Eyes: Denies eye discharge ENT Ears, Nose, Mouth, and Throat: Reports as per HPI Cardiovascular Cardiovascular: Denies chest pain Respiratory Respiratory: Denies chest congestion and Reports cough Gastrointestinal Gastrointestingal: Reports nausea; Denies abdominal pain, constipation, cramping, diarrhea or vomiting Musculoskeletal Musculoskeletal: Denies arthralgias Integumentary/Breasts Skin/Breast: Denies rash Neurologic Neurologic: Denies paresthesias Physical Exam General General appearance: alert and in no apparent distress Head Head exam: atraumatic, normocephalic and normal inspection Eye Eye exam: Present normal appearance, PERRL and EOMI ENT ENT exam: Present mucous membranes moist and normal external ear exam Expanded ENT Exam TM/Canal exam: Bilateral TM: erythema and bulging Nose exam: Absent sinus tenderness Mouth exam: Present normal external inspection; Absent drooling Teeth exam: Present normal inspection Throat exam: Present tonsillar erythema, tonsillomegaly and tonsillar exudate Neck Neck exam: Present normal inspection, full ROM and trachea midline; Absent tenderness, meningismus or lymphadenopathy Chest Chest inspection: Present normal inspection and symmetric chest wall rise; Absent tenderness Respiratory Respiratory exam: Present normal lung sounds bilaterally; Absent respiratory distress, wheezes or stridor Cardiovascular Cardiovascular exam: Present regular rate and normal rhythm; Absent systolic murmur or diastolic murmur Abdominal Exam Abdominal exam: Present soft and normal bowel sounds; Absent distention, tenderness, guarding, rebound or rigidity Extremities Exam Extremities exam: Present normal inspection and normal capillary refill; Absent calf tenderness Back Exam Back exam: Present normal inspection and full ROM; Absent tenderness, CVA tenderness (R) or CVA tenderness (L) Neurological Exam Neurological exam: Present alert, oriented X3 and CN II-XII intact Psychiatric Psychiatric exam: Present normal affect and normal mood Skin Skin exam: Present warm, dry, intact and normal color Medical Decision Making Medical Records Medical records reviewed: No I reviewed the patient's medical records. Ravindra Inquiry Pt receiving controlled substance: No Lab Data Lab results reviewed: Yes I reviewed the patient's lab results.
[2024-02-25 10:56] LABS: UTC Strep Screen (Rapid) Negative (Negative)
[2024-02-25 11:27] VITALS: BP 132/79; PULSE 73; RESP 18; TEMP 36.6; O2SAT 95
== END 2024-02-25 11:17 | disposition home or self-care (01) ==
PROVIDERS: Emergency Provider Nurse Practitioner Family; PCP Internal Medicine
DX: J02.9 Acute pharyngitis, unspecified (principal); M54.2 Cervicalgia
CPT/HCPCS: 87880; 99212; 99214; G0463

== ENCOUNTER 2024-02-28 14:06 | Outpatient (CLI) | payer MEDICARE, BC, SELFPAY ==
--- NOTE | 2024-02-28 14:07 | US_ITS ---
FINAL REPORT CLINICAL HISTORY: thyroid nodules COMPARISON: 12/01/2022 FINDINGS: THYROID ULTRASOUND: The right lobe of the thyroid measures 4.9 x 2.1 x 1.4 cm in size. There is a 5 mm hypoechoic focus in the mid right thyroid lobe, which is stable when compared to the prior exam of 2022. No new focal nodules or masses are identified. The left lobe of the thyroid measures 4.5 x 1.6 x 1.5 cm in size. No focal nodule or mass is identified. No significant changes noted since the prior exam. The isthmus of the thyroid measures 3 mm in thickness. IMPRESSION: 5 mm TI-RADS 4 category nodule present in the right lobe of the thyroid gland, stable in appearance since the prior ultrasound of 12/01/2022. According to TI-RADS classification, the nodule does not require follow-up at this time. Reviewed, Interpreted and Dictated by Francisco Peace MD Transcribed by Tisha Hoyos Authenticated and [facility]
== END 2024-02-28 23:59 | disposition home or self-care (01) ==
LOC: RAD 14:07
PROVIDERS: PCP Internal Medicine; Visit Provider Nurse Practitioner
DX: E04.9 Nontoxic goiter, unspecified (principal)
CPT/HCPCS: 76536

== ENCOUNTER 2024-03-03 12:47 | Outpatient (CLI) | payer MEDICARE, BC, SELFPAY ==
--- NOTE | 2024-03-03 12:48 | MR_ITS ---
FINAL REPORT CLINICAL HISTORY: Ankle/Achilles pain. popping in ankle COMPARISON: None FINDINGS: Multiplanar MR imaging of the left ankle was performed without contrast. The bony structures are intact without evidence of fracture, bone bruise or marrow edema. There is soft tissue swelling in the medial soft tissues of the ankle. No osteochondral lesion is identified. There is mild irregularity of the ATFL, that may be secondary to chronic injury. The PT FL is intact. There is fluid in the posterior tibial tendon sheath, likely tenosynovitis. The posterior plantar aponeurosis is intact. No significant joint effusion is seen. The musculature is intact. There is no evidence of soft tissue mass or cyst. IMPRESSION: Soft tissue swelling in the medial soft tissues of the ankle. Fluid in the posterior tibial tendon sheath, likely tenosynovitis. Mild irregularity of the ATFL, possibly secondary to chronic injury. Reviewed, Interpreted and Dictated by Francisco Peace MD Transcribed by Tisha Hoyos Authenticated and [facility]
== END 2024-03-03 23:59 | disposition home or self-care (01) ==
LOC: RAD 12:48
PROVIDERS: PCP Internal Medicine; Visit Provider Podiatrist
DX: M76.62 Achilles tendinitis, left leg (principal); M76.72 Peroneal tendinitis, left leg; M76.822 Posterior tibial tendinitis, left leg; S92.255 Nondisplaced fracture of navicular [scaphoid] of left foot
CPT/HCPCS: 73721

== ENCOUNTER 2024-03-31 12:01 | Outpatient (CLI) | payer MEDICARE, BC, SELFPAY ==
[2024-03-31 21:28] LABS: Basophils # 0.1 K/mm3 (0-0.2); Eosinophils # 0.4 K/mm3 (0.0-0.4); Eosinophils % 3.9 % (0.1-12.0); Hematocrit 47.9 % (37.0-47.0); Hemoglobin 15.4 g/dL (12.2-16.2); Lymphocytes % 29.6 % (10-50); Mean Corpuscular HGB Conc 32.1 g/dL (31.8-35.4); Mean Corpuscular Hemoglobin 29.2 pg (27.0-31.2); Mean Corpuscular Volume 91.2 fl (81-99); Mean Platelet Volume 9.4 fl (7.4-10.4); Monocytes # 0.8 K/mm3 (0.1-1.0); Monocytes % 7.4 % (1.7-9.3); Neutrophils % 58.2 % (37.0-80.0); Platelet Count 283 K/mm3 (142-424); Red Blood Count 5.26 M/mm3 (4.20-5.40); Red Cell Distribution Width 14.1 % (11.5-17.5); White Blood Count 10.3 K/mm3 (4.8-10.8)
[2024-03-31 22:22] LABS: Alanine Aminotransferase 92 U/L (12-78); Albumin Level 4.2 g/dl (3.5-5.0); Albumin/Globulin Ratio 1.7 (1.1-1.8); Alkaline Phosphatase 101 U/L (38-126); Aspartate Amino Transferase 50 U/L (14-36); Bilirubin,Total 0.5 mg/dl (0.2-1.3); Blood Urea Nitrogen 16 mg/dl (7-17); Calcium 9.8 mg/dl (8.4-10.2); Carbon Dioxide 24 mmol/L (22.0-30.0); Chloride 107 mmol/L (98-107); Estimated Glomerular Filt Rate 94 ml/min (>60); GFR (African American) 113 ML/MIN (>60); Globulin 2.5 g/dL (1.3-3.2); Glucose 127 mg/dl (74-100); Sodium 142 mmol/L (136-145); Total Protein,Serum 6.7 g/dl (6.3-8.2)
[2024-03-31 22:28] LABS: Anion Gap 15.5 mEq/L (5-15); Potassium 4.5 mmoL/L (3.5-5.1)
[2024-03-31 22:37] LABS: 25-OH Vitamin D, Total 33.4 ng/mL (30-100)
[2024-03-31 22:43] LABS: Hemoglobin A1C 5.7 % (4.0-6.0)
[2024-03-31 23:19] LABS: Vitamin B12 > 1000 pg/mL (239-931)
== END 2024-03-31 23:59 | disposition home or self-care (01) ==
LOC: LAB.DROPOF 04-01 12:02
PROVIDERS: PCP Internal Medicine; Visit Provider Internal Medicine
DX: R53.83 Other fatigue (principal); R73.09 Other abnormal glucose; E55.9 Vitamin D deficiency, unspecified; Z68.41 Body mass index [BMI] 40.0-44.9, adult
CPT/HCPCS: 80053; 82306; 82607; 83036; 85025

== ENCOUNTER 2024-03-31 14:00 | Outpatient (RCR) | payer MEDICARE, BC, SELFPAY ==
--- NOTE | 2024-03-07 12:30 | HMH.PTOPEV ---
PT Outpatient Evaluation Rehab PT Outpatient Evaluation Start: 03/07/24 10:55 Freq: Status: Active Protocol: Document 03/07/24 10:55 DORINDA (Rec: 03/07/24 12:27 DORINDA [id number]) E-signed By Sheela Stewart, PT Outpatient Therapy Subjective History Subjective History This is an initial evaluation for Nicole Cid who presents with L knee pain that began insidiously 2 years ago . Pt reports she additionally has been having ankle pain. Pt is supposed to be wearing an ankle boot but is non- compliant with boot. Pt's primary complaint is a nonpainful grinding in her knee and general knee pain with activity. Pt reports pain when turning over in bed, sitting long periods, negotiating stairs, and squatting. Pt denies fall or injury to knee. Knee X-ray clear from acute bony injury. Denies having further knee imaging. PMH: Pre-diabetic, Eustachian tube obstruction, Chronic right ear pain, TMJ dysfunction, Fatty liver, Bipolar II disorder, SIRS ( systemic inflammatory response syndrome), Elevated LFTs, Restless legs syndrome, Thyroid enlarged, Depression, Hypoglycemia New diagnosis of cancer in past 12 No months? Chief Complaint Pain,Clicks,Weakness Symptom Type Ache,Sharp,Stabbing,Shooting Symptoms Relieved By Rest/Positioning,OTC Meds Symptoms Aggravated By Sitting,Standing,Physical Activity,Walking,Lifting, Sneeze/Coughing Current Functional Limitations Standing,Sitting,Squatting, Recreation Activity,Walking, Stairs,Bending/Stooping Symptom Description Intermittent Level of pain today (0-10) 2 Pain scale - at its best (0-10) 0 Pain scale - at its worst (0-10) 10 Hip/Knee Eval Gait Observation General Gait Pattern Observation Wide Based Gait Palpation Tenderness left Knee Palpation Finding Tenderness Knee Palpation Overall Comment 2/4 TTP medial and posterior joint line MMT Hip Flexion Strength Grade 4 Good Hip Abduction Strength Grade 4 Good Hip Adduction Strength Grade 4 Good Hip Extension Strength Grade 4 Good Knee Extension Strength Grade 4- Good- Knee Flexion Strength Grade 4- Good- ROM Knee Extension Active Range of Motion ( Hyperextension degrees) Knee Flexion Active Range of Motion ( WNL, 127 degrees) Special Tests Knee Medial-Lateral Grind Test Negative Left Knee Ruiz Test Negative Left Knee Anterior Margarito Test Negative Left Knee Pivot Shift Test Negative Left Knee Posterior Sag (Nunez Drawer) Test Negative Left Knee Valgus Stress Test Negative Left Knee Varus Stress Test Negative Left Knee Gabriela Test Negative Left Patella Apprehension Test Negative Left Patellar Tilt Test Negative Left Lower Extremity Functional Index Activities Today, do you or would you have any difficulty at all with: a.Any of your usual work, housework or No difficulty school activities b. Your usual hobbies, recreational or No difficulty sporting activities c. Getting into or out of the bath A little bit of difficulty d. Walking between rooms No difficulty e. Putting on your shoes or socks No difficulty f. Squatting A little bit of difficulty g. Lifting an object, like a bag of No difficulty groceries from the floor h. Performing light activities around A little bit of difficulty your home i. Performing heavy activities around No difficulty your home j. Getting into or out of a car No difficulty k. Walking 2 blocks No difficulty l. Walking a mile No difficulty m. Going up or down 10 stairs (about 1 No difficulty flight of stairs) n. Standing for 1 hour A little bit of difficulty o. Sitting for 1 hour No difficulty p. Running on even ground No difficulty q. Running on uneven ground No difficulty r. Making sharp turns while running fast No difficulty s. Hopping A little bit of difficulty t. Rolling over in bed A little bit of difficulty LEFI Score Lower Extremity Functional Index Score 74 Outpatient Therapy Assessment Impairments Problems/Impairmments Palpation Tenderness,Impaired Strength,Impaired Gait Pattern ,Impaired Walking,Impaired Standing,Impaired Sitting, Impaired Stair Climbing, Impaired Incline Stepping, Impaired Squatting,Impaired Bending,Impaired Recreational Activities,Subjective C/O Pain Prognosis Rehab Potential Good Clinical Impression Consistent with Diagnosis Yes Short Term Goals Number of Weeks 3 Increase Strength Yes: L knee strength to 4/5 Increase Ability to Walk Yes: Verbalize initiation of a walking program at home. Improve Self Care/Self Management Yes: At worst 8/10 to demo decreased pain severity. Patient to be Ind w/ HEP Yes Ore Trimmer Goals Number of Weeks 5 Decreased Palpation Tenderness Yes: 0/4 TTP medial knee Increase Strength Yes: WNL/5/5 BLE to improve functional knee and hip strength Increase Endurance Yes: Tolerate 10 minutes of moderate intensity CV training . Improve LEFI Score Yes: Improve to score of 76/80 to improve QOL Decrease Subjective C/O Pain Yes: Pain at worst 5/10 to demo decreased pain severity and improve QOL Patient to be Ind w/ Advanced HEP Yes Outpatient Therapy Plan of Care Treatment Plan May Include Therapeutic Exercise Including Home Yes Exercise Program Manual Therapy Techniques Yes Neuromuscular Re-education Yes Therapeutic Activities to Return to Yes Previous Functional/Work Level Gait Training Yes ADL/Self Care Education Yes Thermal Modalities Yes Electrical Stimulation Yes Ultrasound/Phonophoresis Yes Iontophoresis Yes Vasopneumatic Compression Pump Yes Eval/Re-Eval Yes Frequency Times per week 1-2 times Duration Number of Weeks 4-5 weeks Addendums This patient is a candidate for social No or vocational rehab? Patient/Guardian verbally acknowledges Yes understanding of treatment program and consents to further treatment? Patient/Guardian verbally acknowledges Yes understanding of diagnosis, prognosis and goals for treatment? Eval Complexity PT Charges 17547 - Moderate Complexity Shoulder/Elbow Eval Shoulder Objective Measurements Elbow Objective Measurements PHYSICIAN CERTIFICATION: I certify the specified therapy services for Nicole Cid are required, authorized, and reviewed every 30 days.
== END 2024-03-31 15:20 | disposition home or self-care (01) ==
LOC: PT 14:00
PROVIDERS: Visit Provider Student in an Organized Health Care Education/Training Program
DX: M25.562 Pain in left knee (principal)
CPT/HCPCS: 97163; 97535

== ENCOUNTER 2024-04-06 07:54 | Emergency (ER) | payer MEDICARE, BC, SELFPAY ==
[2024-04-06 08:01] VITALS: BP 130/78; PULSE 76; RESP 20; TEMP 36.8; O2SAT 97; BMI 41.3
--- NOTE | 2024-04-06 08:06 | HMH.EDGENADL ---
Discharge Plan Disposition Patient Disposition: Home, Self-Care Condition: Good Prescriptions Prescriptions: New benzonatate 100 mg capsule 100 mg PO BID PRN (Reason: cough) Qty: 20 0RF No Action urea 40 % cream 1 applic topical BID Qty: 60 3RF Vraylar 3 mg capsule 3 mg PO DAILY Qty: 30 2RF metformin 500 mg tablet 500 mg PO DAILY Qty: 90 0RF montelukast 10 mg tablet 10 mg PO DAILY Qty: 90 3RF cyclobenzaprine 10 mg tablet 10 mg PO TID PRN (Reason: muscle spasm) 30 Days Qty: 90 3RF mupirocin 2 % ointment 1 applic topical BID Qty: 15 0RF alcohol swabs [Alcohol Pads] Pads, Medicated 1 pad topical BID Qty: 200 3RF (DME) lancets [Accu-Chek Softclix Lancets] Misc See Rx Instructions .Route Qty: 200 3RF Rx Instructions: TEST GLUCOSE QD (DME) blood-glucose meter [Advanced Glucose Meter] Misc See Rx Instructions .ROUTE .MEDSUPPLY Qty: 1 0RF Rx Instructions: TEST GLUCOSE QD (DME) blood sugar diagnostic Strip See Rx Instructions .ROUTE .MEDSUPPLY Qty: 1 3RF Rx Instructions: TEST GLUCOSE (DME) Accu-Chek Guide test strips Strip See Rx Instructions .Route Qty: 100 0RF Rx Instructions: test glucose QD pantoprazole 40 mg tablet,delayed release (DR/EC) See Rx Instructions .ROUTE .COMPLEX Qty: 30 0RF Dose Instruction: TAKE ONE TABLET BY MOUTH EVERY DAY Rx Instructions: TAKE ONE TABLET BY MOUTH EVERY DAY atorvastatin 10 mg tablet See Rx Instructions .ROUTE .COMPLEX Qty: 90 3RF Dose Instruction: TAKE ONE TABLET BY MOUTH EVERY DAY AT BEDTIME Rx Instructions: TAKE ONE TABLET BY MOUTH EVERY DAY AT BEDTIME Referrals Follow up/Referrals: Ayaan Heller DO [Primary Care Provider] - See instructions Activity Restrictions/Add. Instructions Additional Instructions/Restrictions: As we discussed, I prescribed a cough medication for you. Please follow-up with the results of your COVID test on the patient portal. Please return with any new or worsening symptoms. Clinical Impressions Clinical Impression: Pharyngitis Discharge ED Provider: Mulugeta Stanton Adult HPI General Chief complaint: Upper Respiratory Infection Stated complaint: sore throat, ear pain, bodyaches, cough Time Seen by Provider: 04/06/24 08:05 History of Present Illness HPI narrative: The patient presents with a chief complaint of coughing that began yesterday. She reports waking up without a voice and experiencing clogged ears, though without pain. The cough is productive, with phlegm that has an unpleasant taste. Despite the cough, the patient denies any shortness of breath, fever, chills, or known exposure to sick individuals. She mentions muscle pain attributed to the coughing. The patient has a history of ear issues, including significant scar tissue and recurrent ear infections, and is currently under the care of an ear, nose, and throat specialist. She has upcoming appointments, including a hearing test. She also notes having two holes in her septum, which precludes the use of nasal sprays like Flonase. Regarding medications, the patient is currently taking Vraylar for depression, a cholesterol medication, an allergy medication, and an antacid. She also has nausea medication at home and is using cough syrup for her current symptoms. Please note that above description of symptoms, in this electronic medical record under categorization of recalled from ER triage doctor by RN are reflective of an initial nursing assessment, however, is not reflective of my full history and physical exam that was personally taken and clarified. Consequentially, this preceding description of symptoms, which may include the patient's categorized chief complaint in the EMR, do not reflect my personal clinical impression, and the ultimate description of history of present illness and patient stated complaints should be deferred to this section of the note. Unless stated otherwise or congruent with this section of the note, additional signs, symptoms, or incongruence should be interpreted as inaccurate with my clinical impression. Related Data Previous Rx's Medication Instructions Recorded cyclobenzaprine 10 mg tablet 10 mg PO TID PRN muscle spasm 30 11/08/23 days #90 tabs alcohol swabs (Alcohol Pads) 1 pad topical BID #200 ea 11/22/23 blood sugar diagnostic #1 ea 11/23/23 blood-glucose meter (Advanced #1 ea 11/23/23 Glucose Meter) lancets (Accu-Chek Softclix #200 ea 11/23/23 Lancets) blood sugar diagnostic (Accu-Chek #100 ea 11/27/23 Guide test strips) urea 40 % topical cream 1 applic topical BID #60 applic 02/11/24 pantoprazole 40 mg tablet,delayed See Rx Instructions .Route 03/07/24 release .COMPLEX #30 tabs metformin 500 mg tablet 500 mg PO DAILY #90 tabs 03/10/24 mupirocin 2 % topical ointment 1 applic topical BID #15 grams 03/24/24 atorvastatin 10 mg tablet See Rx Instructions .Route 03/25/24 .COMPLEX #90 tabs cariprazine 3 mg capsule (Vraylar) 3 mg PO DAILY #30 caps 04/02/24 montelukast 10 mg tablet 10 mg PO DAILY #90 tabs 04/04/24 benzonatate 100 mg capsule 100 mg PO BID PRN cough #20 caps 04/06/24 Allergies Allergy/AdvReac Type Severity Reaction Status Date / Time prednisone Allergy Mild UPSET Verified 04/04/24 13:05 [facility] Disclaimer: The information contained in this section may have been updated after the patient was seen, as this information can be updated by other users. Medical History Eustachian tube obstruction Chronic right ear pain Pelvic pain Acute effusion of right ear Back Pain Weight gain Allergic rhinitis TMJ dysfunction Right ear pain Fatty liver Probably related to her obesity. Liver function increases are minimal. Bipolar II disorder SIRS (systemic inflammatory response syndrome) Elevated LFTs Restless legs syndrome Irregular menstrual cycle DUB (dysfunctional uterine bleeding) Thyroid enlarged Depression Hypoglycemia Surgical History S/P endometrial ablation History of tubal ligation History of section Family History Other No significant family history Social History Smoking Status: Never smoker second hand exposure: No alcohol intake: former substance use type: former substance user, marijuana and methamphetamine current occupational status: unemployed Travel in the last 8 weeks: Inside the [place] household members: family housing: house number of children: 2 current occupational exposures/hazards: No caffeine: Yes ROS Obtained: Yes other As per HPI Physical Exam General General appearance: alert and in no apparent distress Head Head exam: atraumatic and normocephalic Eye Eye exam: Present normal appearance Neck Neck exam: Present normal inspection Chest Chest inspection: Present normal inspection and symmetric chest wall rise Respiratory Respiratory exam: Present normal lung sounds bilaterally; Absent respiratory distress Cardiovascular Cardiovascular exam: Present regular rate and normal rhythm Abdominal Exam Abdominal exam: Present soft Neurological Exam Neurological exam: Present alert and oriented X3 Psychiatric Psychiatric exam: Present normal affect and normal mood Skin Skin exam: Present warm and dry Other Other exam information: Oropharyngeal erythema, bulging tympanic membranes bilaterally, no purulence, no otalgia, tonsils within normal limits, lungs clear to auscultation bilaterally Medical Decision Making Medical Records Medical records reviewed: Yes I reviewed the patient's medical records. Ravindra Inquiry Pt receiving controlled substance: No Vital Signs: 04/06/24 08:01 04/06/24 09:06 Temperature 98.2 F 98.5 F Temperature Source Oral Oral Pulse Rate 86 Pulse Rate [Left Radial] 76 Respiratory Rate 20 18 Blood Pressure 137/77 Blood Pressure [Right Arm] 130/78 Blood Pressure Mean [Right Arm] 95 02 Sat by Pulse Oximetry 97 Oxygen Delivery Method Room Air Room Air Lab Data Lab Results 04/06/24 08:41: SARS-CoV-2 (PCR) Not detected, Influenza A Untype (PCR) Not detected, Influenza Type B (PCR) Not detected Orders (Tests/Meds): ORDERS Category Date Time Status Rapid PCR Covid and Flu A/B Stat Lab 04/06/24 08:41 Completed Medical Decision Narrative: Patient with history and exam per above presenting for evaluation of upper respiratory symptoms, cough Diagnoses considered include bronchitis, influenza, strep pharyngitis thought to be unlikely given constellation of symptoms, no clinical evidence to suggest pneumonia. No clinical evidence of RPA, CABLE LACER, epiglottitis. ED workup and treatment included: ORDERS Category Date Time Status Rapid PCR Covid and Flu A/B Stat Lab 04/06/24 08:41 Completed Labs were independently interpreted by me, significant for no acute findings Insufficient evidence to warrant any imaging at this time. My clinical impression at this time is most consistent with bronchitis, unspecified viral URI I discussed my clinical impression with patient and answered all questions. At this time, the evidence for any other entities in the differential is insufficient to warrant any further testing or ED observation. This was explained to the patient. The patient was advised that persistent or worsening symptoms require further evaluation. I confirmed the patient's understanding of this discussion. Critical Care Critical Care Time Critical Care Time: No
[2024-04-06 08:46] LABS: Coronavirus 19, PCR Not Detected (NotDetected); Influenza A, PCR Not Detected (NotDetected); Influenza B, PCR Not Detected (NotDetected)
[2024-04-06 09:06] VITALS: BP 137/77; PULSE 86; RESP 18; TEMP 36.9; O2SAT 96
== END 2024-04-06 09:12 | disposition home or self-care (01) ==
PROVIDERS: Emergency Provider Emergency Medicine; PCP Internal Medicine
DX: J20.9 Acute bronchitis, unspecified (principal); R05.9 Cough, unspecified; J06.9 Acute upper respiratory infection, unspecified; B34.9 Viral infection, unspecified
CPT/HCPCS: 87636; 99283

== ENCOUNTER 2024-04-09 09:56 | Outpatient (POV) | payer MEDICARE, BC, SELFPAY | END 2024-04-09 23:59 | disposition home or self-care (01) | LOC: SC 09:57 | PROVIDERS: Visit Provider Specialist/Technologist | DX: Z00.00 Encounter for general adult medical examination without abnormal findings (principal) ==

== ENCOUNTER 2024-04-23 11:00 | Outpatient (RCR) | payer MEDICARE, BC, SELFPAY ==
--- NOTE | 2024-03-20 12:00 | HMH.PTOPEV ---
PT Outpatient Evaluation Rehab PT Outpatient Evaluation Start: 03/20/24 08:32 Freq: Status: Active Protocol: Document 03/20/24 08:32 GENESIS (Rec: 03/20/24 12:00 GENESIS [id number]) E-signed By Angi Dickey, PT Outpatient Therapy Subjective History Subjective History Pt is a 38 y/o female who reports chronic L medial foot/ ankle pain. Pt reports she saw Dr. Selby at the beginning of February for L foot pain and swelling, states she was told she had an old hairline fracture in her foot and tendonitis. Pt had a L ankle MRI on 03/03/24 with impression of Soft tissue swelling in the medial soft tissues of the ankle. Fluid in the posterior tibial tendon sheath, likely tenosynovitis. Mild irregularity of the ATFL, possibly secondary to chronic injury. Pt reports she was placed FWB in a walking boot and recently transitioned to a lace up ankle brace on . Pt reports she hasn't been fully compliant with wear of the ankle brace, states she didn't wear it yesterday while helping a family member move which involved going up/ down stairs multiple times. Pt also is not wearing the brace this date. Pt reports she is only able to fit her ankle brace in her slipper because it is too wide, denies having a good supportive tennis shoe. Pt reports medial foot pain is aggravated by prolonged standing/walking, traversing stairs, and any impact to the foot. Pt reports she noticed swelling that is worse at the end of the day. Pt reports intermittent numbness/tingling of the L foot and burning of the bottom of the foot when swelling is worse. Pt reports she takes prescribed Meloxicam and Flexeril which does help with pain. Pt reports she returns to Dr. Selby on for her next follow-up visit. Medical History: Fatty liver disease, Bipolar II disorder, SIRS, restless leg syndrome, Hypoglycemia, Depression Edema: L ankle figure 8 59cm, malleoli circumference 32cm New diagnosis of cancer in past 12 No months? Chief Complaint Pain,Swelling,Paresthesia, Weakness Symptom Type Throb,Sharp,Stabbing,Burning, Numbness,Tingling Symptoms Relieved By Rest/Positioning,Prescription Meds Symptoms Aggravated By Standing,Physical Activity, Walking,Lifting Current Functional Limitations Lifting,Standing,Squatting, Recreation Activity,Walking, Stairs,Balance Symptom Description Constant but Variable Level of pain today (0-10) 4 Pain scale - at its best (0-10) 2 Pain scale - at its worst (0-10) 10 Ankle/Foot Eval Gait Observation General Gait Pattern Observation Antalgic Gait Assistive Device Ambulation Assistive Device None Palpation Tenderness left Ankle/Foot Palpation Findings Tenderness Ankle/Foot Palpation Overall Comment medial arch, peroneal tt, post tib tt, distal achilles tt 2- 3/4 TTP ROM Ankle/Foot Dorsiflexion w/Knee Extended 5 Active Range Motion (degrees) Ankle/Foot Plantar Flexion Active Range 30 of Motion (degrees) Ankle/Foot Eversion Active Range of 15 Motion (degrees) Ankle/Foot Inversion Active Range of 10 Motion (degrees) MMT Ankle Dorsiflexion Strength Grade 4- Good- Ankle Plantarflexion Strength Grade 4- Good- Foot Eversion Strength Grade 4 Good Foot Inversion Strength Grade 4 Good Lower Extremity Functional Index Activities Today, do you or would you have any difficulty at all with: a.Any of your usual work, housework or A little bit of difficulty school activities b. Your usual hobbies, recreational or No difficulty sporting activities c. Getting into or out of the bath No difficulty d. Walking between rooms No difficulty e. Putting on your shoes or socks No difficulty f. Squatting A little bit of difficulty g. Lifting an object, like a bag of No difficulty groceries from the floor h. Performing light activities around A little bit of difficulty your home i. Performing heavy activities around A little bit of difficulty your home j. Getting into or out of a car No difficulty k. Walking 2 blocks A little bit of difficulty l. Walking a mile A little bit of difficulty m. Going up or down 10 stairs (about 1 A little bit of difficulty flight of stairs) n. Standing for 1 hour A little bit of difficulty o. Sitting for 1 hour No difficulty p. Running on even ground A little bit of difficulty q. Running on uneven ground A little bit of difficulty r. Making sharp turns while running fast A little bit of difficulty s. Hopping A little bit of difficulty t. Rolling over in bed No difficulty LEFI Score Lower Extremity Functional Index Score 68 Outpatient Therapy Assessment Impairments Problems/Impairmments Palpation Tenderness,Impaired Range of Motion,Impaired Strength,Impaired Gait Pattern ,Impaired Walking,Impaired Standing,Impaired Stair Climbing,Impaired Incline Stepping,Impaired Stepping on Uneven Surface,Impaired Recreational Activities, Impaired Balance,Increased Edema,Subjective C/O Pain, Impaired Self Care/Self Management Prognosis Rehab Potential Good Clinical Impression Consistent with Diagnosis Yes Short Term Goals Number of Weeks 3 Decrease Subjective C/O Pain Yes: Improve pain at worst to 8/10 to improve overall QOL Improve Self Care/Self Management Yes Patient to be Ind w/ HEP Yes Detention Goals Number of Weeks 6 Decreased Palpation Tenderness Yes: 1-2/4 TTP of L ankle/foot complex Increase Range of Motion Yes: Improve L ankle AROM to WNL Increase Strength Yes: Improve L ankle MMT to 4+ -5/5 grossly to assist with function Increase Ability to Walk Yes: >15' with pain 6/10 or less to assist with iADLs Increase Ability to Stand Yes: >15' with pain 6/10 or less to ADLs Improve LEFI Score Yes: Improve score to 73/80 to improve overall QOL Decrease Edema Yes Decrease Subjective C/O Pain Yes: Improve pain at worst to 6/10 to improve overall QOL Patient to be Ind w/ Advanced HEP Yes Outpatient Therapy Plan of Care Treatment Plan May Include Therapeutic Exercise Including Home Yes Exercise Program Manual Therapy Techniques Yes Neuromuscular Re-education Yes Therapeutic Activities to Return to Yes Previous Functional/Work Level Gait Training Yes ADL/Self Care Education Yes Dry Needling Yes Thermal Modalities Yes Electrical Stimulation Yes Ultrasound/Phonophoresis Yes Iontophoresis Yes Orthotics/Bracing/Splinting Yes Vasopneumatic Compression Pump Yes Massage Yes Manual Lymphatic Drainage Yes Eval/Re-Eval Yes Frequency Times per week 2 Duration Number of Weeks 4-6 Addendums This patient is a candidate for social No or vocational rehab? Patient/Guardian verbally acknowledges Yes understanding of treatment program and consents to further treatment? Patient/Guardian verbally acknowledges Yes understanding of diagnosis, prognosis and goals for treatment? Eval Complexity PT Charges 43507 - Moderate Complexity Shoulder/Elbow Eval Shoulder Objective Measurements Elbow Objective Measurements PHYSICIAN CERTIFICATION: I certify the specified therapy services for Nicole Cid are required, authorized, and reviewed every 30 days.
--- NOTE | 2024-04-23 12:02 | HMH.RHREAS ---
Rehab Reassessment Rehab OP Re-assessment Start: 03/20/24 08:32 Freq: Status: Active Protocol: Document 04/23/24 11:10 GENESIS (Rec: 04/23/24 12:02 GENESIS [id number]) E-signed By Angi Dickey PT Lower Extremity Functional Index Activities Today, do you or would you have any difficulty at all with: a.Any of your usual work, housework or No difficulty school activities b. Your usual hobbies, recreational or No difficulty sporting activities c. Getting into or out of the bath No difficulty d. Walking between rooms No difficulty e. Putting on your shoes or socks No difficulty f. Squatting A little bit of difficulty g. Lifting an object, like a bag of No difficulty groceries from the floor h. Performing light activities around No difficulty your home i. Performing heavy activities around A little bit of difficulty your home j. Getting into or out of a car No difficulty k. Walking 2 blocks A little bit of difficulty l. Walking a mile A little bit of difficulty m. Going up or down 10 stairs (about 1 No difficulty flight of stairs) n. Standing for 1 hour A little bit of difficulty o. Sitting for 1 hour No difficulty p. Running on even ground No difficulty q. Running on uneven ground No difficulty r. Making sharp turns while running fast A little bit of difficulty s. Hopping A little bit of difficulty t. Rolling over in bed No difficulty LEFI Score Lower Extremity Functional Index Score 73 Rehab Re-assessment Subjective Subjective Pt reports she feels 90% improved since starting PT. Pt reports anteromedial foot pain rated 4/10 at worst with increased activity levels. Pt also reports mild swelling in the morning times localized to the same region. Pt reports no pain with rest. Pt reports she has been wearing her ankle brace only with prolonged walking/activity with good tolerance. Pt reports she returns to her doctor on the . Objective Objective Notes L ankle AROM: 12 DF, 40 PF, 25 inv, 18 ev L ankle MMT: 5/5 grossly, pain with resisted inversion only Assessment Assessment Notes Pt has attended 5 PT visits consisting of aerobic exercise , ankle AROM, LE stretching/ strengthening, balance/ proprioception training and modalities with good tolerance . Pt demonstrated improved subjective report of pain, LEFS score, ankle AROM, and strength since the initial evaluation. Pt met all PT goals and is appropriate to discharge to independent HEP at this time. Patient goals met ST/3 LT/9 Goals Not Met n/a Revised Goals n/a Plan Plan Discharge to independent HEP Time and Billing Re-Eval Time 10 Re-Eval Billing Units 1 PHYSICIAN CERTIFICATION: I certify the specified therapy services for Nicole Cid are required, authorized, and reviewed every 30 days.
== END 2024-04-23 12:00 | disposition home or self-care (01) ==
LOC: PT 11:00
PROVIDERS: Visit Provider Podiatrist
DX: M25.372 Other instability, left ankle (principal)
CPT/HCPCS: 97010; 97014; 97035; 97110; 97163; 97164; 97530; G0283

== ENCOUNTER 2024-05-27 13:53 | Outpatient (CLI) | payer MEDICARE, BC, SELFPAY ==
--- NOTE | 2024-05-27 13:58 | XR_ITS ---
FINAL REPORT CLINICAL HISTORY: R elbow pain after injury FINDINGS: AP, oblique, and lateral views of the right elbow were obtained. There is no prior exam for comparison. There is no acute fracture or dislocation. Joint space is preserved. There is no joint effusion or other soft tissue abnormality. IMPRESSION: No acute osseous abnormality of the right elbow. Reviewed, Interpreted and Dictated by Dary Samaniego MD Transcribed by Elisabet Rolle Authenticated and [facility]
== END 2024-05-27 23:59 | disposition home or self-care (01) ==
LOC: RAD 13:54
PROVIDERS: PCP Internal Medicine; Visit Provider Student in an Organized Health Care Education/Training Program
DX: M25.521 Pain in right elbow (principal)
CPT/HCPCS: 73080

== ENCOUNTER 2024-07-30 10:10 | Outpatient (CLI) | payer MEDICARE, BC, SELFPAY ==
--- NOTE | 2024-07-30 10:14 | XR_ITS ---
FINAL REPORT CLINICAL HISTORY: R knee pain, no injury COMPARISON: None FINDINGS: Three views of the right knee were obtained. There is no acute fracture or dislocation. The joint spaces are well preserved. There is no acute soft tissue abnormality. IMPRESSION: No acute abnormality identified. Reviewed, Interpreted and Dictated by Francisco Peace MD Transcribed by Elisabet Rolle [facility]
== END 2024-07-30 23:59 | disposition home or self-care (01) ==
LOC: RAD 10:11
PROVIDERS: PCP Internal Medicine; Visit Provider Student in an Organized Health Care Education/Training Program
DX: M25.561 Pain in right knee (principal)
CPT/HCPCS: 73562

== ENCOUNTER 2024-08-19 12:33 | Outpatient (CLI) | payer MEDICARE, BC, SELFPAY ==
--- NOTE | 2024-08-19 12:34 | US_ITS ---
PROCEDURE INFORMATION: Exam: US Right Breast, Complete Exam date and time: 08/19/2024 12:53 PM Age: 38 years old Clinical indication: Short-term sonographic follow-up of a questionable right lateral breast mass TECHNIQUE: Imaging protocol: Complete ultrasound of all four quadrants of the right breast and the retroareolar regions, including ultrasound of the axilla when performed. COMPARISON: US BREAST RT COMPLETE 02/18/2024 3:54 PM FINDINGS: ULTRASOUND: Breast ultrasound findings: Sonographic images of the right 9 o'clock axis 5 cm from the nipple demonstrates questionable cluster of subcentimeter cysts with a combined dimension of approximately 0.4 cm. It is unclear if this correlates with the area of prior concern on son labeled 9 o'clock axis 5 cm from the nipple. No other solid or cystic masses are noted in the remainder of the right breast or elsewhere in the right 9 o'clock axis. No axillary adenopathy IMPRESSION: Probably benign subcentimeter cystic change in the right lateral breast. A six-month follow-up targeted right breast ultrasound recommended to ensure stability over time ASSESSMENT: BI-RADS Category 3: Probably benign.
== END 2024-08-19 23:59 | disposition home or self-care (01) ==
LOC: RAD 12:34
PROVIDERS: PCP Student in an Organized Health Care Education/Training Program; Visit Provider Student in an Organized Health Care Education/Training Program
DX: R92.8 Other abnormal and inconclusive findings on diagnostic imaging of breast (principal)
CPT/HCPCS: 76641

== ENCOUNTER 2024-09-15 14:36 | Outpatient (CLI) | payer MEDICARE, BC, SELFPAY | END 2024-09-15 23:59 | disposition home or self-care (01) | LOC: LAB.DROPOF 09-16 14:36 | PROVIDERS: PCP Student in an Organized Health Care Education/Training Program; Visit Provider Student in an Organized Health Care Education/Training Program | DX: R39.9 Unspecified symptoms and signs involving the genitourinary system (principal); R30.0 Dysuria | CPT/HCPCS: 87086 ==

== ENCOUNTER 2024-10-13 13:14 | Outpatient (CLI) | payer MEDICARE, BC, SELFPAY ==
[2024-10-13 13:19] LABS: Microscopic, Urine URINE MICROSCOPIC (MICROSCOPIC)
[2024-10-13 14:41] LABS: Bilirubin,Urine Negative (Negative); Blood, Urine Negative (Negative); Color,Urine YELLOW (Yellow); Glucose,Urine (UA) Negative (Negative); Ketones,Urine Negative (Negative); Leukocyte Esterase,Urine 2+ (Negative); Nitrate,Urine Negative (Negative); Protein,Urine Negative (Negative); Specific Gravity, Urine >= 1.030 (1.005-1.030); Urobilinogen,Urine 0.2 EU/dl (0.2)
[2024-10-13 14:44] LABS: Appearance,Urine Cloudy (Clear)
[2024-10-13 15:00] LABS: Bacteria,Urine 1+ /lpf; RBC,Urine Occasional #/hpf (0-3)
== END 2024-10-13 23:59 | disposition home or self-care (01) ==
LOC: LAB 13:17
PROVIDERS: PCP Internal Medicine; Visit Provider Student in an Organized Health Care Education/Training Program
DX: R39.9 Unspecified symptoms and signs involving the genitourinary system (principal)
CPT/HCPCS: 81001; 87086

== ENCOUNTER 2024-11-08 20:44 | Emergency (ER) | payer MEDICARE, BC, SELFPAY ==
[2024-11-08 21:16] VITALS: BP 139/84; PULSE 94; RESP 22; TEMP 37; O2SAT 94; BMI 41.1
[2024-11-08 21:20] LABS: Coronavirus 19, PCR Not Detected (NotDetected); Influenza A, PCR Not Detected (NotDetected); Influenza B, PCR Not Detected (NotDetected)
--- NOTE | 2024-11-08 21:29 | XR_ITS ---
PROCEDURE INFORMATION: Exam: XR Chest Exam date and time: 11/08/2024 9:46 PM Age: 39 years old Clinical indication: Shortness of breath and wheezing; Additional info: SOA, wheezing julienne TECHNIQUE: Imaging protocol: Radiologic exam of the chest. Views: 1 view. COMPARISON: CR XR CHEST 2V 01/04/2024 10:21 AM FINDINGS: Lungs: No evidence of acute pulmonary disease or infiltrates Pleural spaces: No large effusion or pneumothorax. Heart/Mediastinum: No evidence of mediastinal widening or cardiac silhouette enlargement; the mediastinum and heart appear within normal limits for contour and size. Bones/joints: No evidence of acute osseous abnormalities within the visualized portions of the thoracic spine and ribs. Osseous structures appear appropriate for patient age. IMPRESSION: No dense parenchymal consolidation, pleural effusion, or pneumothorax.
[2024-11-08] MEDS: DEXAMETHASONE 4MG TABLET 10 MG PO (21:32)
--- NOTE | 2024-11-08 21:36 | HMH.EDGENADL ---
Discharge Plan Disposition Patient Disposition: Home, Self-Care Prescriptions Prescriptions: New amoxicillin 875 mg tablet 875 mg PO BID Qty: 20 0RF dexamethasone 6 mg tablet 6 mg PO DAILY Qty: 5 0RF No Action omeprazole 40 mg capsule,delayed release(DR/EC) 40 mg PO DAILY Qty: 90 2RF hydroxyzine HCl 25 mg tablet 25 - 50 mg PO HS PRN (Reason: sleep) Qty: 60 0RF meloxicam 7.5 mg tablet 7.5 mg PO DAILY Qty: 30 2RF lamotrigine [Lamictal] 25 mg tablet 25 mg PO DAILY Qty: 42 0RF Rx Instructions: Take one tablet daily for 2 weeks, then increase to 50 mg daily. If you develop a rash, stop the medication and call the clinic. fluconazole 150 mg tablet 150 mg PO Q3D 0 Days Qty: 2 0RF Rx Instructions: may repeat second dose 72 hrs after first dose if symptoms persist cyclobenzaprine 10 mg tablet 10 mg PO TID PRN (Reason: muscle spasm) 30 Days Qty: 90 3RF ketoconazole 2 % cream 1 applic topical QDAY 30 Days Qty: 30 3RF Rx Instructions: Apply to affected areas. Do not apply between toes. naltrexone-bupropion 8-90 mg tablet extended release 1 tab PO DAILY Qty: 49 0RF Rx Instructions: 1 pill in the a.m. x7 days then increase to BID phenazopyridine 100 mg tablet 100 mg PO TID PRN (Reason: pain) Qty: 6 0RF fexofenadine 180 mg tablet 180 mg PO DAILY Qty: 30 2RF albuterol sulfate 90 mcg/actuation HFA aerosol inhaler 1 inh inhalation QID Qty: 6.7 2RF alcohol swabs [Alcohol Pads] Pads, Medicated 1 pad topical BID Qty: 200 3RF (DME) lancets [Accu-Chek Softclix Lancets] Misc See Rx Instructions .Route Qty: 200 3RF Rx Instructions: TEST GLUCOSE QD (DME) blood-glucose meter [Advanced Glucose Meter] Misc See Rx Instructions .ROUTE .MEDSUPPLY Qty: 1 0RF Rx Instructions: TEST GLUCOSE QD (DME) blood sugar diagnostic Strip See Rx Instructions .ROUTE .MEDSUPPLY Qty: 1 3RF Rx Instructions: TEST GLUCOSE (DME) Accu-Chek Guide test strips Strip See Rx Instructions .Route Qty: 100 0RF Rx Instructions: test glucose QD atorvastatin 10 mg tablet See Rx Instructions .ROUTE .COMPLEX Qty: 90 3RF Dose Instruction: TAKE ONE TABLET BY MOUTH EVERY DAY AT BEDTIME Rx Instructions: TAKE ONE TABLET BY MOUTH EVERY DAY AT BEDTIME Vraylar 1.5 mg capsule 1.5 mg PO DAILY Qty: 30 0RF Referrals Follow up/Referrals: Sulma Leahy PA [Primary Care Provider] - See instructions Activity Restrictions/Add. Instructions Additional Instructions/Restrictions: Steroid each morning for the next 5 days. Amoxicillin twice daily for 10 days. Call your family doctor to establish care for this visit to the emergency department and schedule follow-up within 48 hours to ensure improvement. If you have any worsening of your condition or any other concerning signs or symptoms, return to the emergency department or your primary care doctor for further evaluation. Clinical Impressions Clinical Impression: Acute left otitis media, Bronchitis Print Language Print Language: Romansh Discharge ED Provider: Clark Hunter General Adult HPI General Chief complaint: Upper Respiratory Infection Stated complaint: SOA, cough fever ear ache OCHOA Time Seen by Provider: 11/08/24 21:12 Mode of Arrival: Ambulatory Source of Information: Patient Limitations: No Limitations Description of Symptoms (Recalled from ER Triage Doc. by RN): pt reports ear pain, headache, cough and congestion since yesterday. pt also reports hand numbness at times. History of Present Illness HPI narrative: Please note that above description of symptoms, in this electronic medical record under categorization of recalled from ER triage doctor by RN are reflective of an initial nursing assessment, however, is not reflective of my full history and physical exam that was personally taken and clarified. Consequentially, this preceding description of symptoms, which may include the patient's categorized chief complaint in the EMR, do not reflect my personal clinical impression, and the ultimate description of history of present illness and patient stated complaints should be deferred to this section of the note. Unless stated otherwise or congruent with this section of the note, additional signs, symptoms, or incongruence should be interpreted as inaccurate with my clinical impression. Related Data Previous Rx's ?Medication ?Instructions ?Recorded cyclobenzaprine 10 mg tablet 10 mg PO TID PRN muscle spasm 30 11/08/23 days #90 tabs alcohol swabs (Alcohol Pads) 1 pad topical BID #200 ea 11/22/23 blood sugar diagnostic #1 ea 11/23/23 blood-glucose meter (Advanced #1 ea 11/23/23 Glucose Meter) lancets (Accu-Chek Softclix #200 ea 11/23/23 Lancets) blood sugar diagnostic (Accu-Chek #100 ea 11/27/23 Guide test strips) atorvastatin 10 mg tablet See Rx Instructions .Route 03/25/24 .COMPLEX #90 tabs omeprazole 40 mg capsule,delayed 40 mg PO DAILY #90 caps 06/23/24 release ketoconazole 2 % topical cream 1 applic topical QDAY tinea pedis 06/24/24 30 days #30 grams naltrexone 8 mg-bupropion 90 mg 1 tab PO DAILY #49 tabs 07/21/24 tablet,extended release meloxicam 7.5 mg tablet 7.5 mg PO DAILY #30 tabs 08/05/24 hydroxyzine HCl 25 mg tablet 25 - 50 mg (1 - 2 x 25 mg) PO HS 08/15/24 PRN sleep #60 tabs phenazopyridine 100 mg tablet 100 mg PO TID PRN pain 6 doses #6 09/15/24 tabs cariprazine 1.5 mg capsule 1.5 mg PO DAILY #30 caps 10/08/24 (Vraylar) fluconazole 150 mg tablet 150 mg PO Q3D 2 doses #2 tabs 10/13/24 lamotrigine 25 mg tablet (Lamictal) 25 mg PO DAILY #42 tabs 10/15/24 fexofenadine 180 mg tablet 180 mg PO DAILY #30 tabs 10/23/24 albuterol sulfate 90 mcg/actuation 1 inh inhalation QID #6.7 grams 11/07/24 aerosol inhaler amoxicillin 875 mg tablet 875 mg PO BID #20 tabs 11/08/24 dexamethasone 6 mg tablet 6 mg PO DAILY #5 tabs 11/08/24 Allergies Allergy/AdvReac Type Severity Reaction Status Date / Time prednisone Allergy Mild UPSET Verified 11/07/24 08:50 STOMACH metformin AdvReac Unknown Gastrointestinal Verified 11/07/24 08:50 Upset [facility] Disclaimer: The information contained in this section may have been updated after the patient was seen, as this information can be updated by other users. Medical History Allergic rhinitis Otalgia, bilateral Chronic dysfunction of right eustachian tube Chronic dysfunction of left eustachian tube Eustachian tube obstruction Chronic right ear pain Pelvic pain Acute effusion of right ear Back Pain Weight gain TMJ dysfunction Right ear pain Fatty liver Probably related to her obesity. Liver function increases are minimal. Bipolar II disorder SIRS (systemic inflammatory response syndrome) Elevated LFTs Restless legs syndrome Irregular menstrual cycle DUB (dysfunctional uterine bleeding) Thyroid enlarged Depression Hypoglycemia Surgical History S/P endometrial ablation History of tubal ligation History of section Family History Other No significant family history Social History Smoking Status: Current every day smoker tobacco type: cigarettes packs per day: 1 second hand exposure: No alcohol intake: former substance use type: former substance user, marijuana and methamphetamine current occupational status: unemployed Travel in the last 8 weeks: Inside the [place] household members: family housing: house number of children: 2 current occupational exposures/hazards: No caffeine: Yes Have you lived/traveled outside US in past 30 days?: No Contact w/someone who lives/traveled outside US past 30 days?: No Exposure to someone with infectious disease in past 14 days?: No Do you have a fever (greater than 100.4 F or 38 C)?: Yes Have you tested positive for COVID-19: No Exposed to someone with COVID-19 in past 14 days?: No Do you have a sore throat?: Yes Do you have a cough?: Yes Do you have any weakness?: Yes Do you have any diarrhea?: No Are you experiencing any unusual bleeding?: No Do you have any muscle aches/pain?: Yes Do you have any abdominal pain?: No Are you experiencing loss of taste or smell?: No Other Medical History Have you received the Flu Vaccine for this season: No Have you received the Pneumonia Vaccine: No ROS Obtained: Yes All systems reviewed & no additional complaints except as documented Physical Exam General General appearance: alert Head Head exam: atraumatic and normocephalic Eye Eye exam: Present normal appearance, PERRL and EOMI Neck Neck exam: Present normal inspection, full ROM and trachea midline Respiratory Respiratory exam: Present wheezes and other (Speaking in full sentences); Absent respiratory distress, stridor, accessory muscle use or prolonged expiratory phase Cardiovascular Cardiovascular exam: Present regular rate, normal rhythm and other (Pulses equal symmetric in upper and lower extremities) Abdominal Exam Abdominal exam: Present soft; Absent distention, tenderness or pulsatile mass Extremities Exam Extremities exam: Absent edema Neurological Exam Neurological exam: Present alert, oriented X3 and CN II-XII intact; Absent motor sensory deficit Skin Skin exam: Present warm and dry; Absent diaphoresis or erythema Medical Decision Making Medical Records Medical records reviewed: Yes I reviewed the patient's medical records. Screening: Per USPSTF and CDC recommendations, given the prevalence of disease in our region, it is our hospital?s policy to screen for HIV and viral Hepatitis for all patients aged 18 and over and those with ongoing risk factors. Ravindra Inquiry Pt receiving controlled substance: No Ravindra was queried for this patient: No Vital Signs: 11/08/24 21:16 11/08/24 21:45 11/08/24 21:52 Temperature 98.6 F Temperature Source Oral Pulse Rate 91 H 104 H Pulse Rate [Right] 94 H Respiratory Rate 22 Blood Pressure [Right Arm] 139/84 Blood Pressure Mean [Right Arm] 102 02 Sat by Pulse Oximetry 94 L Oxygen Delivery Method Room Air Lab Data Lab Results 11/08/24 21:14: SARS-CoV-2 (PCR) Not detected, Influenza A Untype (PCR) Not detected, Influenza Type B (PCR) Not detected Orders (Tests/Meds): ED MEDICATIONS Discontinued Medications Generic Name Dose Route Start Last Admin Trade Name Freq PRN Reason Stop Dose Admin Albuterol/Ipratropium 9 ml 11/08/24 21:29 11/08/24 21:44 Ipratropium/Albuterol 3 Ml Neb IH 11/08/24 21:30 9 ml ONCE ONE Administration Amoxicillin/Clavulanate Potassium 1 each 11/08/24 21:38 11/08/24 21:44 Amoxicillin/Clavulanate Potassium 875/125mg Tablet PO 11/08/24 21:39 1 each ONCE ONE Administration Dexamethasone 10 mg 11/08/24 21:29 11/08/24 21:32 Dexamethasone 4mg Tablet PO 11/08/24 21:30 10 mg ONCE ONE Administration ORDERS Category Date Time Status CXR --portable [XR chest portable] Stat Exams 11/08/24 21:29 Taken Rapid PCR Covid and Flu A/B Stat Lab 11/08/24 21:14 Completed Medical Decision Narrative: 39-year-old female presenting with viral syndrome and ear pain. Patient states that symptoms started yesterday and have been quick. Started with cough that is nonproductive, shortness of breath, wheezing, bilateral ear pain, right greater than left. Also having fevers and bodyaches. Has not taken anything for any of the symptoms came in for further evaluation. Has a sick contact in the house with similar syndrome. History was obtained via conversation with patient. On arrival, patient hemodynamically stable, alert, oriented x4, appropriate, GCS 15, moving all extremities spontaneously, pupils equal and reactive to light. Full physical exam performed and significant for well-appearing female no acute distress. Mildly tachypneic and intermittently hypoxemic 92-94 on room air. Coughing. Has bilateral wheezes primarily anteriorly. Regarding ears, nose left otitis media. Differential includes viral syndrome, otitis, among others. Because patient wheezing, given Decadron, DuoNebs. Swab was obtained. Patient also given amoxicillin first dose for left otitis media. Chest x-ray obtained. On independent interpretation of workup, no acute consolidation. Patient's COVID swab/flu swab is negative. Because patient at baseline without signs or symptoms of clinical decompensation, deemed appropriate for discharge. Results were relayed to patient who voiced understanding and were agreeable to outpatient management and follow up. I discussed my clinical impression with patient and answered all questions. At this time, the evidence for any other entities in the differential is insufficient to warrant any further testing or ED observation. This was explained as well. Advisory was given that persistent or worsening symptoms require further evaluation. I confirmed the understanding of this discussion. Pie Filler disclaimer Much of this encounter note is an electronic produce department supervisor spoken language to printed text. Electronic produce department supervisor of the spoken language may permit errors. Although I have reviewed the note, some errors may still exist. Critical Care Critical Care Time Critical Care Time: No
[2024-11-08] MEDS: AMOXICILLIN/CLAVULANATE POTASSIUM 875/125MG TABLET 1 EACH PO (21:44)
[2024-11-08] MEDS: IPRATROPIUM/ALBUTEROL 3 ML NEB 9 ML IH (21:44)
[2024-11-08 21:45] VITALS: PULSE 91
[2024-11-08 21:52] VITALS: PULSE 104
[2024-11-08 23:12] VITALS: BP 177/89; PULSE 111; RESP 16; TEMP 36.7; O2SAT 92
== END 2024-11-08 23:14 | disposition home or self-care (01) ==
PROVIDERS: Emergency Provider Emergency Medicine; PCP Student in an Organized Health Care Education/Training Program
DX: J40 Bronchitis, not specified as acute or chronic (principal); H66.92 Otitis media, unspecified, left ear; R51.9 Headache, unspecified; H92.03 Otalgia, bilateral; R05.9 Cough, unspecified; R09.81 Nasal congestion; R20.0 Anesthesia of skin; M79.10 Myalgia, unspecified site
CPT/HCPCS: 71045; 87636; 99283; J7620; J8540

== ENCOUNTER 2024-11-19 11:30 | Outpatient (CLI) | payer MEDICARE, MEDICAID, SELFPAY ==
[2024-11-19 17:50] LABS: Coronavirus 19, PCR Not Detected (NotDetected); Human Rhinovirus Not Detected (NotDetected); Influenza A, PCR Not Detected (NotDetected); Influenza B, PCR Not Detected (NotDetected); Respiratory Syncytial Virus Not Detected (NotDetected)
== END 2024-11-19 23:59 | disposition home or self-care (01) ==
LOC: LAB.DROPOF 11-21 09:51
PROVIDERS: PCP Nurse Practitioner Family; Visit Provider Nurse Practitioner Family
DX: R50.9 Fever, unspecified (principal)
CPT/HCPCS: 87631

== ENCOUNTER 2025-01-30 11:31 | Outpatient (CLI) | payer MEDICARE, MEDICAID, SELFPAY ==
[2025-01-30 12:19] VITALS: BMI 41.4
[2025-01-30 12:29] LABS: Basophils # 0.1 K/mm3 (0-0.2); Basophils % 0.7 % (0.1-2.0); Eosinophils # 0.4 K/mm3 (0.0-0.4); Eosinophils % 4.3 % (0.1-12.0); Hematocrit 44.9 % (37.0-47.0); Hemoglobin 15.2 g/dL (12.2-16.2); Lymphocytes # 3.1 K/mm3 (0.7-4.5); Lymphocytes % 30.6 % (10-50); Mean Corpuscular HGB Conc 33.9 g/dL (31.8-35.4); Mean Corpuscular Hemoglobin 28.8 pg (27.0-31.2); Mean Corpuscular Volume 85.2 fl (81-99); Mean Platelet Volume 9.1 fl (7.4-10.4); Monocytes # 0.9 K/mm3 (0.1-1.0); Monocytes % 9.1 % (1.7-9.3); Neutrophils # 5.6 K/mm3 (1.8-7.8); Platelet Count 263 K/mm3 (142-424); Red Blood Count 5.27 M/mm3 (4.20-5.40); White Blood Count 10.2 K/mm3 (4.8-10.8)
[2025-01-30 12:38] LABS: Blood Urea Nitrogen 13 mg/dl (7-17); Calcium 9.3 mg/dl (8.4-10.2); Carbon Dioxide 29 mmol/L (22.0-30.0); Chloride 105 mmol/L (98-107); Creatinine Clearance Estimated 88 mL/min (50-200); Estimated Glomerular Filt Rate 80 ml/min (>60); GFR (African American) 97 ML/MIN (>60); Glucose 97 mg/dl (74-100); Potassium 3.9 mmoL/L (3.5-5.1)
[2025-01-30 12:50] LABS: Anion Gap 7.9 mEq/L (5-15); Sodium 138 mmol/L (136-145)
[2025-01-30 12:57] LABS: HCG Qualitative, Serum Negative (Negative)
== END 2025-01-30 23:59 | disposition home or self-care (01) ==
LOC: PREOP 11:33
PROVIDERS: Nurse Anesthetist, Certified Registered; PCP Internal Medicine; Visit Provider Otolaryngology
DX: R73.03 Prediabetes (principal)
CPT/HCPCS: 80048; 84703; 85025

== ENCOUNTER 2025-02-04 07:33 | Day surgery (SDC) | payer MEDICARE, MEDICAID, SELFPAY ==
[2025-01-29 12:17] VITALS: BMI 41.4
[2025-02-04] VITALS (9 sets, daily range): BP systolic 122–141; BP diastolic 70–88; PULSE 70–87; RESP 16–18; TEMP 36.3–36.6; O2SAT 92–99
--- NOTE | 2025-02-04 09:33 | P.PNANES_ITS ---
[facility] Disclaimer: The information contained in this section may have been updated after the patient was seen, as this information can be updated by other users. Medical History Preoperative examination Retracted tympanic membrane Tympanosclerosis of both ears History of recurrent ear infection Vaginal odor Left otitis media Abdominal pain Neck pain Pharyngitis Acute left otitis media Bronchitis Allergic rhinitis Otalgia, bilateral Chronic dysfunction of right eustachian tube Chronic dysfunction of left eustachian tube Eustachian tube obstruction Chronic right ear pain Pelvic pain Acute effusion of right ear Back Pain Weight gain TMJ dysfunction Right ear pain Fatty liver Bipolar II disorder SIRS (systemic inflammatory response syndrome) Elevated LFTs Restless legs syndrome Irregular menstrual cycle DUB (dysfunctional uterine bleeding) Thyroid enlarged Depression Hypoglycemia Surgical History History of foot surgery S/P endometrial ablation History of tubal ligation History of section Family History Other No significant family history Social History Smoking Status: Current every day smoker tobacco type: cigarettes packs per day: 2 second hand exposure: No alcohol intake: former substance use type: former substance user, marijuana and methamphetamine current occupational status: unemployed Travel in the last 8 weeks: None household members: family housing: house number of children: 2 current occupational exposures/hazards: No caffeine: Yes Have you lived/traveled outside US in past 30 days?: No Contact w/someone who lives/traveled outside US past 30 days?: No Exposure to someone with infectious disease in past 14 days?: No Do you have a fever (greater than 100.4 F or 38 C)?: No Have you tested positive for COVID-19: No Exposed to someone with COVID-19 in past 14 days?: No Do you have a sore throat?: No Do you have a cough?: No Do you have any weakness?: No Do you have any diarrhea?: No Are you experiencing any unusual bleeding?: No Do you have any muscle aches/pain?: No Do you have any abdominal pain?: No Are you experiencing loss of taste or smell?: No [facility] Anesthesia Checklist Patient Identification Patient Identification: Arm Band Structural Data Admitted From: Home Planned Operative Procedure/s: BMT Consent for Planned Operative Procedure(s) Verified: Yes Verified Documents: Surgical Consent and History and Physical NPO Status Verified Time NPO: 00:00 Additional verifications Anesthesia Reactions: No Hx Blood Transfusions: No Blood Transfusion Reaction: No Airway Assessment Mallampati Score:: Class II C-Spine Mobility Assessed: Yes TMJ Mobility Assessed: Yes Dentition: Edentulous Neurological Assessment Level of Consciousness: Awake, Alert and Appropriate Anesthesia Plan Anesthesia Risk discussed: Yes Anesthesia Plan: Verified ASA Class: III Anesthesia Type: General
[2025-02-04] MEDS: CIPRO 0.3%-DEX 0.1% OTIC SUSP 7.5ML 7.5 ML OT (09:59)
--- NOTE | 2025-02-04 10:11 | EXP.OP.NOTE ---
Date of procedure: 02/04/25 Pre-op Diagnosis:: Chronic serous otitis media Post-op Diagnosis:: Chronic serous otitis media Procedure performed:: Bilateral tympanostomy and tube placement Surgeon:: García Larios MD [employer]AREHOUSE DEVELOPER:: Other Anesthesia: GETA Estimated blood loss (mL): 0 Operative findings:: Mucoid middle ear effusion left middle ear space, right middle ear space was clear Operative note:: The patient was brought to the operating room and after adequate general anesthesia the ears were draped in the usual sterile fashion and operating microscope employed to visualize the tympanic membranes. Tympanostomies were made in the anterior-inferior quadrant and this was done bilaterally. Suction was employed to clear the middle ear space of effusion. T tubes were then placed and Ciprodex drops applied and the procedure concluded. All counts correct and blood loss 0 Condition: stable Disposition: PACU Complications:: No complications
--- NOTE | 2025-02-04 10:43 | EXP.ANES.I ---
[facility] Anesthesia Record Part I Anesthesia Record I Intake, IV Amount: 0 Hydration: Adequate Estimated blood loss (mL): 0 Urine output (mL): 0 Blood Products used (#): none Blood Pressure: 138/88 SaO2: 95 Pulse Rate: 87 Airway Patency: Patent Respiratory Rate: 16 Temperature: 98 F Patient is:: Awake and Stable Stable to PACU at:: 10:11
--- NOTE | 2025-02-05 15:39 | EXP.ANES.II ---
[facility] Anesthesia Record Part II Anesthesia Record Part II Discharge Time: 10:41 Destination: Surgical Day Care (OP Surgery) PACU nurse assessment reviewed?: Yes Patient Condition:: Good Anesthesia Complications:: None Swallowing reflex intact?: Yes Airway Patency: Patent Cyanosis?: No Blood Pressure: 127/86 SaO2: 96 Respiratory Rate: 18 Pulse Rate: 77 Temperature: 97.8 F Mental Status: Alert & Oriented Pain level:: 0 Nausea and/or vomitting:: None Intake, IV Amount: 0 Hydration: Adequate
[2025-02-05 15:40] VITALS: BP 127/86; PULSE 77; RESP 18; TEMP 36.6; O2SAT 96
== END 2025-02-04 11:13 | disposition home or self-care (01) ==
PROVIDERS: PCP Internal Medicine; Visit Provider Otolaryngology
PROC: (CPT 69436; principal; 2025-02-04 09:30)
DX: H65.23 Chronic serous otitis media, bilateral (principal); Z72.0 Tobacco use
CPT/HCPCS: 69436; J1100; J1200; J2250; J2405

== ENCOUNTER 2025-02-24 11:58 | Outpatient (CLI) | payer MEDICARE, MEDICAID, SELFPAY ==
--- NOTE | 2025-02-24 11:59 | US_ITS ---
PROCEDURE INFORMATION: Exam: US Right Breast, Complete Exam date and time: 02/24/2025 2:21 PM Age: 39 years old Clinical indication: Follow-up probably benign finding in the right breast. TECHNIQUE: Imaging protocol: Complete ultrasound of all four quadrants of the right breast and the retroareolar regions, including ultrasound of the axilla when performed. COMPARISON: US BREAST RT COMPLETE 08/19/2024 12:53 PM FINDINGS: ULTRASOUND: Breast ultrasound findings: Ultrasound of the right breast at the 9 o'clock axis, 5 cm from the demonstrates a cluster of cysts measuring 0 point 0 6 x 0 3 cm, unchanged since 08/19/2024. There is no new or suspicious mass, shadowing, distortion, or right axillary adenopathy. IMPRESSION: Cluster of cysts in the right breast 9 o'clock axis are stable since 08/19/2024. Follow-up ultrasound in 6 months is recommended. ASSESSMENT: BI-RADS Category 3: Probably benign.
== END 2025-02-24 23:59 | disposition home or self-care (01) ==
LOC: RAD 11:59
PROVIDERS: PCP Student in an Organized Health Care Education/Training Program; Visit Provider Student in an Organized Health Care Education/Training Program
DX: R92.8 Other abnormal and inconclusive findings on diagnostic imaging of breast (principal)
CPT/HCPCS: 76641

== ENCOUNTER 2025-03-13 14:56 | Outpatient (CLI) | payer MEDICARE, MEDICAID, SELFPAY ==
--- NOTE | 2025-03-13 15:00 | MM_ITS ---
PROCEDURE INFORMATION: Exam: MG Bilateral Screening 3D Mammography Exam date and time: 03/13/2025 3:09 PM Age: 39 years old Clinical indication: Baseline. No family history of breast cancer. TECHNIQUE: Imaging protocol: Bilateral Screening tomosynthesis and 2D mammography including computer-aided detection (CAD) when performed. COMPARISON: 1. US BREAST RT COMPLETE 02/24/2025 2:21 PM 2. SD MM DIG SCREENING MAMM BI W/CAD 03/13/2025 3:09 PM 3. US BREAST RT COMPLETE 08/19/2024 12:53 PM FINDINGS: MAMMOGRAPHY: Breast composition: There are scattered areas of fibroglandular density. Mass: None. Architectural distortion: None. Calcifications: No suspicious calcifications. Asymmetric density: None. Skin thickening: None. Axillary adenopathy: None. IMPRESSION: See comment No mammographic evidence of malignancy. Annual screening is recommended unless otherwise clinically indicated. Please note that six-month follow-up sonography is advised on the right and from sonography report 02/24/2025. ASSESSMENT: BI-RADS Category 1: Negative.
== END 2025-03-13 23:59 | disposition home or self-care (01) ==
LOC: RAD 14:58
PROVIDERS: PCP Nurse Practitioner; Visit Provider Nurse Practitioner
DX: Z12.31 Encounter for screening mammogram for malignant neoplasm of breast (principal)
CPT/HCPCS: 77063; 77067

== ENCOUNTER 2025-04-19 07:49 | Emergency (ER) | payer MEDICARE, MEDICAID, SELFPAY ==
[2025-04-19 07:55] VITALS: BP 118/71; PULSE 80; O2SAT 95
--- OUTSIDE RECORDS SUMMARY | 2025-04-19 07:56 | XMS_ITS ---
Author Organization Unknown TREATMENT PLAN [facility] Start Date Provider Encounter for Check-up [id number] [facility]
--- OUTSIDE RECORDS SUMMARY | 2025-04-19 07:56 | XMS_ITS | Clinical Summary ---
Author Organization Healthcare Address [address] [place] [address] Care Team Providers Care Senior Production Planner Name Role Phone Wm Lockwood MD Primary Care Provider + [phone] Family History Medical History Relation Name Comments Heart attack Other Relation Name Status Comments Other Social History Tobacco Use Types Packs/Day Years Used Date Smoking Tobacco: Every Day Alcohol Use Standard Drinks/Week Comments Yes 0 (1 standard drink = 0.6 oz pur e alcohol) Comments Unknown Sex and Gender Information Value Date Recorded Sex Assigned at Not on file Legal Sex Female 6:35 PM EDT Gender Identity Not on file Sexual Orientation Not on file Last Filed Vital Signs Vital Sign Reading Time Taken Comments Blood Pressure 145/83 01/02/2020 7:38 AM EST Pulse 97 01/02/2020 7:38 AM EST Temperature - - Respiratory Rate - - Oxygen Saturation - - Inhaled Oxygen Concentration - - Weight 122 kg (270 lb) 01/02/2020 7:38 AM EST Height 167.6 cm (5' 6 ) 01/02/2020 7:38 AM EST Body Mass Index 43.58 01/02/2020 7:38 AM EST Plan of Treatment Health Maintenance Due Date Last Done Comments Dental Oral Exam 1985 Dental Prophylaxis 1985 Dental X-Ray: Bitewings 1985 Dental X-Ray: Full Mouth 1985 [facility]-Depression Screening 1985 [facility]-/Child/Adol SDOH Screenings 1985 [facility]-Varicella Vaccines (1 of 2 - 13+ 2-dose series) 1998 HPV Vaccines (1 - 3-dose series) 2000 [facility]- SDOH Screenings 2003 [facility]-Adult SDOH Screenings 2003 [facility]-DTaP,Tdap,and Td Vaccine s (1 - Tdap) 2004 [facility]-Hepatitis B Vaccines (1 of 3 - 19+ 3-dose series) 2004 [facility]-Pap Smear 2006 [facility]-Cervical Cancer Screening 2015 [facility]-HPV/Cotest 2015 [facility]-TRIPC-95 Vaccine (1 - 20 24-25 season) 2024 [facility]-Influenza Vaccine ([place]as[place] n Ended) 2025 12/01/2017 [facility]-Zoster Vaccines (1 of 2) 2035 [facility]-HIB Vaccines Aged Out No longer e ligible based on patient's age to complete this topic [facility]-Hepatitis A Vaccines Aged Out No longer eligible based on patient's age to complete this topic [facility]-IPV Vaccines Aged Out No longer e ligible based on patient's age to complete this topic [facility]-Pneumococcal Vaccine: Pediatrics (0 to 5 Years) and At-Risk Patients (6 to 49 Years) Aged Out No long er eligible based on patient's age to complete this topic [facility]-Rotavirus Vaccines Aged Out No lo nger eligible based on patient's age to complete this topic Insurance MEDICARE Care Teams Senior Production Planner Relationship Specialty Start Date End Date Wm Lockwood MD [address] [facility] [place] [id number] PCP - General 03/25/21
[2025-04-19 08:00] VITALS: BP 112/65; PULSE 86; O2SAT 97
--- NOTE | 2025-04-19 08:03 | XR_ITS ---
PROCEDURE INFORMATION: Exam: XR Left Ankle Exam date and time: 04/19/2025 8:13 AM Age: 39 years old Clinical indication: Pain; Ankle; Left; Additional info: Midfoot pain x 3 days, no known trauma TECHNIQUE: Imaging protocol: Radiologic exam of the left ankle. Views: 3 or more views. COMPARISON: MR ANKLE LT WO CON 03/03/2024 12:55 PM FINDINGS: Bones/joints: No evidence of fracture or dislocation. Soft tissues: Soft tissue swelling. IMPRESSION: Soft tissue swelling. No evidence of fracture or dislocation
--- NOTE | 2025-04-19 08:03 | XR_ITS ---
PROCEDURE INFORMATION: Exam: XR Left Foot Exam date and time: 04/19/2025 8:13 AM Age: 39 years old Clinical indication: Pain; Foot; Left; Additional info: Midfoot pain x 3 days, no known trauma TECHNIQUE: Imaging protocol: Radiologic exam of the left foot. Views: 3 or more views. COMPARISON: CR XR FOOT WT BEARING LT 3V 02/11/2024 2:20 PM FINDINGS: Bones/joints: Normal. Soft tissues: Normal. IMPRESSION: No acute findings.
[2025-04-19 08:05] VITALS: BP 118/71; PULSE 81; RESP 14; TEMP 37; O2SAT 98; BMI 35.5
--- NOTE | 2025-04-19 08:06 | HMH.EDGENADL ---
Discharge Plan Disposition Patient Disposition: Home, Self-Care Condition: Good Prescriptions Prescriptions: New naproxen 500 mg tablet 500 mg PO BID Qty: 14 0RF No Action cyclobenzaprine 10 mg tablet 10 mg PO TID PRN (Reason: muscle spasm) 30 Days Qty: 90 3RF fexofenadine 180 mg tablet 180 mg PO DAILY Qty: 30 2RF albuterol sulfate 90 mcg/actuation HFA aerosol inhaler 1 inh inhalation QID Qty: 6.7 2RF lamotrigine [Lamictal] 25 mg tablet 100 mg PO DAILY Qty: 120 0RF Rx Instructions: If you develop a rash, stop the medication and call the clinic. trazodone 50 mg tablet 50 mg PO DAILY Qty: 30 2RF (DME) lancets [Accu-Chek Softclix Lancets] Misc See Rx Instructions .Route Qty: 200 3RF Rx Instructions: TEST GLUCOSE QD (DME) blood-glucose meter [Advanced Glucose Meter] Misc See Rx Instructions .ROUTE .MEDSUPPLY Qty: 1 0RF Rx Instructions: TEST GLUCOSE QD (DME) blood sugar diagnostic Strip See Rx Instructions .ROUTE .MEDSUPPLY Qty: 1 3RF Rx Instructions: TEST GLUCOSE (DME) Accu-Chek Guide test strips Strip See Rx Instructions .Route Qty: 100 0RF Rx Instructions: test glucose QD atorvastatin 10 mg tablet See Rx Instructions .ROUTE .COMPLEX Qty: 90 3RF Dose Instruction: TAKE ONE TABLET BY MOUTH EVERY DAY AT BEDTIME Rx Instructions: TAKE ONE TABLET BY MOUTH EVERY DAY AT BEDTIME omeprazole 40 mg capsule,delayed release(DR/EC) See Rx Instructions .ROUTE .COMPLEX Qty: 90 2RF Dose Instruction: TAKE ONE CAPSULE BY MOUTH EVERY DAY Rx Instructions: TAKE ONE CAPSULE BY MOUTH EVERY DAY Referrals Follow up/Referrals: Mitchel Lomeli DO [Staff Physician, Orthopedics] - See instructions Heena Kruger APRN [Primary Care Provider, Medical] - See instructions Activity Restrictions/Add. Instructions Additional Instructions/Restrictions: You were evaluated in the emergency department today. At this time, x-rays are reassuring. We have provided you with a special type of shoe to help support your foot to reduce pain. I also prescribed an anti-inflammatory for you to take twice daily for 14 days. If you continue to have significant pain, I recommend close follow-up with orthopedics or your primary care provider. Return to the emergency department for new or worsening symptoms, such as high fevers, significant redness/warmth/skin changes. Clinical Impressions Clinical Impression: Acute pain of left foot Stand Alone Forms Stand Alone Forms: Work/School Release Instructions Patient Instructions: DI for Foot Pain, DI for Peripheral Edema -- Bilateral Print Language Print Language: Citizen Of [place] Discharge ED Provider: Angi Albright General Adult HPI General Chief complaint: Extremity Injury, Lower Stated complaint: L foot pain/swelling Time Seen by Provider: 04/19/25 07:59 History of Present Illness HPI narrative: This patient is a 39-year-old female with a history of obesity, anxiety, osteoarthritis of the bilateral feet, prediabetes, and tobacco use presenting to the emergency department for evaluation with concern for left foot pain. Patient has that she is not sure what she did to her left foot, but it has been hurting for the last 3 days and has been very swollen. She states that it hurts on the top of her midfoot and is worse with any sort of movement such as extension of the foot or lifting up of her toes. She is still able to walk, though it is painful. No redness, warmth, or skin color changes. No wounds. No pain in her upper leg. No known falls or traumatic injury or increase in strenuous activity. Related Data Previous Rx's ?Medication ?Instructions ?Recorded cyclobenzaprine 10 mg tablet 10 mg PO TID PRN muscle spasm 30 11/08/23 days #90 tabs blood sugar diagnostic #1 ea 11/23/23 blood-glucose meter (Advanced #1 ea 11/23/23 Glucose Meter) lancets (Accu-Chek Softclix #200 ea 11/23/23 Lancets) blood sugar diagnostic (Accu-Chek #100 ea 11/27/23 Guide test strips) atorvastatin 10 mg tablet See Rx Instructions .Route 03/25/24 .COMPLEX #90 tabs fexofenadine 180 mg tablet 180 mg PO DAILY #30 tabs 10/23/24 albuterol sulfate 90 mcg/actuation 1 inh inhalation QID #6.7 grams 11/24/24 aerosol inhaler omeprazole 40 mg capsule,delayed See Rx Instructions .Route 04/09/25 release .COMPLEX #90 caps lamotrigine 25 mg tablet (Lamictal) 100 mg (4 x 25 mg) PO DAILY #120 04/13/25 tabs trazodone 50 mg tablet 50 mg PO DAILY #30 tabs 04/13/25 naproxen 500 mg tablet 500 mg PO BID #14 tabs 04/19/25 Allergies Allergy/AdvReac Type Severity Reaction Status Date / Time prednisone Allergy Mild UPSET Verified 04/19/25 08:13 STOMACH metformin AdvReac Unknown Gastrointestinal Verified 04/19/25 08:13 Upset PFSH PFS Disclaimer: The information contained in this section may have been updated after the patient was seen, as this information can be updated by other users. Medical History Left ear pain Preoperative examination Retracted tympanic membrane Tympanosclerosis of both ears History of recurrent ear infection Vaginal odor Left otitis media Abdominal pain Neck pain Pharyngitis Acute left otitis media Bronchitis Allergic rhinitis Otalgia, bilateral Chronic dysfunction of right eustachian tube Chronic dysfunction of left eustachian tube Eustachian tube obstruction Chronic right ear pain Pelvic pain Acute effusion of right ear Back Pain Weight gain TMJ dysfunction Right ear pain Fatty liver Bipolar II disorder SIRS (systemic inflammatory response syndrome) Elevated LFTs Restless legs syndrome Irregular menstrual cycle DUB (dysfunctional uterine bleeding) Thyroid enlarged Depression Hypoglycemia Surgical History History of foot surgery S/P endometrial ablation History of tubal ligation History of section Family History Other No significant family history Social History Smoking Status: Current every day smoker tobacco type: cigarettes packs per day: 2 second hand exposure: No alcohol intake: former substance use type: former substance user, marijuana and methamphetamine current occupational status: unemployed Travel in the last 8 weeks?: None household members: family housing: house number of children: 2 current occupational exposures/hazards: No caffeine: Yes Have you lived/traveled outside [place] in past 30 days?: No Contact w/someone who lives/traveled outside US past 30 days?: No Exposure to someone with infectious disease in past 14 days?: No Do you have a fever (greater than 100.4 F or 38 C)?: No Have you tested positive for COVID-19?: No Exposed to someone with COVID-19 in past 14 days?: No Do you have a sore throat?: No Do you have a cough?: No Do you have any weakness?: No Do you have any diarrhea?: No Are you experiencing any unusual bleeding?: No Do you have any muscle aches/pain?: No Do you have any abdominal pain?: No Are you experiencing loss of taste or smell?: No Other Medical History Have you received the Flu Vaccine for this season: No Have you received the Pneumonia Vaccine: No ROS Obtained: Yes All systems reviewed & no additional complaints except as documented Physical Exam General General appearance: alert and in no apparent distress Head Head exam: atraumatic and normocephalic Eye Eye exam: Present normal appearance, PERRL and EOMI ENT ENT exam: Present normal exam, normal oropharynx, mucous membranes moist and normal external ear exam Neck Neck exam: Present normal inspection, full ROM and trachea midline; Absent tenderness Chest Chest inspection: Present normal inspection and symmetric chest wall rise; Absent tenderness Respiratory Respiratory exam: Present normal lung sounds bilaterally; Absent respiratory distress, wheezes, stridor or accessory muscle use Cardiovascular Cardiovascular exam: Present regular rate and normal rhythm Abdominal Exam Abdominal exam: Present soft; Absent distention, tenderness or guarding Extremities Exam Extremities exam: Present tenderness, normal capillary refill, edema and other (Pedal edema to the left foot with tenderness to palpation of the dorsal aspect of the left midfoot. No redness, warmth, rashes, or skin changes. No open wounds noted. Neurovascularly intact distally. Range of motion limited secondary to pain) Back Exam Back exam: Present normal inspection and full ROM; Absent tenderness Neurological Exam Neurological exam: Present alert, oriented X3, CN II-XII intact and normal gait; Absent motor sensory deficit Psychiatric Psychiatric exam: Present normal affect and normal mood Skin Skin exam: Present warm and dry Medical Decision Making Medical Records Medical records reviewed: Yes I reviewed the patient's medical records. Screening: Per USPSTF and CDC recommendations, given the prevalence of disease in our region, it is our hospital?s policy to screen for HIV and viral Hepatitis for all patients aged 18 and over and those with ongoing risk factors. Ravindra Inquiry Pt receiving controlled substance: No Vital Signs: 04/19/25 07:55 04/19/25 08:00 04/19/25 08:05 Temperature 98.6 F Temperature Source Oral Pulse Rate 80 86 Pulse Rate [Left] 81 Respiratory Rate 14 Blood Pressure 118/71 112/65 Blood Pressure [Right Arm] 118/71 Blood Pressure Mean [Right Arm] 86 Blood Pressure Source [Right Arm] Automatic Cuff Blood Pressure Position [Right Arm] Sitting 02 Sat by Pulse Oximetry 95 97 98 Oxygen Delivery Method Room Air Room Air Room Air 04/19/25 08:31 04/19/25 09:00 Temperature Temperature Source Pulse Rate 74 66 Pulse Rate [Left] Respiratory Rate Blood Pressure 106/63 L 117/72 Blood Pressure [Right Arm] Blood Pressure Mean [Right Arm] Blood Pressure Source [Right Arm] Blood Pressure Position [Right Arm] 02 Sat by Pulse Oximetry 97 100 Oxygen Delivery Method Room Air Room Air Lab Data Lab results reviewed: Yes I reviewed the patient's lab results. Orders (Tests/Meds): ED MEDICATIONS Discontinued Medications Generic Name Dose Route Start Last Admin Trade Name Freq PRN Reason Stop Dose Admin Ketorolac Tromethamine 30 mg 04/19/25 09:16 Ketorolac 30mg/Ml Vial IM 04/19/25 09:17 ONCE ONE ORDERS Category Date Time Status Ankle XR - Left minimum 3 Views [XR ankle LT min 3V] Exams 04/19/25 08:03 Completed Stat Foot XR left minimum 3 views [XR foot LT min 3V] Stat Exams 04/19/25 08:03 Completed Medical Decision Narrative: In summary, this patient is a 39-year-old female presenting to the Emergency Department for evaluation of left foot pain with no known trauma. Differential diagnoses considered include but are not limited to musculoskeletal strain/sprain, stress fracture, tendinitis, cellulitis. Ruling out the most morbid conditions drove assessment. It should be noted patient's history includes obesity, tobacco use, GERD, anxiety, prediabetes, and osteoarthritis of the bilateral feet which may or may not be at goal therapy. This complicates all aspects of care by increasing patient's risk for morbidity. I reviewed patient's past medical records and noted previous diagnoses of tendinitis to her bilateral lower extremities and foot osteoarthritis. On exam, the patient is sitting upright in no acute distress. He is afebrile and nontoxic-appearing. She has swelling and tenderness to the dorsal aspect of the left midfoot but no redness, warmth, skin color changes, or wounds. She is neurovascularly intact distally. Workup included x-rays of the left foot and ankle. I considered obtaining basic lab evaluation, however based on history and clinical exam, I do not think that the patient likely has infection such as cellulitis causing her pain. I independently interpreted x-ray prior to the radiologist read and noted no acute fracture. Please see their read for final interpretation. As above, exam and history are reassuring against infectious etiology, so I feel she possibly could have tendinitis. She was given a [place] shoe to help offload weight from her foot and support ambulation, IM Toradol for pain control and anti-inflammatory, and a prescription for naproxen. I gave her instructions for close follow-up with PCP versus orthopedics if she continues to have significant pain. She was also given strict return precautions. She was discharged after all questions were answered Critical Care Critical Care Time Critical Care Time: No
[2025-04-19 08:31] VITALS: BP 106/63; PULSE 74; O2SAT 97
--- NOTE | 2025-04-19 08:36 | PC.NURSE ---
Rounded on patient, cup of ice given at this time.
[2025-04-19 09:00] VITALS: BP 117/72; PULSE 66; O2SAT 100
[2025-04-19 09:23] VITALS: BP 118/76; PULSE 75; RESP 15; TEMP 36.7; O2SAT 99
[2025-04-19] MEDS: KETOROLAC 30MG/ML VIAL 30 MG IM (09:23)
== END 2025-04-19 09:24 | disposition home or self-care (01) ==
PROVIDERS: Emergency Provider Emergency Medicine; PCP Nurse Practitioner
DX: M79.672 Pain in left foot (principal)
CPT/HCPCS: 73610; 73630; 96372; 99284; J1885

== ENCOUNTER 2025-09-21 11:26 | Outpatient (CLI) | payer MEDICARE, MEDICAID, SELFPAY ==
--- NOTE | 2025-09-21 11:32 | XR_ITS ---
FINAL REPORT CLINICAL HISTORY: HEEL PAIN COMPARISON: 04/19/2025 FINDINGS: Three views of the left foot show no evidence of acute displaced fracture or dislocation of the visualized bony architecture. Minimal plantar calcaneal spurring. There is mild sclerosis of the navicular bone, similar to the prior study. This could be sequela from old trauma or AVN. The joints are intact. IMPRESSION: No acute bony abnormality. Minimal plantar calcaneal spurring. Reviewed, Interpreted and Dictated by Julián Rodas MD Transcribed by Elisabet Rolle Authenticated and [facility]
--- OUTSIDE RECORDS SUMMARY | 2025-09-21 11:36 | XMS_ITS | Clinical Summary ---
Author Organization Healthcare Address [address] [place] [address] Care Team Providers Care Cold Roll Catcher Name Role Phone Wm Lockwood MD Primary Care Provider + [phone] Family History Medical History Relation Name Comments [...] Health Maintenance Due Date Last Done Comments [facility]-Depression Screening 1985 [facility]-/Child/Adol SDOH Screenings 1985 [facility]-Varicella Vaccines (1 of 2 - 13+ 2-dose series) 1998 [facility]- SDOH Screenings 2003 [facility]-Adult SDOH Screenings 2003 [facility]-DTaP,Tdap,and Td Vaccine s (1 - Tdap) 2004 [facility]-Hepatitis B Vaccines (1 of 3 - 19+ 3-dose series) 2004 [facility]-Pap Smear 2006 HPV Vaccines (1 - 3-dose SCD M series) 2012 [facility]-Cervical Cancer Screening 2015 [facility]-HPV/Cotest 2015 [id number] Vaccine (1 - 20 24-25 season) 2025 [facility]-Influenza Vaccine (#1) 2025 12/01/2017 [facility]-Zoster Vaccines (1 of 2) [...] age to complete this topic Insurance MEDICARE Member Subscriber Plan / Payer (Ef fective 2014-Present) Name:Nicole Cid Member ID:[id number] Relation to Subscriber:Self Name:Nicole Cid Subscriber ID:[id number] Payer ID:MEDICARE Group ID:Not on file Type:Medicare Address: [address] Care Teams Cold Roll Catcher Relationship Specialty Start Date End Date Wm Lockwood MD [address] [facility] [place] [id number] PCP - General 03/25/21
== END 2025-09-21 23:59 | disposition home or self-care (01) ==
PROVIDERS: PCP Nurse Practitioner; Visit Provider Nurse Practitioner
DX: M77.32 Calcaneal spur, left foot (principal); M85.872 Other specified disorders of bone density and structure, left ankle and foot
CPT/HCPCS: 73630

== ENCOUNTER → 2025-10-22 20:07 | Outpatient (CLI) | payer MEDICARE, MEDICAID, SELFPAY ==
--- OUTSIDE RECORDS SUMMARY | 2025-10-22 20:11 | XMS_ITS | Clinical Summary ---
Author Organization Healthcare Address [address] [place] [address] Care Team Providers Care Supervisor [place] Name Role Phone Wm Lockwood MD Primary Care Provider + [phone] Family History Medical History Relation Name Comments [...] 2012 [facility]-Cervical Cancer Screening 2015 [facility]-HPV/Cotest 2015 [id number] Vaccine ( - 20 25- season) 2025 [facility]-Influenza Vaccine (#1) 2025 12/01/2017 [...] Payer (Ef fective 2014-Present) Name:Nicole Cid Member ID:[id number] Relation to Subscriber:Self Name:Nicole Cid Subscriber ID:[id number] Payer ID:MEDICARE Group ID:Not on file Type:Medicare Address: [address] Care Teams Supervisor [place] Relationship Specialty Start Date End Date Wm Lockwood MD [address] [facility] [place] [id number] PCP - General 03/25/21
== END ==
PROVIDERS: PCP Nurse Practitioner; Visit Provider Nurse Practitioner
DX: G47.30 Sleep apnea, unspecified (principal)
CPT/HCPCS: 95810

== ENCOUNTER 2025-11-11 10:18 | Outpatient (CLI) | payer MEDICARE, MEDICAID, SELFPAY ==
--- OUTSIDE RECORDS SUMMARY | 2025-11-11 10:22 | XMS_ITS | Clinical Summary ---
Author Organization Healthcare Address [address] [place] [address] Care Team Providers Care Aviation Boatswain'S Mate Name Role Phone Wm Lockwood MD Primary Care Provider + [phone] Family History Medical History Relation Name Comments [...] 2006 [facility]-Cervical Cancer Screening 2015 [facility]-HPV/Cotest 2015 [id number] Vaccine ( 25-26 season) 2025 [facility]-Influenza Vaccine (#1) 2025 12/01/2017 [facility]-Zoster Vaccines (1 of 2) 2035 HPV Vaccines (No Doses Required) Completed [facility]-HIB Vaccines Aged Out No longer e [...] complete this topic Insurance MEDICARE Care Teams Aviation Boatswain'S Mate Relationship Specialty Start Date End Date Wm Lockwood MD [address] [facility] [place] [id number] PCP - General 03/25/21
== END 2025-11-11 23:59 | disposition home or self-care (01) ==
LOC: RT 10:19
PROVIDERS: PCP Nurse Practitioner; Visit Provider Podiatrist
DX: R09.89 Other specified symptoms and signs involving the circulatory and respiratory systems (principal); R20.9 Unspecified disturbances of skin sensation